=== PATIENT | female | born 1945 | race Caucasian/White ===

== ENCOUNTER 2017-02-04 14:35 | Observation (INO) ==
[2017-02-04] MEDS ORDERED: Aspirin 81 MG TAB.CHEW PO STA (14:56)
[2017-02-04] MEDS ORDERED: Gabapentin 300 MG CAPSULE PO SCH ×2 (15:00→21:00)
--- NOTE | 2017-02-04 15:04 | Emergency Department Note ---
Disposition Clinical Impression: HTN (hypertension) Qualifiers: Hypertension type: essential hypertension Qualified Code(s): I10 - Essential ( primary) hypertension Chest pain Qualifiers: Chest pain type: unspecified Qualified Code(s): R07.9 - Chest pain, unspecified Disposition: Admitted As Inpatient Condition: Fair Time of Disposition: 16:44 Chest Pain HPI - General Chief Complaint: ED General Medical Stated Complaint: "sent from PCP for high BP" Time Seen by Provider: 02/04/17 14:49 Source: EMS Limitations: no limitations Vital Signs Reviewed: Yes Nursing Notes Reviewed: Yes - History of Present Illness HPI Narrative: 71-year-old who went into her doctor's office for her routine follow-up was found to have elevated blood pressure. The office note list visual changes. Patient states that she is legally blind and that is not new. Notes state that she has a headache, however the patient denies a headache at this time. She does however complain of some chest pressure. Pt complaint: chest pain Onset (ago): Just TUR[place]ON[place] Duration: intermittent Onset: during rest Pain Location: substernal, left chest Severity: now resolved Severity scale (1-10): 0 Quality: tightness, aching Pain Radiation: none Improves with: nothing Worsens with: nothing Context: other (Is found to have elevated blood pressure at the office visit) Associated symptoms: Denies: nausea, vomiting Treatments prior to arrival chest pain: none - Related Data Home Medications Medication Instructions Recorded Confirmed Adalimumab [Humira Crohn's] 40 mg SQ Q2W 04/20/15 02/04/17 Albuterol Sulfate [Ventolin Hfa] 2 puff IH Q4H PRN 04/20/15 02/04/17 Atorvastatin Calcium [Lipitor] 20 mg PO HS 04/20/15 02/04/17 Budesonide/Formoterol 160/4.5 2 puff IH BIDR 04/20/15 02/04/17 [Symbicort] Ergocalciferol (VITAMIN D2) 50,000 unit PO SA 04/20/15 02/04/17 [Vitamin D2 (50,000 UNIT)] Gabapentin [Neurontin] 600 mg PO HS 04/20/15 02/04/17 Ibuprofen [Motrin] 800 mg PO TID PRN 04/20/15 02/04/17 LevETIRAcetam [Keppra] 500 mg PO Q12H 04/20/15 02/04/17 Metoprolol [Lopressor] 50 mg PO BID 04/20/15 02/04/17 Multivitamin/Iron/Folic Acid 1 each PO DAILY 04/20/15 02/04/17 [Centrum Complete Multivit Tab] Pantoprazole Sodium [Protonix] 40 mg PO DAILY 04/20/15 02/04/17 Sertraline [Zoloft] 100 mg PO DAILY 04/20/15 02/04/17 Ammonium Lactate 1 appl TP BID PRN 02/04/17 02/04/17 Betamethasone Dipropionate 1 appl TP BID 02/04/17 02/04/17 Bupropion HCl [Wellbutrin Xl] 300 mg PO QAM 02/04/17 02/04/17 Ciclopirox [Ciclopirox] 1 appl TP BID 02/04/17 02/04/17 Gabapentin [Neurontin] 300 mg PO BID 02/04/17 02/04/17 Lisinopril [Zestril] 20 mg PO DAILY 02/04/17 02/04/17 Magnesium 250 mg PO DAILY 02/04/17 02/04/17 Polyethylene Glycol 3350 [MiraLAX] 17 gm PO DAILY 02/04/17 02/04/17 Suvorexant [Belsomra] 20 mg PO HS PRN 02/04/17 02/04/17 Previous Rx's Medication Instructions Recorded Aspirin Enteric Coated [Aspirin EC] 81 mg PO DAILY #14 tablet. 04/21/15 Clopidogrel [Plavix] 75 mg PO DAILY #14 tablet 04/21/15 Allergies Allergy/AdvReac Type Severity Reaction Status Date / Time hydrocodone [From [place]] Allergy Rash Verified 04/20/15 16:45 Influenza Virus Vaccines Allergy See Verified 04/20/15 16:45 Comments Iodinated Contrast- Oral and Allergy Anaphylaxis Verified 04/20/15 12:48 IV Dye [Iodinated Contrast Media - IV Dye] All systems ED: reviewed and negative except as stated. Constitutional: Denies: fever, chills, weakness, weight change Eyes: Denies: eye pain, eye discharge, vision change ENT ED: Denies: ear pain, throat pain, dental pain, hearing loss, epistaxis, congestion, dysphagia Cardiovascular: Reports: chest pain. Denies: palpitations, dyspnea on exertion , edema, syncope Respiratory: Denies: cough, dyspnea, wheezes, hemoptysis, stridor Gastrointestinal: Denies: abdominal pain, nausea, vomiting, diarrhea, constipation, hematemesis, melena, hematochezia Genitourinary: Denies: dysuria, frequency, hematuria, discharge Musculoskeletal: Denies: back pain, neck pain, arthralgia, myalgia Integumentary: Denies: rash, abrasion, lesions Neurological: Denies: headache, weakness, numbness, paresthesias, confusion, abnormal gait, vertigo Psychiatric: Denies: anxiety, depression, suicidal thoughts, homicidal thoughts , auditory hallucinations, visual hallucinations Endocrine: Denies: fatigue Hematological/Lymphatic: Denies: easy bleeding, easy bruising Allergic/Immunologic: Denies: facial swelling, urticaria Chest Pain PMH - Past Medical History Medical history: Reports: CHF, coronary artery disease, CVA, GERD, hyperlipidemia, hypertension, myocardial infarction, pulmonary embolus, seizures , other Surgical history: Reports: appendectomy, cholecystectomy, hysterectomy, other ( had PEG and trach in 2008 with the Guillian [place], both have since been removed) Psychiatric history: Reports: depression - Social History Smoking Status: Current every day smoker Alcohol use: Reports: none Drug use: Reports: none Physical Exam - General Limitations: no limitations General appearance: alert - Head Head exam: atraumatic, normocephalic, normal inspection - Eye Eye exam: Present: normal appearance, PERRL, EOMI - ENT ENT exam: normal exam, normal oropharynx, mucous membranes moist - Neck Neck exam: Present: normal inspection, full ROM, trachea midline - Chest Chest inspection: Present: normal inspection, symmetric chest wall rise - Respiratory Respiratory exam: Present: normal lung sounds bilaterally - Cardiovascular Cardiovascular exam: Present: regular rate, normal rhythm, normal heart sounds - Abdominal Exam Abdominal exam: Present: soft, Non-Tender. Absent: tenderness, distention, guarding, rebound, rigidity - Extremities Exam Extremities exam: Present: normal inspection, full ROM. Absent: tenderness, pedal edema - Expanded Lower Extremity Exam Hip/Pelvis exam: Present: normal inspection, full ROM Neurovascular/Tendon exam: Absent: motor deficit, sensory deficit, tendon deficit - Back Exam Back exam: Present: normal inspection, full ROM. Absent: tenderness - Neurological Exam Neurological exam: Present: alert, oriented X3 - Psychiatric Psychiatric exam: Present: normal affect, normal mood - Skin Skin exam: Present: warm, dry, intact, normal color Course - Reevaluation(s) Reevaluation #1: 71-year-old female who comes in with chest pressure elevated blood pressure. EKG does show new changes in V4 through V6. She has T-wave inversion in those leads that is new. She will be admitted for evaluation and treatment. Time: 16:43 - Consultations Consultation #1: Discussed with , admit the patient, she would like the patient to have 10 mg of hydralazine IV for her blood pressure. Time: 16:43 Vital Signs Temperature 96.2 F L 02/04/17 14:38 Pulse Rate 48 02/04/17 14:38 Respiratory Rate 16 02/04/17 14:38 Blood Pressure 186/94 02/04/17 14:38 O2 Sat by Pulse Oximetry 93 02/04/17 14:38 Temperature 97.3 F L 02/04/17 21:26 Pulse Rate 47 02/04/17 21:26 Respiratory Rate 16 02/04/17 21:26 Blood Pressure 193/78 02/04/17 21:26 O2 Sat by Pulse Oximetry 95 02/04/17 21:26 Oxygen Delivery Oxygen Delivery Room Air Chest Pain - Lab Data Result diagrams: 02/04/17 15:20 02/04/17 15:20 Lab Results 02/04/17 02/04/17 02/04/17 Range/Units 15:20 15:20 15:20 WBC 13.1 H (4.3-11.1) K/mcL RBC 5.01 H (3.82-4.97) M/mcL Hgb 15.2 (11.5-15.4) g/dL Hct 45.0 H (35.3-44.9) % MCV 89.8 (83.0-100.0) fL MCH 30.3 (28.0-33.3) pg MCHC 33.8 (31.6-35.5) g/dL RDW 11.4 L (11.5-14.5) % Plt Count 203 (140-400) K/mcL MPV 10.8 (9.4-12.4) fL Immature Gran % 0.2 (0-4) % Seg Neutrophils % 50.9 % Lymphocytes % 38.6 % Monocytes % 7.0 % Eosinophils % 2.8 % Basophils % 0.5 % Neutrophils # 6.7 (1.6-8.9) K/mcL Lymphocytes # 5.1 H (0.6-4.6) K/mcL Monocytes # 0.9 (0.0-1.3) K/mcL Eosinophils # 0.4 (0.0-0.6) K/mcL Basophils # 0.1 (0.0-0.2) K/mcL PT 11.1 (9.4-12.1) Seconds INR 1.0 APTT 30.2 (26.0-36.0) Seconds Sodium (136-145) mEq/L Potassium (3.5-4.5) mEq/L Chloride (98-109) mEq/L Carbon Dioxide (19-29) mEq/L BUN (7-20) mg/dL Creatinine (0.57-1.11) mg/dL Est GFR ( Amer) (> 60) Est GFR (Non-Af Amer) (> 60) BUN/Creatinine Ratio (6-26) Glucose (70-99) mg/dL Calculated Osmolality (280-300) Calcium (8.6-10.8) mg/dL Troponin I (0-0.03) ng/mL B-Natriuretic Peptide 195 H (0-100) pg/mL 02/04/17 02/04/17 Range/Units 15:20 15:20 WBC (4.3-11.1) K/mcL RBC (3.82-4.97) M/mcL Hgb (11.5-15.4) g/dL Hct (35.3-44.9) % MCV (83.0-100.0) fL MCH (28.0-33.3) pg MCHC (31.6-35.5) g/dL RDW (11.5-14.5) % Plt Count (140-400) K/mcL MPV (9.4-12.4) fL Immature Gran % (0-4) % Seg Neutrophils % % Lymphocytes % % Monocytes % % Eosinophils % % Basophils % % Neutrophils # (1.6-8.9) K/mcL Lymphocytes # (0.6-4.6) K/mcL Monocytes # (0.0-1.3) K/mcL Eosinophils # (0.0-0.6) K/mcL Basophils # (0.0-0.2) K/mcL PT (9.4-12.1) Seconds INR APTT (26.0-36.0) Seconds Sodium 138 (136-145) mEq/L Potassium 3.9 (3.5-4.5) mEq/L Chloride 103 (98-109) mEq/L Carbon Dioxide 25 (19-29) mEq/L BUN 13 (7-20) mg/dL Creatinine 0.86 (0.57-1.11) mg/dL Est GFR ( Amer) > 60 (> 60) Est GFR (Non-Af Amer) > 60 (> 60) BUN/Creatinine Ratio 15 (6-26) Glucose 93 (70-99) mg/dL Calculated Osmolality 286 (280-300) Calcium 10.6 (8.6-10.8) mg/dL Troponin I 0.01 (0-0.03) ng/mL B-Natriuretic Peptide (0-100) pg/mL Heart Score - Score History: Moderately Suspicious EKG: Non Specific repolarisation Disturbance Age: Greater than 65 Risk Factors: Equal/Greater than 3 risk factor or history of atherosclerotic disease Troponin: Less than normal limit HEART Score Total: 6
[2017-02-04 15:35] LABS: Prothrombin Time 11.1 Seconds (9.4-12.1)
[2017-02-04 15:38] LABS: Activated Partial Thrombo Time 30.2 Seconds (26.0-36.0); Basophils # 0.1 K/mcL (0.0-0.2); Basophils % 0.5 %; Eosinophils # 0.4 K/mcL (0.0-0.6); Eosinophils % 2.8 %; Hemoglobin 15.2 g/dL (11.5-15.4); Immature Granulocytes % 0.2 % (0-4); Lymphocytes # 5.1 K/mcL (0.6-4.6); Lymphocytes % 38.6 %; Mean Corpuscular HGB Conc 33.8 g/dL (31.6-35.5); Mean Corpuscular Hemoglobin 30.3 pg (28.0-33.3); Mean Corpuscular Volume 89.8 fL (83.0-100.0); Mean Platelet Volume 10.8 fL (9.4-12.4); Monocytes # 0.9 K/mcL (0.0-1.3); Neutrophils # 6.7 K/mcL (1.6-8.9); Platelet Count 203 K/mcL (140-400); Red Blood Count 5.01 M/mcL (3.82-4.97); Red Cell Distribution Width 11.4 % (11.5-14.5); Segmented Neutrophils % 50.9 %
[2017-02-04 15:41] LABS: BUN/Creatinine Ratio 15 (6-26); Blood Urea Nitrogen 13 mg/dL (7-20); Calcium 10.6 mg/dL (8.6-10.8); Carbon Dioxide 25 mEq/L (19-29); Chloride 103 mEq/L (98-109); Glucose 93 mg/dL (70-99); Osmolality,Calculated 286 (280-300); Potassium 3.9 mEq/L (3.5-4.5); Sodium 138 mEq/L (136-145); eGFR For African Americans > 60 (> 60); eGFR For Non-African Americans > 60 (> 60)
[2017-02-04] MEDS ORDERED: Naloxone 0.4 MG/ML INJ IVP PRN (19:28)
[2017-02-04] MEDS ORDERED: Acetaminophen 325 MG TABLET PO PRN (19:28)
[2017-02-04] MEDS ORDERED: Ibuprofen 800 MG TABLET PO PRN (19:30)
[2017-02-04] MEDS ORDERED: Ammonium Lactate 30 APPL/225 GM BOTTLE TP PRN (19:30)
[2017-02-04] MEDS ORDERED: Lisinopril 20 MG TABLET PO ONE (22:15)
[2017-02-04] MEDS: levETIRAcetam 250 MG TABLET PO SCH (22:25)
--- NOTE | 2017-02-04 23:00 | Internal Med History&Physical ---
<SaenzKayla M - Last Filed: 02/04/17 22:57> Date of Encounter: 02/04/17 Time of Encounter: 22:57 Assessment and Plan (1) Hypertensive urgency Current visit: Yes Status: Acute Patient sent over from PCP's office with elevated blood pressure. She is also reporting some chest pressure and headache, now resolved. Blood pressures were running 160s-190s/70s-100s. One dose of hydralazine given in ER. Will give extra dose of lisinopril tonight and increase dose to 40mg daily. Continue home doses of medications and give hydralazine 10mg IVP Q6hr PRN for SBP > 160 or DBP > 100. 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 Echocardiogram. (2) Chest pain Current visit: Yes Status: Acute Patient reporting left sided chest ache that comes and goes. EKG showed t-wave inversions in v4-v6. First 2 troponins negative. 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 Qualifiers: Chest pain type: precordial pain Qualified Code(s): R07.2 - Precordial pain (3) History of CVA (cerebrovascular accident) Current visit: Yes Status: Acute Patient has history of CVA with residual left sided weakness. She denies any new focal weakness. She is neurologically intact. Continue home doses of aspirin, statin and plavix. (4) COPD (chronic obstructive pulmonary disease) Current visit: Yes Status: Acute Patient with wheezing bilaterally. She reports increased shortness of breath at night and when laying down. Will order duoneb treatments QID. Continue albuterol inhaler PRN. Qualifiers: COPD type: unspecified COPD Qualified Code(s): J44.9 - Chronic obstructive pulmonary disease, unspecified (5) DVT prophylaxis Current visit: Yes Status: Acute anti-embolic stockings heparin TID Internal Medicine - H&P: HPI Chief complaint: hypertension Admitted From: Emergency Dept Plans for Post Hospital Care: Home History of present illness: Ms. Farris is a 71 year old female with hypertension, hyperlipidemia, CHF, coronary artery disease, history of pulmonary embolism, seizure disorder, COPD, history of guillan-barre, history of CVA with residual left sided weakness, presented to the emergency department today with with complaints of increased blood pressure. Patient was sent from her PCPs office for elevated blood pressure. She does report headache, chest pressure, palpitations, nausea, lightheadedness, dizziness, increased falls, shortness of breath at night, but all of these seem to be more chronic in nature. Patient reports her chest pressure is on the left side of her chest, comes and goes, is nonradiating. Evaluation emergency department included an EKG which showed T-wave inversions in V4 to V6. Troponin was negative at 0.01. BNP was elevated at 195. White blood cell count was mildly elevated at 13.1. Chest x-ray showed small left pleural effusion and no acute cardiopulmonary disease. Blood pressure was running high at 160-190s/90s-100s. Patient was given 1 dose of hydralazine. She has bradycardia with heart rate running in the 40s to 50s, this also appears to be chronic looking at previous admissions. On exam, patient alert and oriented, in no acute distress. Heart has regular rhythm with tachycardic rate. Lungs have scattered wheezes bilaterally. Abdomen is soft, nontender with positive bowel sounds. No peripheral edema. Past Med Surg Social Fam HX - Past Medical History Medical history: CHF, coronary artery disease, CVA, GERD, hyperlipidemia, hypertension, myocardial infarction, pulmonary embolus, seizures, other Psychiatric history: depression - Past Surgical History Surgical History: appendectomy, cholecystectomy, hysterectomy, other (had PEG and trach in 2008 with the Guillian [place], both have since been removed) - Social History Smoking Status: Current every day smoker Smokeless Tobacco Status: No Alcohol use: none Drug use: none - Family History Father Living Status: Age at : 71 Cause of : [place]/heart attack Hx Family Cardiac Disorders: Yes Mother Living Status: Age at : 60 Cause of : [place]/heart attack Hx Family Cardiac Disorders: Yes Internal Medicine - H&P: Meds Adalimumab [Humira Crohn's] 40 mg SQ Q2W 04/20/15 [History] Albuterol Sulfate [Ventolin Hfa] 2 puff IH Q4H PRN 04/20/15 [History] Atorvastatin Calcium [Lipitor] 20 mg PO HS 04/20/15 [History] Budesonide/Formoterol 160/4.5 [Symbicort] 2 puff IH BIDR 04/20/15 [History] Ergocalciferol (VITAMIN D2) [Vitamin D2 (50,000 UNIT)] 50,000 unit PO SA [History] Gabapentin [Neurontin] 600 mg PO HS 04/20/15 [History] Ibuprofen [Motrin] 800 mg PO TID PRN 04/20/15 [History] LevETIRAcetam [Keppra] 500 mg PO Q12H 04/20/15 [History] Metoprolol [Lopressor] 50 mg PO BID 04/20/15 [History] Multivitamin/Iron/Folic Acid [Centrum Complete Multivit Tab] 1 each PO DAILY [History] Pantoprazole Sodium [Protonix] 40 mg PO DAILY 04/20/15 [History] Sertraline [Zoloft] 100 mg PO DAILY 04/20/15 [History] Aspirin Enteric Coated [Aspirin EC] 81 mg PO DAILY #14 tablet. 04/21/15 [Rx] Clopidogrel [Plavix] 75 mg PO DAILY #14 tablet 04/21/15 [Rx] Ammonium Lactate 1 appl TP BID PRN 02/04/17 [History] Betamethasone Dipropionate 1 appl TP BID 02/04/17 [History] Bupropion HCl [Wellbutrin Xl] 300 mg PO QAM 02/04/17 [History] Ciclopirox [Ciclopirox] 1 appl TP BID 02/04/17 [History] Gabapentin [Neurontin] 300 mg PO BID 02/04/17 [History] Lisinopril [Zestril] 20 mg PO DAILY 02/04/17 [History] Magnesium 250 mg PO DAILY 02/04/17 [History] Polyethylene Glycol 3350 [MiraLAX] 17 gm PO DAILY 02/04/17 [History] Suvorexant [Belsomra] 20 mg PO HS PRN 02/04/17 [History] 3 Allergy/AdvReac Type Severity Reaction Status Date / Time hydrocodone [From [place]] Allergy Rash Verified 04/20/15 16:45 Influenza Virus Vaccines Allergy See Verified 04/20/15 16:45 Comments Iodinated Contrast- Oral and Allergy Anaphylaxis Verified 04/20/15 12:48 IV Dye [Iodinated Contrast Media - IV Dye] All Systems PM: A 10-system review of systems was performed and is negative for pertinent findings except as documented above in the HPI. - Constitutional Constitutional: no chills, no fever(s), no night sweats - EENT Eyes: no change in vision, no discharge, no pain, no photophobia Ears: no ear discharge, no ear pain, no tinnitus Nose, mouth and throat: no dysphagia, no nasal discharge, no neck pain, no sore throat - Cardiovascular Cardiovascular ROS IM: chest pain, dyspnea, lightheadedness, palpitations, paroxysmal nocturnal dyspnea, no diaphoresis, no syncope - Respiratory Respiratory: cough, dyspnea, no wheezing, no excessive phlegm production - Gastrointestinal Gastrointestinal: nausea, no abdominal pain, no diarrhea, no hematemesis, no hematochezia, no melena, no vomiting - Genitourinary Genitourinary: no change in urinary stream, no dysuria, no flank pain, no hematuria - Musculoskeletal Musculoskeletal ROS IM: no numbness, no tingling - Integumentary Integumentary IM: no rash, no unusual bruising - Neurological Neurological ROS: no confusion, no convulsions, no focal weakness, no numbness, no tingling, no tremor(s) - Hematologic/Lymphatic Hematologic/Lymphatic: no easy bruising - Constitutional Vitals: Temp Pulse Resp BP Pulse Ox 97.3 F L 47 16 193/78 95 02/04/17 21:26 02/04/17 21:26 02/04/17 21:26 02/04/17 21:26 02/04/17 21:26 General appearance: Present: A&O X 3, pleasant, no acute distress - Head Head exam: Present: atraumatic, normocephalic - Eye Eye exam: Present: PERRL, conjuntiva pink, sclera anicteric Pupils: Present: PERRL - Neck Neck exam general surgery: Present: supple, trachea midline. Absent: lymphadenopathy - Respiratory Respiratory exam: Present: wheezes. Absent: accessory muscle use, rales, rhonchi - Cardiovascular Cardiovascular exam: Present: bradycardia, RRR, +S1, +S2. Absent: diastolic murmur, gallop, rubs, systolic murmur - GI/Abdominal GI/Abdominal exam: Present: normal bowel sounds, soft, no peritoneal signs. Absent: distended, tenderness - Extremities Exam Extremities exam: Present: warm, radial pulses palpable and symmetrical. Absent : calf tenderness, cyanotic, pedal edema - Neurological Exam Neurological exam: Present: CN II-XII intact, oriented X3, no focal deficits. Absent: pronater drift, facial droop, speech deficit - Skin Skin exam: Present: dry, intact Internal Med - H&P Results - Labs CBC & Chem 7: 02/04/17 15:20 02/04/17 15:20 Labs: All Lab Results (24 Hours) 02/04/17 02/04/17 02/04/17 Range/Units 15:20 15:20 15:20 WBC 13.1 H (4.3-11.1) K/mcL RBC 5.01 H (3.82-4.97) M/mcL Hgb 15.2 (11.5-15.4) g/dL Hct 45.0 H (35.3-44.9) % MCV 89.8 (83.0-100.0) fL MCH 30.3 (28.0-33.3) pg MCHC 33.8 (31.6-35.5) g/dL RDW 11.4 L (11.5-14.5) % Plt Count 203 (140-400) K/mcL MPV 10.8 (9.4-12.4) fL Immature Gran % 0.2 (0-4) % Seg Neutrophils % 50.9 % Lymphocytes % 38.6 % Monocytes % 7.0 % Eosinophils % 2.8 % Basophils % 0.5 % Neutrophils # 6.7 (1.6-8.9) K/mcL Lymphocytes # 5.1 H (0.6-4.6) K/mcL Monocytes # 0.9 (0.0-1.3) K/mcL Eosinophils # 0.4 (0.0-0.6) K/mcL Basophils # 0.1 (0.0-0.2) K/mcL PT 11.1 (9.4-12.1) Seconds INR 1.0 APTT 30.2 (26.0-36.0) Seconds Sodium (136-145) mEq/L Potassium (3.5-4.5) mEq/L Chloride (98-109) mEq/L Carbon Dioxide (19-29) mEq/L BUN (7-20) mg/dL Creatinine (0.57-1.11) mg/dL Est GFR ( Amer) (> 60) Est GFR (Non-Af Amer) (> 60) BUN/Creatinine Ratio (6-26) Glucose (70-99) mg/dL Calculated Osmolality (280-300) Calcium (8.6-10.8) mg/dL Troponin I (0-0.03) ng/mL B-Natriuretic Peptide 195 H (0-100) pg/mL 02/04/17 02/04/17 02/04/17 Range/Units 15:20 15:20 21:10 WBC (4.3-11.1) K/mcL RBC (3.82-4.97) M/mcL Hgb (11.5-15.4) g/dL Hct (35.3-44.9) % MCV (83.0-100.0) fL MCH (28.0-33.3) pg MCHC (31.6-35.5) g/dL RDW (11.5-14.5) % Plt Count (140-400) K/mcL MPV (9.4-12.4) fL Immature Gran % (0-4) % Seg Neutrophils % % Lymphocytes % % Monocytes % % Eosinophils % % Basophils % % Neutrophils # (1.6-8.9) K/mcL Lymphocytes # (0.6-4.6) K/mcL Monocytes # (0.0-1.3) K/mcL Eosinophils # (0.0-0.6) K/mcL Basophils # (0.0-0.2) K/mcL PT (9.4-12.1) Seconds INR APTT (26.0-36.0) Seconds Sodium 138 (136-145) mEq/L Potassium 3.9 (3.5-4.5) mEq/L Chloride 103 (98-109) mEq/L Carbon Dioxide 25 (19-29) mEq/L BUN 13 (7-20) mg/dL Creatinine 0.86 (0.57-1.11) mg/dL Est GFR ( Amer) > 60 (> 60) Est GFR (Non-Af Amer) > 60 (> 60) BUN/Creatinine Ratio 15 (6-26) Glucose 93 (70-99) mg/dL Calculated Osmolality 286 (280-300) Calcium 10.6 (8.6-10.8) mg/dL Troponin I 0.01 0.01 (0-0.03) ng/mL B-Natriuretic Peptide (0-100) pg/mL - Diagnostic Studies Chest x-ray Additional comments: Chest X-Ray 02/04/17 14:55 IMPRESSION: Small left pleural effusion. Otherwise, no acute cardiopulmonary disease. D/ / Jeferson Burton MD / Jeferson Burton MD Interpreting Provider: Jeferson Burton MD <Omkar Parkinson - Last Filed: 02/05/17 03:14> Date of Encounter: 02/05/17 Internal Medicine - H&P: HPI History of present illness: Ms. Farris is a 71 year old female All Systems PM: A 10-system review of systems was performed and is negative for pertinent findings except as documented above in the HPI. - Constitutional Vitals: Temp Pulse Resp BP Pulse Ox 97.5 F L 46 16 177/96 97 02/04/17 23:13 02/04/17 23:13 02/04/17 23:15 02/04/17 23:13 02/04/17 23:15 Internal Med - H&P Results - Labs CBC & Chem 7: 02/04/17 15:20 02/04/17 15:20 Labs: Cardiac Enzymes 02/04/17 Range/Units 21:10 Troponin I 0.01 (0-0.03) ng/mL - Attending Attestation For this encounter, I have reviewed the STATE'S ATTORNEY or PA documentation, treatment plan, and medical decision making; and I have had face to face time with this patient. I have seen and examined the patient. I have reviewed the orders and the note. Patient presents with chest pain and hypertensive urgency. Troponin is negative. EKG does not show any acute ST-T changes. Patient has been started on metoprolol, lisinopril and is on hydralazine IV when necessary. No other complaints. Heart rate 46, blood pressure 177/96, O2 sat 97% on room air. Heart S1-S2 positive. Lungs bilateral good air entry, clear. Abdomen soft nontender. Neurological awake and alert, no focal deficits.
[2017-02-04] MEDS: Budesonide/Formoterol 160/4.5 MDI IH SCH (23:15)
[2017-02-05] MEDS: Ipratropium/Albuterol Neb 3 ML IH SCH ×3 (03:30→10:18)
[2017-02-05 04:45] LABS: Basophils % 0.4 %; Eosinophils # 0.3 K/mcL (0.0-0.6); Eosinophils % 3.8 %; Hematocrit 41.6 % (35.3-44.9); Hemoglobin 14.2 g/dL (11.5-15.4); Immature Granulocytes % 0.2 % (0-4); Lymphocytes # 3.5 K/mcL (0.6-4.6); Lymphocytes % 39.3 %; Mean Corpuscular HGB Conc 34.1 g/dL (31.6-35.5); Mean Corpuscular Hemoglobin 30.1 pg (28.0-33.3); Mean Corpuscular Volume 88.1 fL (83.0-100.0); Mean Platelet Volume 11.1 fL (9.4-12.4); Monocytes # 0.8 K/mcL (0.0-1.3); Monocytes % 8.5 %; Neutrophils # 4.3 K/mcL (1.6-8.9); Platelet Count 196 K/mcL (140-400); Red Blood Count 4.72 M/mcL (3.82-4.97); Red Cell Distribution Width 11.5 % (11.5-14.5); Segmented Neutrophils % 47.8 %
[2017-02-05 05:00] LABS: BUN/Creatinine Ratio 14 (6-26); Blood Urea Nitrogen 11 mg/dL (7-20); Carbon Dioxide 26 mEq/L (19-29); Chloride 104 mEq/L (98-109); Glucose 115 mg/dL (70-99); Osmolality,Calculated 288 (280-300); Potassium 3.6 mEq/L (3.5-4.5); Sodium 139 mEq/L (136-145); eGFR For African Americans > 60 (> 60); eGFR For Non-African Americans > 60 (> 60)
[2017-02-05] MEDS: *HR* Heparin 5,000 UNIT/ML VIAL SQ SCH ×2 (05:30→14:37)
[2017-02-05] MEDS ORDERED: Gabapentin 300 MG CAPSULE PO SCH (08:00)
[2017-02-05] MEDS ORDERED: BuPROPion XL (24 HR) 150 MG TABLET PO SCH (09:00)
[2017-02-05] MEDS ORDERED: Aspirin Enteric Coated 81 MG Tablet PO SCH (09:00)
[2017-02-05] MEDS ORDERED: Multivit/Ca/Min/Fe/FA 1 TAB TABLET PO SCH (09:00)
[2017-02-05] MEDS ORDERED: Lisinopril 20 MG TABLET PO SCH ×2 (09:00)
[2017-02-05] MEDS ORDERED: Nicotine 21 MG PATCH.TD24 TD SCH (09:00)
[2017-02-05] MEDS ORDERED: Magnesium Oxide 400 MG TABLET PO SCH ×2 (09:00)
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
[2017-02-05] MEDS: levETIRAcetam 250 MG TABLET PO SCH (10:09)
[2017-02-05] MEDS: Budesonide/Formoterol 160/4.5 MDI IH SCH (10:18)
[2017-02-05 12:43] VITALS: BP 170/100
--- NOTE | 2017-02-05 14:59 | Electrocardiograph Report ---
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
[2017-02-05] MEDS ORDERED: amLODIPine 5 MG TABLET PO SCH (15:00)
--- NOTE | 2017-02-05 15:50 | Physician Discharge Referral ---
Home Health/Hosp Referral Info Transfer to: Home Health Provider in Charge Post Discharge: PCP - Diagnosis (1) Hypertensive urgency Priority: Primary Status: Acute (2) History of CVA (cerebrovascular accident) Priority: Secondary Status: Acute (3) COPD (chronic obstructive pulmonary disease) Priority: Secondary Status: Acute (4) Chest pain Priority: Secondary Status: Acute - Respiratory Orders Smoking Cessation: Smoking cessation has been advised. For more information, call the [place] Tobacco Quit Line at 8-371-FSER-NOW. - Diet/Nutrition Diet/Nutrition Orders: Cardiac - Services Needed Following services are medically necessary services: Nursing, Home Health Aide - Transfer Medications Prescriptions: amLODIPine [Norvasc] 5 mg PO DAILY #30 tab Lisinopril [Zestril] 40 mg PO DAILY #60 tab Home Medications: Adalimumab [Humira Pen Crohn-Uc-Hs Starter] 40 mg SQ Q2W 04/20/15 [History] Albuterol Sulfate [Ventolin Hfa] 2 puff IH Q4H PRN 04/20/15 [History] Atorvastatin Calcium [Lipitor] 20 mg PO HS 04/20/15 [History] Budesonide/Formoterol 160/4.5 [Symbicort] 2 puff IH BIDR 04/20/15 [History] Ergocalciferol (VITAMIN D2) [Vitamin D2 (50,000 UNIT)] 50,000 unit PO SA [History] Gabapentin [Neurontin] 600 mg PO HS 04/20/15 [History] LevETIRAcetam [Keppra] 500 mg PO Q12H 04/20/15 [History] Metoprolol [Lopressor] 50 mg PO BID 04/20/15 [History] Multivitamin/Iron/Folic Acid [Centrum Complete Multivit Tab] 1 each PO DAILY [History] Pantoprazole Sodium [Protonix] 40 mg PO DAILY 04/20/15 [History] Sertraline [Zoloft] 100 mg PO DAILY 04/20/15 [History] Aspirin Enteric Coated [Aspirin EC] 81 mg PO DAILY #14 tablet. 04/21/15 [Rx] Clopidogrel [Plavix] 75 mg PO DAILY #14 tablet 04/21/15 [Rx] Ammonium Lactate 1 appl TP BID PRN 02/04/17 [History] Betamethasone Dipropionate 1 appl TP BID 02/04/17 [History] Bupropion HCl [Wellbutrin Xl] 300 mg PO QAM 02/04/17 [History] Ciclopirox 1 appl TP BID 02/04/17 [History] Gabapentin [Neurontin] 300 mg PO BID 02/04/17 [History] Magnesium 250 mg PO DAILY 02/04/17 [History] Polyethylene Glycol 3350 [MiraLAX] 17 gm PO DAILY 02/04/17 [History] Suvorexant [Belsomra] 20 mg PO HS PRN 02/04/17 [History] Lisinopril [Zestril] 40 mg PO DAILY #60 tab 02/05/17 [Rx] amLODIPine [Norvasc] 5 mg PO DAILY #30 tab 02/05/17 [Rx] Allergies/Adverse Reactions: 3 Allergy/AdvReac Type Severity Reaction Status Date / Time hydrocodone [From [place]] Allergy Rash Verified 04/20/15 16:45 Influenza Virus Vaccines Allergy See Verified 04/20/15 16:45 Comments Iodinated Contrast- Oral and Allergy Anaphylaxis Verified 04/20/15 12:48 IV Dye [Iodinated Contrast Media - IV Dye] Certification: Further, I certify that my clinical findings support that this patient is homebound (i.e. absences from home require considerable and taxing effort and are for medical reasons or buddhist services or infrequently or short duration when for other reasons) because: Homebound Reason: Patient requires assistance of a person or device to safely leave home, Leaving home requires considerable and taxing effort due to condition Attestation: My signature below is to certify that this patient is under my care and that I, or nurse practitioner, or a physician's construction management assistant working with me, has a face-to -face encounter with this patient.
== END 2017-02-05 16:45 | disposition home health service (06) ==
LOC: EMEROO 14:35 → 2ANU 14:35 → SUATTDRO 17:21 → 2ANU 18:39
PROVIDERS: ADMIT Internal Medicine; ATTEND Internal Medicine

== ENCOUNTER 2017-05-08 15:56 | Inpatient (IN) ==
--- NOTE | 2017-05-08 16:14 | Emergency Department Note ---
Disposition Clinical Impression: Compression fracture Fall Qualifiers: Encounter type: initial encounter Qualified Code(s): W19.XXXA - Unspecified fall, initial encounter Disposition: Admitted As Inpatient Condition: Fair Time of Disposition: 19:33 Fall HPI - General Chief Complaint: ED Fall Stated Complaint: fall Time Seen by Provider: 05/08/17 16:00 Source: patient, EMS Mode of arrival: EMS Limitations: no limitations Nursing Notes Reviewed: Yes Vital Signs Reviewed: Yes - History of Present Illness HPI Narrative: 72-year-old female history of CVA presents with fall and back pain. Patient was at home working was physical therapy when she fell on her butt and fell back , striking her back on the ground. She denies any head injury, loss of consciousness or neck pain. Initially her pain was a 10 out of 10 during the EMS transit, it has come down to a 6. She denies any radiation to her legs. Denies any urinary incontinence, fecal incontinence or new leg weakness. Denies any other symptoms. Denies any anticoagulants use. She states this was purely a mechanical fall denies any prodromal symptoms such as headache, nausea , vomiting, chest pain or shortness of breath. - Related Data Home Medications Medication Instructions Recorded Confirmed Adalimumab [Humira Pen Crohn-Uc-Hs 40 mg SQ Q2W 04/20/15 05/08/17 Starter] Albuterol Sulfate [Ventolin Hfa] 2 puff IH Q4H PRN 04/20/15 05/08/17 Atorvastatin Calcium [Lipitor] 20 mg PO HS 04/20/15 05/08/17 Budesonide/Formoterol 160/4.5 2 puff IH BIDR 04/20/15 05/08/17 [Symbicort] Ergocalciferol (VITAMIN D2) 50,000 unit PO SA 04/20/15 05/08/17 [Vitamin D2 (50,000 UNIT)] Gabapentin [Neurontin] 600 mg PO HS 04/20/15 05/08/17 LevETIRAcetam [Keppra] 500 mg PO Q12H 04/20/15 05/08/17 Multivitamin/Iron/Folic Acid 1 each PO DAILY 04/20/15 05/08/17 [Centrum Complete Multivit Tab] Pantoprazole Sodium [Protonix] 40 mg PO DAILY 04/20/15 05/08/17 Sertraline [Zoloft] 100 mg PO DAILY 04/20/15 05/08/17 Ammonium Lactate 1 appl TP BID PRN 02/04/17 05/08/17 Betamethasone Dipropionate 1 appl TP BID 02/04/17 05/08/17 Bupropion HCl [Wellbutrin Xl] 300 mg PO QAM 02/04/17 05/08/17 Ciclopirox 1 appl TP BID 02/04/17 05/08/17 Gabapentin [Neurontin] 300 mg PO BID 02/04/17 05/08/17 Magnesium 250 mg PO DAILY 02/04/17 05/08/17 Polyethylene Glycol 3350 [MiraLAX] 17 gm PO DAILY 02/04/17 05/08/17 Suvorexant [Belsomra] 20 mg PO HS PRN 02/04/17 05/08/17 Ibuprofen [Motrin] 800 mg PO TID PRN 05/08/17 05/08/17 Metoprolol [Lopressor] 25 mg PO BID 05/08/17 05/08/17 Previous Rx's Medication Instructions Recorded Aspirin Enteric Coated [Aspirin EC] 81 mg PO DAILY #14 tablet. 04/21/15 Clopidogrel [Plavix] 75 mg PO DAILY #14 tablet 04/21/15 Lisinopril [Zestril] 40 mg PO DAILY #60 tab 02/05/17 amLODIPine [Norvasc] 5 mg PO DAILY #30 tab 02/05/17 OxyCODONE/APAP 5/325 [Percocet 1 each PO Q4HR PRN #10 tablet 05/12/17 5/325 MG] Allergies Allergy/AdvReac Type Severity Reaction Status Date / Time hydrocodone [From [place]] Allergy Rash Verified 04/20/15 16:45 Influenza Virus Vaccines Allergy See Verified 04/20/15 16:45 Comments Iodinated Contrast- Oral and Allergy Anaphylaxis Verified 04/20/15 12:48 IV Dye [Iodinated Contrast Media - IV Dye] All systems ED: reviewed and negative except as stated. Review of Systems: As Per HPI Constitutional: Denies: fever, chills Eyes: Denies: vision change ENT ED: Denies: congestion Cardiovascular: Denies: chest pain Respiratory: Denies: cough, dyspnea Gastrointestinal: Denies: abdominal pain, nausea, vomiting Genitourinary: Denies: urgency, dysuria Musculoskeletal: Reports: back pain. Denies: neck pain Integumentary: Denies: rash, abrasion Neurological: Reports: weakness. Denies: headache, abnormal gait Psychiatric: Denies: anxiety, depression Fall PMH - Past Medical History Medical history: Reports: CHF, coronary artery disease, CVA, GERD, hyperlipidemia, hypertension, myocardial infarction, pulmonary embolus, seizures , other Surgical history: Reports: appendectomy, cholecystectomy, hysterectomy, other ( had PEG and trach in 2009 with the Guillian Nadeau, both have since been removed) Psychiatric history: Reports: ADHD, depression - Social History Smoking Status: Current every day smoker Alcohol use: Reports: none Drug use: Reports: none Physical Exam - General Limitations: no limitations General appearance: alert, in distress (appears uncomfortable) - Head Head exam: atraumatic, normocephalic, normal inspection - Eye Eye exam: Present: normal appearance, PERRL, EOMI - ENT ENT exam: normal exam, normal oropharynx, mucous membranes moist - Neck Neck exam: Present: normal inspection, full ROM, trachea midline. Absent: tenderness - Expanded Neck Exam Neck exam focused ED: Absent: midline tenderness, paraspinal tenderness - Chest Chest inspection: Present: normal inspection, symmetric chest wall rise. Absent : tenderness - Respiratory Respiratory exam: Present: normal lung sounds bilaterally. Absent: respiratory distress, wheezes - Cardiovascular Cardiovascular exam: Present: regular rate, normal rhythm, normal heart sounds - Abdominal Exam Abdominal exam: Present: soft, Non-Tender, normal bowel sounds. Absent: tenderness, distention, guarding, rebound, rigidity - Expanded Lower Extremity Exam Hip/Pelvis exam: Present: normal inspection, full ROM, pelvis stable. Absent: deformity, external rotation, internal rotation Upper leg exam: Present: normal inspection, full ROM Knee exam: Present: normal inspection, full ROM Lower leg exam: Present: normal inspection, full ROM Ankle exam: Present: normal inspection, full ROM Foot/toe exam: Present: normal inspection, full ROM Neurovascular/Tendon exam: Present: normal capillary refill. Absent: motor deficit, sensory deficit - Back Exam Back exam: Present: vertebral tenderness (lower lumbar tenderness with some crepitus near L2-L4) - Neurological Exam Neurological exam: Present: alert, oriented X3. Absent: motor sensory deficit - Expanded Neurological Exam Motor strength - LUE: 5/5 Motor strength - RUE: 5/5 Motor strength - LLE: 5/5 Motor strength - RLE: 5/5 Upper motor neuron exam: collin neglect: Absent bilaterally Sensory exam upper extremity: light touch: Normal Sensory exam lower extremity: light touch: Normal - Psychiatric Psychiatric exam: Present: normal affect, normal mood - Skin Skin exam: Present: warm, dry, intact, normal color Course - Reevaluation(s) Reevaluation #1: X-ray of her thoracic and lumbar spine show age indeterminate compression fracture. Reevaluation patient has point tenderness to T4 as well as L3. She does not have any focal neurologic deficits. Lower extremities are equal strength bilaterally. Sensation is intact. Patient was able to urinate without difficulty at the bedside commode. Pain controlled with morphine. Radiologist recommend MRI for bone edema, will obtain a CT of the spine to evaluate any retropulsion of fracture. Patient is neurologically intact and is not suspect. This will also provide more information on the acuity of the fracture. Patients in agreement with this plan. Reevaluation #2: CT of the thoracic lumbar spine show acute compression fracture of L3. There multiple other incidental findings. Findings were discussed with the patient. Spoke to the category specialist Dr. Barros regarding discharge home versus admission. 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 She arrived here by EMS. She is unsure if she will be able to have transportation back to [place] for outpatient follow-up. Her pain is moderately controlled after morphine and after discussing these options with the patient she would prefer admission for pain control as well as appropriate follow-up. Dr. Barros is in agreement with this plan for admission possible kyphoplasty in the morning versus 9a follow tomorrow morning. Impression is fall, back pain , compression fracture. Patient remains neurologically intact. No signs for cauda equina. She stable for transfer to the floor and admission. - Consultations Consultation #1: Spoke to the spinal surgeon Dr. Barros, recommend kyphoplasty sometime tomorrow. Patient reports a history of GBS and CVA unable to drive herself, concern she would not be able to come back for her appointment tomorrow morning. Patient was also transported here by EMS. Will get hurt here for pain control and consultation tomorrow for possible surgery. Patient is in agreement with this plan. Will admit to the hospitalist. Time: 19:31 Vital Signs Temperature 97.9 F 05/08/17 15:58 Pulse Rate 58 05/08/17 15:58 Respiratory Rate 20 05/08/17 15:58 Blood Pressure 199/113 05/08/17 15:58 O2 Sat by Pulse Oximetry 100 05/08/17 15:58 Temperature 97.9 F 05/12/17 06:49 Pulse Rate 60 05/12/17 06:49 Respiratory Rate 16 05/12/17 09:54 Blood Pressure 159/93 05/12/17 06:49 O2 Sat by Pulse Oximetry 99 05/12/17 09:54 Oxygen Delivery Oxygen Delivery Room Air Fall - MDM Narrative Medical decision making narrative: Patient was discussed with my attending physician who agrees with ED management and final disposition. They independently evaluated the patient. Please refer to their attestation to this encounter for additional information. This note was generated by [employer] voice recognition software and as a result grammatical or spelling errors may occur using this program. - Medical Records Medical records reviewed: Yes I reviewed the patient's medical records. - Lab Data Result diagrams: 05/10/17 04:46 05/10/17 04:46 - Radiology Data Radiology results reviewed: Yes I reviewed the patient's radiology results. Lumbar Spine X-Ray 05/08/17 16:02 IMPRESSION: 1. Mild wedge compression fracture of L3, new since July 2016, and likely acute given the history. 2. Osteopenia. D/ / Hebert Clifton MD / Hebert Clifton MD Interpreting Provider: Hebert Clifton MD Thoracic Spine X-Ray 05/08/17 16:02 IMPRESSION: There is a mild compression fracture of the superior endplate of T4 of indeterminate age. Thoracic MRI would be helpful in assessing for bone edema. D/ / Conor Fam MD / Conor Fam MD Interpreting Provider: Conor Fam MD Lumbar Spine CT 05/08/17 17:15 IMPRESSION: 1. Acute compression fracture involving the L3 superior endplate with approximately 25% loss of anterior height. 2. Bony demineralization consistent with osteoporosis given the above finding. 3. Acute minimally displaced fracture of the right L3 transverse process. 4. No acute findings in the thoracic spine. 5. Minimal thoracic spine and minimal to mild lumbar spine degenerative changes. 6. A few incidental findings as above for which no follow-up is recommended. RECOMMENDATIONS: Managing Incidental Thyroid Nodule Detected at CT or MRI or US 1. Further evaluation by thyroid Ultrasound recommended for these incidental nodules: Patient Age 35 years or more - Nodule 1.5 cm in size or greater 3. NO further imaging is recommended in the following scenarios -No f/u imaging is recommended for ITNs not meeting the above criteria. -No US or f/u recommended for ITNs without high risk features in pts. with limited life expectancy or significant co-morbidities, unless clinically warranted. Note: These recommendations do not apply to pts. w/ increased risk for thyroid cancer or pts. with symptomatic thyroid disease. Recommendations for f/u of Incidental Thyroid Nodules (ITN) found on CT, MR, NM and Extrathyroidal US are based upon the ACR white paper and Elliott 3-tiered system for managing ITNs: J Am Angelina Radiol. 2014;12(2): 143-50 D/ / Taye Carlos MD / Taye Carlos MD Interpreting Provider: Taye Carlos MD Thoracic Spine CT 05/08/17 17:15 IMPRESSION: 1. Acute compression fracture involving the L3 superior endplate with approximately 25% loss of anterior height. 2. Bony demineralization consistent with osteoporosis given the above finding. 3. Acute minimally displaced fracture of the right L3 transverse process. 4. No acute findings in the thoracic spine. 5. Minimal thoracic spine and minimal to mild lumbar spine degenerative changes. 6. A few incidental findings as above for which no follow-up is recommended. RECOMMENDATIONS: Managing Incidental Thyroid Nodule Detected at CT or MRI or US 1. Further evaluation by thyroid Ultrasound recommended for these incidental nodules: Patient Age 35 years or more - Nodule 1.5 cm in size or greater 3. NO further imaging is recommended in the following scenarios -No f/u imaging is recommended for ITNs not meeting the above criteria. -No US or f/u recommended for ITNs without high risk features in pts. with limited life expectancy or significant co-morbidities, unless clinically warranted. Note: These recommendations do not apply to pts. w/ increased risk for thyroid cancer or pts. with symptomatic thyroid disease. Recommendations for f/u of Incidental Thyroid Nodules (ITN) found on CT, MR, NM and Extrathyroidal US are based upon the ACR white paper and Elliott 3-tiered system for managing ITNs: J Am Angelina Radiol. 2015 Jul;12(2): 143-50 D/ / Taye Carlos MD / Taye Carlos MD Interpreting Provider: Taye Carlos MD Attestation Statement - Attestation Attestation: I examined this patient and my medical decision-making was reviewed with the Resident Physician. I agree with the documented findings, disposition and treatment plan as described except to the extent set forth below. Frail elderly female with spinal compression fx S/P fall, admitted for pain control and probably kyphoplasty. Neurologically intact.
[2017-05-08] MEDS ORDERED: *HR* Morphine 2 MG/ML SYRINGE IVP ONE ×2 (16:15→19:30)
[2017-05-08] MEDS ORDERED: Ondansetron 4 MG/2 ML VIAL IVP ONE (16:16)
--- NOTE | 2017-05-08 20:33 | Internal Med History&Physical ---
<Pasha Farris - Last Filed: 05/08/17 22:44> Date of Encounter: 05/08/17 Time of Encounter: 20:31 Assessment and Plan (1) Lumbar compression fracture Current visit: No Status: Acute Lumbar and thoracic XR with CT: - Demonstrated L3 compression fracture with associated non-displaced right transverse process fracture Orthopedic spine surgery was consulted and recommended kyphoplasty tomorrow Bed rest Pain control NPO after midnight Holding ASA and Plavix RCRI risk assessment shows moderate to high risk category DVT prop - Heparin 5000 units BID, giving first dose tonight and holding subsequent for surgery CBC, BMP, Coags ordered Qualifiers: Encounter type: initial encounter Lumbar vertebra fracture level: L3 Fracture type: closed Qualified Code(s): S32.030A - Wedge compression fracture of third lumbar vertebra, initial encounter for closed fracture (2) Diastolic congestive heart failure Current visit: No Status: Chronic ECHO 02/05/2017 - EF 55% - Mild LV diastolic dysfunction - No valvular or wall motion abnormalities Preserved ejection fraction Denies any PND but reports orthopnea No LE edema or rales on exam Taking ASA, statin, ACEi and BB No optimization at this time Qualifiers: Congestive heart failure chronicity: chronic Qualified Code(s): I50.32 - Chronic diastolic (congestive) heart failure (3) CAD (coronary artery disease) Current visit: No Status: Chronic History of prior PA with [facility] Currently on ASA, Statin, ACEi, BB Asymptomatic No optimization at this time Qualifiers: Coronary Disease-Associated Artery/Lesion type: [place] artery [place] vs. transplanted heart: [place] heart Associated angina: without angina Qualified Code(s): I25.10 - Atherosclerotic heart disease of [place] coronary artery without angina pectoris (4) HTN (hypertension) Current visit: No Status: Chronic BP 199/113 and now down to 136/74 Patient has a history of hypertensive urgency Restarting home meds - Lisinopril, Norvasc and Lopressor Titrate accordingly Qualifiers: Hypertension type: essential hypertension Qualified Code(s): I10 - Essential (primary) hypertension (5) COPD (chronic obstructive pulmonary disease) Current visit: No Status: Chronic On symbicort and ventolin. Smokes 0.5 PPD for 50 years. Continue home meds unchanged. Qualifiers: COPD type: emphysema Emphysema type: panlobular Qualified Code(s): J43.1 - Panlobular emphysema (6) HLD (hyperlipidemia) Current visit: No Status: Acute Continue home Statin therapy Qualifiers: Hyperlipidemia type: unspecified Qualified Code(s): E78.5 - Hyperlipidemia , unspecified (7) Depression Current visit: No Status: Acute Appears to be stable at this time. Will continue home dose of Zoloft and buproprion Qualifiers: Depression Type: unspecified Qualified Code(s): F32.9 - Major depressive disorder, single episode, unspecified (8) History of CVA (cerebrovascular accident) Current visit: No Status: Acute Reported CVA x5 in the past Residual deficits in LUE and LLE with muscle weakness only Recurrent falls Taking ASA, statin, plavix Uses walker for ambulation Had repeat scans showing stable infarcts (9) Insomnia Current visit: No Status: Acute Switched from Ambien to Belsomra. Will continue during inpatient stay. Qualifiers: Insomnia type: unspecified Qualified Code(s): G47.00 - Insomnia, unspecified (10) Psoriasis Current visit: No Status: Chronic Takes home injections of humira. Well controlled at this time. (11) Tobacco abuse Current visit: No Status: Chronic Smokes 0.5 PPD for 50 years. (12) Tobacco abuse counseling Current visit: No Status: Acute History of multiple attempts of cessation. Discussed different options and patient is reluctant to begin cessation process at this time. Internal Medicine - H&P: HPI Chief complaint: low back pain Admitted From: Home Plans for Post Hospital Care: Home History of present illness: Ms. Farris is a very pleasant 72 year old female with a past medical history of CHF, CAD, CVA x5, GERD, HLD, HTN, GBS (2008), Depression, Psoriasis and Insomnia who presents to the [facility] with a chief complaint of low back pain. She reports that around 1400 this afternoon, along with her home stereo equipment installer, they were doing their usual physical therapy with standing knee and ankle touches. Her home stereo equipment installer was in front of the patient without direct supervision, she fell backwards onto her buttocks and immediately felt 10 /10 low back pain that radiated bilateral to her legs. The pain was stabbing and constant in nature. She goes on to state that she has a history of recurrent falls but never experienced this type of pain. Her home stereo equipment installer helped her to the chair and she was brought via EMS to the ED. On arrival to the hospital, her vitals signs showed elevated BP but quickly dropped after morphine was administered. EKG unremarkable. Lumbar and thoracic XR as well as lumbar and thoracic CT were performed and demonstrated L3 compression fracture with associated non-displaced right transverse process fracture. Orthopedic spine surgery was consulted and recommended kyphoplasty tomorrow with the hospitalist service admitting. On evaluation, she explains that she has residual deficits of her LUE and LLE involving only muscle weakness that requires a walker for ambulation. 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 Pertinent family history involves all her five brothers passing away from PA and all her five sisters alive with CAD. Patient smokes 0.5 PPD for 50 years and denies any EtOH abuse. No illicit drugs. SHe lives alone and has home stereo equipment installer there five days per week. On EMR review, her last DEXA was 08/15/16 consistent with osteoporosis and last ECHO was 02/05/2017 showing EF 55% with mild LV diastolic dysfunction. No valvular or wall motion abnormalities. We will admit patient to [facility] for further workup and management. Past Med Surg Social Fam HX - Past Medical History Medical history: CHF, coronary artery disease, CVA, GERD, hyperlipidemia, hypertension, myocardial infarction, pulmonary embolus, seizures, other Psychiatric history: ADHD, depression - Past Surgical History Surgical History: appendectomy, cholecystectomy, hysterectomy, other (had PEG and trach in 2008 with the [facility], both have since been removed) - Social History Smoking Status: Current every day smoker Smokeless Tobacco Status: No Alcohol use: none Drug use: none - Family History Father Living Status: Hx Family Cardiac Disorders: Yes Mother Living Status: Hx Family Cardiac Disorders: Yes Internal Medicine - H&P: Meds Adalimumab [Humira Pen Crohn-Uc-Hs Starter] 40 mg SQ Q2W 04/20/15 [History] Albuterol Sulfate [Ventolin Hfa] 2 puff IH Q4H PRN 04/20/15 [History] Atorvastatin Calcium [Lipitor] 20 mg PO HS 04/20/15 [History] Budesonide/Formoterol 160/4.5 [Symbicort] 2 puff IH BIDR 04/20/15 [History] Ergocalciferol (VITAMIN D2) [Vitamin D2 (50,000 UNIT)] 50,000 unit PO SA [History] Gabapentin [Neurontin] 600 mg PO HS 04/20/15 [History] LevETIRAcetam [Keppra] 500 mg PO Q12H 04/20/15 [History] Multivitamin/Iron/Folic Acid [Centrum Complete Multivit Tab] 1 each PO DAILY [History] Pantoprazole Sodium [Protonix] 40 mg PO DAILY 04/20/15 [History] Sertraline [Zoloft] 100 mg PO DAILY 04/20/15 [History] Aspirin Enteric Coated [Aspirin EC] 81 mg PO DAILY #14 tablet. 04/21/15 [Rx] Clopidogrel [Plavix] 75 mg PO DAILY #14 tablet 04/21/15 [Rx] Ammonium Lactate 1 appl TP BID PRN 02/04/17 [History] Betamethasone Dipropionate 1 appl TP BID 02/04/17 [History] Bupropion HCl [Wellbutrin Xl] 300 mg PO QAM 02/04/17 [History] Ciclopirox 1 appl TP BID 02/04/17 [History] Gabapentin [Neurontin] 300 mg PO BID 02/04/17 [History] Magnesium 250 mg PO DAILY 02/04/17 [History] Polyethylene Glycol 3350 [MiraLAX] 17 gm PO DAILY 02/04/17 [History] Suvorexant [Belsomra] 20 mg PO HS PRN 02/04/17 [History] Lisinopril [Zestril] 40 mg PO DAILY #60 tab 02/05/17 [Rx] amLODIPine [Norvasc] 5 mg PO DAILY #30 tab 02/05/17 [Rx] Ibuprofen [Motrin] 800 mg PO TID PRN 05/08/17 [History] Metoprolol [Lopressor] 25 mg PO BID 05/08/17 [History] 3 Allergy/AdvReac Type Severity Reaction Status Date / Time hydrocodone [From [place]] Allergy Rash Verified 04/20/15 16:45 Influenza Virus Vaccines Allergy See Verified 04/20/15 16:45 Comments Iodinated Contrast- Oral and Allergy Anaphylaxis Verified 04/20/15 12:48 IV Dye [Iodinated Contrast Media - IV Dye] All Systems PM: A 10-system review of systems was performed and is negative for pertinent findings except as documented above in the HPI. - Constitutional Constitutional: no fever(s) - EENT Eyes: no change in vision - Cardiovascular Cardiovascular ROS IM: orthopnea, no chest pain, no dyspnea, no paroxysmal nocturnal dyspnea - Respiratory Respiratory: no cough - Gastrointestinal Gastrointestinal: no abdominal pain, no constipation, no diarrhea - Genitourinary Genitourinary: no dysuria - Musculoskeletal Musculoskeletal ROS IM: as per HPI - Integumentary Integumentary IM: no rash - Neurological Neurological ROS: as per HPI, frequent falls - Psychiatric Psychiatric: depression - Constitutional Vitals: Temp Pulse Resp BP Pulse Ox 97.9 F 93 20 178/88 94 05/08/17 15:58 05/08/17 19:57 05/08/17 20:18 05/08/17 20:18 05/08/17 19:57 General appearance: Present: cooperative, A&O X 3, answers questions appropriately - Head Head exam: Present: atraumatic, normocephalic - Eye Eye exam: Present: EOMI, conjuntiva pink, sclera anicteric - ENT ENT exam: Present: mucous membranes moist, normal exam - Neck Neck exam general surgery: Present: supple, trachea midline - Respiratory Respiratory exam: Present: CTAB. Absent: rales, rhonchi, wheezes - Cardiovascular Cardiovascular exam: Present: RRR, +S1, +S2 - GI/Abdominal GI/Abdominal exam: Present: normal bowel sounds, soft. Absent: tenderness - Rectal Rectal exam: Present: deferred - Extremities Exam Additional comments: LUE and LLE weakness with full motor function - residual from CVA - Back Exam Back exam: Present: muscle spasm (lumbar L>R), paraspinal tenderness, tenderness , vertebral tenderness (lumbar) - Neurological Exam Neurological exam: Present: alert, oriented X3. Absent: strengths equal and symetr throughout (decreased muscle strength in LLE and LUE), speech deficit - Psychiatric Psychiatric exam: Present: normal affect, normal mood - Skin Skin exam: Present: dry, warm Internal Med - H&P Results - Labs CBC & Chem 7: 05/08/17 21:55 05/08/17 21:55 <Misael-Omkar Luu - Last Filed: 05/08/17 23:33> Date of Encounter: 05/08/17 Internal Medicine - H&P: HPI History of present illness: Ms. Farris is a 72 year old female All Systems PM: A 10-system review of systems was performed and is negative for pertinent findings except as documented above in the HPI. - Constitutional Vitals: Temp Pulse Resp BP Pulse Ox 97.7 F 57 18 136/74 91 05/08/17 21:21 05/08/17 21:21 05/08/17 23:03 05/08/17 21:21 05/08/17 23:03 Internal Med - H&P Results - Labs CBC & Chem 7: 05/08/17 21:55 05/08/17 21:55 Labs: Short CBC 05/08/17 Range/Units 21:55 WBC 12.3 H (4.3-11.1) K/mcL Hgb 13.3 (11.5-15.4) g/dL Hct 39.2 (35.3-44.9) % Plt Count 197 (140-400) K/mcL Neutrophils # 6.5 (1.6-8.9) K/mcL BMP 05/08/17 21:55 Sodium 136 Potassium 4.1 Chloride 104 Carbon Dioxide 24 BUN 8 Creatinine 0.84 Glucose 100 H Calcium 9.4 - Attending Attestation I examined this patient and my medical decision-making was reviewed with the Resident Physician. I agree with the documented findings, disposition and treatment plan as described except to the extent set forth below. I have seen and examined the patient. Patient is a 72-year-old female with past medical history of diastolic CHF, coronary artery disease, hypertension, COPD, hyperlipidemia, history of CVA and depression. The patient presents to the ED with complaint of low back pain. Patient states that at around 2 PM this afternoon she was undergoing physical therapy, and she fell backwards onto her buttocks while she was doing knee and ankle touches. Immediately complained of severe low back pain. Lumbar CT shows acute L3 compression fracture. Orthopedics has been consulted from the ED. Patient will probably undergo kyphoplasty tomorrow. Patient has been explained about her condition and plan of care in detail. She understood and agreed. No unanswered questions. CODE STATUS full code.
[2017-05-08] MEDS ORDERED: Ondansetron 4 MG/2 ML VIAL IVP PRN (21:20)
[2017-05-08] MEDS ORDERED: Naloxone 0.4 MG/ML INJ IVP PRN (21:20)
[2017-05-08 22:03] LABS: Basophils % 0.3 %; Eosinophils # 0.3 K/mcL (0.0-0.6); Eosinophils % 2.1 %; Hematocrit 39.2 % (35.3-44.9); Hemoglobin 13.3 g/dL (11.5-15.4); Immature Granulocytes % 0.3 % (0-4); Lymphocytes # 4.3 K/mcL (0.6-4.6); Lymphocytes % 34.7 %; Mean Corpuscular HGB Conc 33.9 g/dL (31.6-35.5); Mean Corpuscular Hemoglobin 30.5 pg (28.0-33.3); Mean Corpuscular Volume 89.9 fL (83.0-100.0); Monocytes # 1.2 K/mcL (0.0-1.3); Neutrophils # 6.5 K/mcL (1.6-8.9); Platelet Count 197 K/mcL (140-400); Red Blood Count 4.36 M/mcL (3.82-4.97); Red Cell Distribution Width 11.6 % (11.5-14.5); Segmented Neutrophils % 52.6 %
[2017-05-08 22:14] LABS: BUN/Creatinine Ratio 10 (6-26); Blood Urea Nitrogen 8 mg/dL (7-20); Calcium 9.4 mg/dL (8.6-10.8); Carbon Dioxide 24 mEq/L (19-29); Chloride 104 mEq/L (98-109); Glucose 100 mg/dL (70-99); Osmolality,Calculated 280 (280-300); Potassium 4.1 mEq/L (3.5-4.5); Sodium 136 mEq/L (136-145); eGFR For African Americans > 60 (> 60); eGFR For Non-African Americans > 60 (> 60)
[2017-05-08 22:20] LABS: INR 1.1; Prothrombin Time 11.3 Seconds (9.4-12.1)
[2017-05-08 22:22] LABS: Activated Partial Thrombo Time 28.9 Seconds (26.0-36.0)
[2017-05-08] MEDS: amLODIPine 5 MG TABLET PO SCH (22:36)
[2017-05-08] MEDS: *HR* Heparin 5,000 UNIT/ML VIAL SQ SCH (22:36)
[2017-05-08] MEDS: Lisinopril 20 MG TABLET PO SCH (22:36)
[2017-05-08] MEDS: *HR* Morphine 2 MG/ML SYRINGE IVP PRN (22:40)
[2017-05-08] MEDS: Budesonide/Formoterol 160/4.5 MDI IH SCH (23:03)
[2017-05-08] MEDS ORDERED: *HR* LORazepam 0.5 MG TABLET PO ONE (23:22)
[2017-05-08] MEDS: Ipratropium/Albuterol Neb 3 ML IH SCH (23:26)
[2017-05-08] MEDS: Nicotine 21 MG PATCH.TD24 TD SCH (23:49)
[2017-05-09] MEDS: SUVOREXANT 20 MG PO PRN ×2 (00:43→21:18)
[2017-05-09] MEDS: Acetaminophen 325 MG TABLET PO PRN ×3 (02:42→16:18)
[2017-05-09] MEDS: Ipratropium/Albuterol Neb 3 ML IH SCH ×5 (03:45→22:37)
[2017-05-09] MEDS: *HR* Morphine 2 MG/ML SYRINGE IVP PRN ×4 (06:10→22:49)
[2017-05-09] MEDS: *HR* Heparin 5,000 UNIT/ML VIAL SQ SCH ×2 (08:26→16:18)
[2017-05-09] MEDS: BuPROPion XL (24 HR) 150 MG TABLET PO SCH (08:34)
[2017-05-09] MEDS: Gabapentin 300 MG CAPSULE PO SCH ×2 (08:35→20:33)
[2017-05-09] MEDS: Lisinopril 20 MG TABLET PO SCH (08:35)
[2017-05-09] MEDS: amLODIPine 5 MG TABLET PO SCH (08:35)
[2017-05-09] MEDS: Nicotine 21 MG PATCH.TD24 TD SCH (08:35)
[2017-05-09] MEDS: Budesonide/Formoterol 160/4.5 MDI IH SCH ×2 (10:31→22:37)
--- NOTE | 2017-05-09 11:50 | Internal Med Progress Note ---
Date of Encounter: 05/09/17 Time of Encounter: 11:45 - Assessment and plan (1) Lumbar compression fracture Current Visit: No Status: Acute Assessment and plan: Keep NPO. pain control. plans for ortho OR today. Will monitor. She is hemodynamcially stable with no signs of exacerbation of her comorbidities. She may proceed with no further work up. ASA/plavix on hold and there is a risk of bleeding Qualifiers: Encounter type: initial encounter Lumbar vertebra fracture level: L3 Fracture type: closed Qualified Code(s): S32.030A - Wedge compression fracture of third lumbar vertebra, initial encounter for closed fracture (2) Hypertensive urgency Current Visit: No Status: Acute Assessment and plan: resolved. may have been due to pain. Pain is better controlled. c/w janna BP meds (3) HTN (hypertension) Current Visit: No Status: Chronic Assessment and plan: stable on norvasc/lisinopril/metoprolole Qualifiers: Hypertension type: essential hypertension Qualified Code(s): I10 - Essential (primary) hypertension (4) History of CVA (cerebrovascular accident) Current Visit: No Status: Acute Assessment and plan: On ASA/plavix/statin. Antiplatelets on hold in anticipation of OR (5) GERD (gastroesophageal reflux disease) Current Visit: No Status: Acute Assessment and plan: c/w PPI Qualifiers: Esophagitis presence: without esophagitis Qualified Code(s): K21.9 - Gastro -esophageal reflux disease without esophagitis (6) HLD (hyperlipidemia) Current Visit: No Status: Acute Assessment and plan: c/w statin Qualifiers: Hyperlipidemia type: unspecified Qualified Code(s): E78.5 - Hyperlipidemia , unspecified (7) Vitamin D deficiency Current Visit: Yes Status: Acute Assessment and plan: c/w Vit D supplements. check levels tomorrow morning with labs (8) CAD (coronary artery disease) Current Visit: No Status: Chronic Assessment and plan: c/w cardiac meds. She is on proper meds with ASA/plavix/statin/BB Qualifiers: Coronary Disease-Associated Artery/Lesion type: [place] artery [place] vs. transplanted heart: [place] heart Associated angina: without angina Qualified Code(s): I25.10 - Atherosclerotic heart disease of [place] coronary artery without angina pectoris (9) DVT prophylaxis Current Visit: No Status: Acute Assessment and plan: heparin SQ - Subjective Interval history: Patient seen and examined. Admitted with back pain after a mechanical fall and found to have L3 fracture with plans for OR today. - Constitutional Vitals: Temp Pulse Resp BP Pulse Ox 98.1 F 66 16 130/61 93 05/09/17 07:14 05/09/17 07:14 05/09/17 10:33 05/09/17 07:14 05/09/17 10:33 General appearance: Present: cooperative, A&O X 3, answers questions appropriately Exam: GEN: NAD CVS: RRR. S1, S2, No m/r/g RESP: CTAB ABD: Soft, NT, ND, +BS EXT: No edema. 2+ DP, No rashes NEURO: 3/5 strength in LUE and LLE which is chronic. otherwise nonfocal Internal Medicine: Result - Labs CBC & Chem 7: 05/08/17 21:55 05/08/17 21:55 Labs: Short CBC 05/08/17 Range/Units 21:55 WBC 12.3 H (4.3-11.1) K/mcL Hgb 13.3 (11.5-15.4) g/dL Hct 39.2 (35.3-44.9) % Plt Count 197 (140-400) K/mcL Neutrophils # 6.5 (1.6-8.9) K/mcL BMP 05/08/17 21:55 Sodium 136 Potassium 4.1 Chloride 104 Carbon Dioxide 24 BUN 8 Creatinine 0.84 Glucose 100 H Calcium 9.4 - ABG Interpretation ABG results: PT/INR, D-dimer PT 11.3 Seconds (9.4-12.1) 05/08/17 21:55 Consult Discharge Plan - Plan Referrals: Katelin Luther MD [Primary Care Provider] -
--- NOTE | 2017-05-09 13:39 | Pain Management Consultation ---
Date of Encounter: 05/09/17 Time of Encounter: 16:42 Assessment and Plan (1) Compression fracture Current Visit: Yes Status: Acute The fracture is a/w with a right transverse process fracture at L3. The compression is about 25% at the superior endplate of L3. 1. the patient should have a functional evaluation from PT to determine if she has new pain in her back that prevents her from normal function. As of now, this question is unanswered because the patient has been sedentary in bed since admission via the emergency department. 2. I ordered a back brace to be placed on the patient to facilitate her activity out of bed. 3. Advise that IV when necessary pain medication be discontinued and the patient should be treated with oral when necessary pain medication. Recommend oxycodone 5 mg by mouth when necessary every 4-6 hours. 4. The patient should follow up with me as an outpatient on Friday, an appointment has been made for that. 5. She will either need kyphoplasty repair or not. The deciding factor will ultimately be her function over the next 1-3 days. The assessment and plan as outlined above was discussed with the patient and/or family members who expressed understanding and agreement. All questions were answered. History of Present Illness Chief complaint: back pain HPI: Ms. Farris is a 72 year old female suffering with a 1-2 day history of acute on chronic low back pain after a fall at home. The patient was trying to exercise when she fell backward and landed on a piece of furniture which causes her to have worsening pain in her back for the past day. She was seen in the emergency department and then admitted to the hospital. The patient denies pain radiating into her upper back or the front of her legs. She does describe some pain in the back of her thighs that is aching in nature. She does have the pain in her back is a sharp stabbing sensation that is located directly in the middle for back. Pain score now is 10/10. Past Med Surg Social Fam HX - Past Medical History Medical history: CHF, coronary artery disease, CVA, GERD, hyperlipidemia, hypertension, myocardial infarction, pulmonary embolus, seizures, other Psychiatric history: ADHD, depression - Past Surgical History Surgical History: appendectomy, cholecystectomy, hysterectomy, other (had PEG and trach in 2008 with the [place], both have since been removed) - Social History Smoking Status: Current every day smoker Packs per day: 1/2 Smokeless Tobacco Status: No Alcohol use: none Drug use: none - Family History Father History Unknown: Yes Living Status: Hx Family Cardiac Disorders: Yes Mother History Unknown: Yes Living Status: Hx Family Cardiac Disorders: Yes Medications and Allergies Adalimumab [Humira Pen Crohn-Uc-Hs Starter] 40 mg SQ Q2W 04/20/15 [History] Albuterol Sulfate [Ventolin Hfa] 2 puff IH Q4H PRN 04/20/15 [History] Atorvastatin Calcium [Lipitor] 20 mg PO HS 04/20/15 [History] Budesonide/Formoterol 160/4.5 [Symbicort] 2 puff IH BIDR 04/20/15 [History] Ergocalciferol (VITAMIN D2) [Vitamin D2 (50,000 UNIT)] 50,000 unit PO SA [History] Gabapentin [Neurontin] 600 mg PO HS 04/20/15 [History] LevETIRAcetam [Keppra] 500 mg PO Q12H 04/20/15 [History] Multivitamin/Iron/Folic Acid [Centrum Complete Multivit Tab] 1 each PO DAILY [History] Pantoprazole Sodium [Protonix] 40 mg PO DAILY 04/20/15 [History] Sertraline [Zoloft] 100 mg PO DAILY 04/20/15 [History] Aspirin Enteric Coated [Aspirin EC] 81 mg PO DAILY #14 tablet. 04/21/15 [Rx] Clopidogrel [Plavix] 75 mg PO DAILY #14 tablet 04/21/15 [Rx] Ammonium Lactate 1 appl TP BID PRN 02/04/17 [History] Betamethasone Dipropionate 1 appl TP BID 02/04/17 [History] Bupropion HCl [Wellbutrin Xl] 300 mg PO QAM 02/04/17 [History] Ciclopirox 1 appl TP BID 02/04/17 [History] Gabapentin [Neurontin] 300 mg PO BID 02/04/17 [History] Magnesium 250 mg PO DAILY 02/04/17 [History] Polyethylene Glycol 3350 [MiraLAX] 17 gm PO DAILY 02/04/17 [History] Suvorexant [Belsomra] 20 mg PO HS PRN 02/04/17 [History] Lisinopril [Zestril] 40 mg PO DAILY #60 tab 02/05/17 [Rx] amLODIPine [Norvasc] 5 mg PO DAILY #30 tab 02/05/17 [Rx] Ibuprofen [Motrin] 800 mg PO TID PRN 05/08/17 [History] Metoprolol [Lopressor] 25 mg PO BID 05/08/17 [History] 3 Allergy/AdvReac Type Severity Reaction Status Date / Time hydrocodone [From [place]] Allergy Rash Verified 04/20/15 16:45 Influenza Virus Vaccines Allergy See Verified 04/20/15 16:45 Comments Iodinated Contrast- Oral and Allergy Anaphylaxis Verified 04/20/15 12:48 IV Dye [Iodinated Contrast Media - IV Dye] Review of Systems - Constitutional Constitutional ROS IM: no photophobia, no phonophobia, no daytime sleepiness, no fever(s), no stops breathing during sleep - EENT Nose, mouth and throat: no headache(s), no neck pain, no neck trauma - Cardiovascular Cardiovascular ROS: no chest pain, no leg edema, no lightheadedness - Respiratory Respiratory: no pain on inspiration, no pain with cough - Gastrointestinal Gastrointestinal: no abdominal pain, no constipation, no diarrhea, no heartburn - Genitourinary Genitourinary ROS: no difficulty urinating, no flank pain, no urinary hesitancy - Musculoskeletal Musculoskeletal ROS: no muscle weakness, no numbness, no radiating pain into limb, no tingling - Integumentary Integumentary: no erythema, no lesions, no swelling - Neurological Neurological ROS: no abnormal gait, no behavioral changes, no focal weakness, no radicular pain - Psychiatric Psychiatric general: no anxiety, no confusion, no depression - Hematologic/Lymphatic Hematologic/Lymphatic pediatric: no easy bleeding, no easy bruising Physical Exam Initial Vital Signs Temp Pulse Resp BP Pulse Ox 97.9 F 58 20 199/113 100 05/08/17 15:58 05/08/17 15:58 05/08/17 15:58 05/08/17 15:58 05/08/17 15:58 - Additional Findings EYES:: pupils equal and round, no myosis. SKIN:: no areas of echymoses or petechiae CARDIOVASCULAR:: regular rate and rhythm, no murmurs PULMONARY:: lung briones clear to auscultation bilaterally. Quiet, normal respiratory pattern. GASTROINTESTINAL:: active bowel sounds. MUSCULOSKELETAL GAIT:: antalgic. INSPECTION:: no surgical scarring in lumbar spine PALPATION:: spinous process tenderness at mid lumbar neuraxis ROM:: Active flexion and extension are reduced in the lumbar area. Active Rotation is reduced in the lumbar area. STRENGTH:: RIGHT hip flexors: 5/5 :: LEFT hip flexors: 5/5 RIGHT hip adduction 5/5 :: LEFT hip adduction 5/5 RIGHT hip abduction 5/5 :: LEFT hip abduction 5/5 RIGHT knee extension 5/5 :: LEFT knee extension 5/5 RIGHT knee flexion 5/5 :: LEFT knee flexion 5/5 RIGHT ankle dorsiflexion 5/5 :: LEFT ankle dorsiflexion 5/5 RIGHT ankle plantarflexion 5/5 :: LEFT ankle plantarflexion 5/5 STRAIGHT LEG RAISE:: LLE is negative at 100 degrees. RLE is negative at 100 degrees. NEUROLOGIC SENSATION:: hypesthesia is not noted in lower extremity dermatomes. SIGNS OF NEUROVASCULAR COMPRESSION Clonus: none found bilateral with passive ROM at ankle joint Spasticity:: none Atrophy:: not present in UE or LE musculature Fasciculation:: not present in UE or LE musculature PSYCHIATRIC:: ORIENTATION:: awake and alert. INSIGHT:: good awareness of illness. AFFECT:: pleasant. Radiology Images Viewed By Me:: 05/08/[address] scan shows an acute L3 compression fracture with a superior endplate compression deformity of about 25% I have reviewed and agree with information documented in the scribed documentation, ROS, patient medications, allergies, medical history, surgical history, social history, and family history. Results - Labs 05/08/17 21:55 05/08/17 21:55 Abnormal lab results WBC 12.3 K/mcL (4.3-11.1) H 05/08/17 21:55 Glucose 100 mg/dL (70-99) H 05/08/17 21:55 B-Natriuretic Peptide 261 pg/mL (0-100) H 05/08/17 21:55 Diabetes panel 05/08/17 Range/Units 21:55 Sodium 136 (136-145) mEq/L Potassium 4.1 (3.5-4.5) mEq/L Chloride 104 (98-109) mEq/L Carbon Dioxide 24 (19-29) mEq/L BUN 8 (7-20) mg/dL Creatinine 0.84 (0.57-1.11) mg/dL Glucose 100 H (70-99) mg/dL Calcium 9.4 (8.6-10.8) mg/dL Calcium panel 05/08/17 Range/Units 21:55 Calcium 9.4 (8.6-10.8) mg/dL Pituitary panel 05/08/17 Range/Units 21:55 Sodium 136 (136-145) mEq/L Potassium 4.1 (3.5-4.5) mEq/L Chloride 104 (98-109) mEq/L Carbon Dioxide 24 (19-29) mEq/L BUN 8 (7-20) mg/dL Creatinine 0.84 (0.57-1.11) mg/dL Glucose 100 H (70-99) mg/dL Calcium 9.4 (8.6-10.8) mg/dL Adrenal panel 05/08/17 Range/Units 21:55 Sodium 136 (136-145) mEq/L Potassium 4.1 (3.5-4.5) mEq/L Chloride 104 (98-109) mEq/L Carbon Dioxide 24 (19-29) mEq/L BUN 8 (7-20) mg/dL Creatinine 0.84 (0.57-1.11) mg/dL Glucose 100 H (70-99) mg/dL Calcium 9.4 (8.6-10.8) mg/dL All other labs normal. Consult Discharge Plan - Plan Referrals: Katelin Luther MD [Primary Care Provider] -
[2017-05-09] MEDS ORDERED: ALPRAZolam 0.5 MG TABLET PO ONE (15:50)
[2017-05-10] MEDS: Ipratropium/Albuterol Neb 3 ML IH SCH ×4 (04:11→22:47)
[2017-05-10] MEDS: *HR* Heparin 5,000 UNIT/ML VIAL SQ SCH ×2 (04:38→16:49)
[2017-05-10] MEDS: *HR* Morphine 2 MG/ML SYRINGE IVP PRN (04:38)
[2017-05-10 05:14] LABS: Basophils % 0.3 %; Eosinophils # 0.2 K/mcL (0.0-0.6); Eosinophils % 2.3 %; Hematocrit 39.2 % (35.3-44.9); Hemoglobin 13.2 g/dL (11.5-15.4); Immature Granulocytes % 0.2 % (0-4); Lymphocytes # 3.5 K/mcL (0.6-4.6); Lymphocytes % 38.2 %; Mean Corpuscular HGB Conc 33.7 g/dL (31.6-35.5); Mean Corpuscular Hemoglobin 30.5 pg (28.0-33.3); Mean Corpuscular Volume 90.5 fL (83.0-100.0); Mean Platelet Volume 11.2 fL (9.4-12.4); Monocytes # 0.7 K/mcL (0.0-1.3); Monocytes % 7.1 %; Neutrophils # 4.8 K/mcL (1.6-8.9); Platelet Count 190 K/mcL (140-400); Red Blood Count 4.33 M/mcL (3.82-4.97); Red Cell Distribution Width 11.7 % (11.5-14.5); Segmented Neutrophils % 51.9 %
[2017-05-10 05:36] LABS: BUN/Creatinine Ratio 11 (6-26); Blood Urea Nitrogen 9 mg/dL (7-20); Calcium 9.4 mg/dL (8.6-10.8); Carbon Dioxide 26 mEq/L (19-29); Chloride 103 mEq/L (98-109); Glucose 141 mg/dL (70-99); Osmolality,Calculated 285 (280-300); Potassium 4.3 mEq/L (3.5-4.5); Sodium 137 mEq/L (136-145); eGFR For African Americans > 60 (> 60); eGFR For Non-African Americans > 60 (> 60)
[2017-05-10] MEDS: Nicotine 21 MG PATCH.TD24 TD SCH (10:05)
[2017-05-10] MEDS: Acetaminophen 325 MG TABLET PO PRN (10:06)
[2017-05-10] MEDS: Gabapentin 300 MG CAPSULE PO SCH ×2 (10:06→21:33)
[2017-05-10] MEDS: Lisinopril 20 MG TABLET PO SCH (10:06)
[2017-05-10] MEDS: BuPROPion XL (24 HR) 150 MG TABLET PO SCH (10:06)
[2017-05-10] MEDS: amLODIPine 5 MG TABLET PO SCH (10:07)
[2017-05-10] MEDS: *HR* OxyCODONE/APAP 5/325 TABLET PO PRN ×3 (10:40→21:33)
[2017-05-10] MEDS: Budesonide/Formoterol 160/4.5 MDI IH SCH ×2 (11:42→22:47)
--- NOTE | 2017-05-10 12:52 | Internal Med Progress Note ---
Date of Encounter: 05/10/17 Time of Encounter: 10:30 - Assessment and plan (1) Lumbar compression fracture Current Visit: No Status: Acute Assessment and plan: Seen by orthopedics. Appreciate their help. She is to be seen by PT and OT. Recommendations for surgery will be depending on pain control over the next couple days. I have switched her to oral pain meds. I have talked to her nurse and advised her to use the pain meds orally as much as possible and try to avoid IV medications. Qualifiers: Encounter type: initial encounter Lumbar vertebra fracture level: L3 Fracture type: closed Qualified Code(s): S32.030A - Wedge compression fracture of third lumbar vertebra, initial encounter for closed fracture (2) Hypertensive urgency Current Visit: No Status: Acute Assessment and plan: c/w janna BP meds. resolved (3) HTN (hypertension) Current Visit: No Status: Chronic Assessment and plan: stable on norvasc/lisinopril/metoprolol Qualifiers: Hypertension type: essential hypertension Qualified Code(s): I10 - Essential (primary) hypertension (4) History of CVA (cerebrovascular accident) Current Visit: No Status: Acute Assessment and plan: On ASA/plavix/statin. Antiplatelets on hold in case of any surgeries. (5) GERD (gastroesophageal reflux disease) Current Visit: No Status: Acute Assessment and plan: c/w PPI Qualifiers: Esophagitis presence: without esophagitis Qualified Code(s): K21.9 - Gastro -esophageal reflux disease without esophagitis (6) HLD (hyperlipidemia) Current Visit: No Status: Acute Assessment and plan: c/w statin Qualifiers: Hyperlipidemia type: unspecified Qualified Code(s): E78.5 - Hyperlipidemia , unspecified (7) Vitamin D deficiency Current Visit: Yes Status: Acute Assessment and plan: c/w Vit D supplements. (8) CAD (coronary artery disease) Current Visit: No Status: Chronic Assessment and plan: c/w cardiac meds. She is on proper meds with ASA/plavix/statin/BB Qualifiers: Coronary Disease-Associated Artery/Lesion type: [place] artery [place] vs. transplanted heart: [place] heart Associated angina: without angina Qualified Code(s): I25.10 - Atherosclerotic heart disease of [place] coronary artery without angina pectoris (9) DVT prophylaxis Current Visit: No Status: Acute Assessment and plan: heparin SQ - Subjective Interval history: Patient seen and examined. No acute events. Her pain is well-controlled. She has a brace on and she is able to ambulate with no issues this morning. She was seen by orthopedics and no plan for OR at the moment. - Constitutional Vitals: Temp Pulse Resp BP Pulse Ox 98.4 F 61 16 132/77 99 05/10/17 11:47 05/10/17 11:47 05/10/17 11:47 05/10/17 11:47 05/10/17 11:47 General appearance: Present: cooperative, A&O X 3, answers questions appropriately Exam: GEN: NAD CVS: RRR. S1, S2, No m/r/g RESP: CTAB ABD: Soft, NT, ND, +BS EXT: No edema. 2+ DP, No rashes NEURO: 3/5 strength in LUE and LLE which is chronic. otherwise nonfocal Internal Medicine: Result - Labs CBC & Chem 7: 05/10/17 04:46 05/10/17 04:46 Labs: Short CBC 05/10/17 Range/Units 04:46 WBC 9.3 (4.3-11.1) K/mcL Hgb 13.2 (11.5-15.4) g/dL Hct 39.2 (35.3-44.9) % Plt Count 190 (140-400) K/mcL Neutrophils # 4.8 (1.6-8.9) K/mcL BMP 05/10/17 04:46 Sodium 137 Potassium 4.3 Chloride 103 Carbon Dioxide 26 BUN 9 Creatinine 0.82 Glucose 141 H Calcium 9.4 - ABG Interpretation ABG results: PT/INR, D-dimer PT 11.3 Seconds (9.4-12.1) 05/08/17 21:55 Consult Discharge Plan - Plan Referrals: Katelin Luther MD [Primary Care Provider] -
--- NOTE | 2017-05-10 13:55 | Electrocardiograph Report ---
[place] [id number] Test Date: 2017-05-08 Pat Name: Flora Farris Department: 114 Room: [facility] Gender: F Helmet Hat Brim Cutter: [id number] : 1945 Requested By: Rosio Mckeon Order Number: [id number] Reading MD: Shaniqua Magana Measurements Intervals [place] Rate: 57 P: 39 SD: 132 QRS: -20 QRSD: 106 T: 131 QT: 400 QTc: 394 Interpretive Statements SINUS BRADYCARDIA LEFT VENTRICULAR HYPERTROPHY AND ST-T CHANGE Electronically Signed On 05-10-2017 13:53:37 EST by Shaniqua Magana
[2017-05-10] MEDS: SUVOREXANT 20 MG PO PRN (21:35)
[2017-05-11] MEDS: *HR* OxyCODONE/APAP 5/325 TABLET PO PRN ×4 (04:45→22:08)
[2017-05-11] MEDS: *HR* Heparin 5,000 UNIT/ML VIAL SQ SCH ×2 (04:47→17:13)
[2017-05-11] MEDS: Ipratropium/Albuterol Neb 3 ML IH SCH ×4 (05:03→22:49)
[2017-05-11] MEDS: Gabapentin 300 MG CAPSULE PO SCH ×2 (08:24→20:40)
[2017-05-11] MEDS: BuPROPion XL (24 HR) 150 MG TABLET PO SCH (08:24)
[2017-05-11] MEDS: amLODIPine 5 MG TABLET PO SCH (08:24)
[2017-05-11] MEDS: Nicotine 21 MG PATCH.TD24 TD SCH (08:25)
[2017-05-11] MEDS: Lisinopril 20 MG TABLET PO SCH (08:25)
[2017-05-11] MEDS: Budesonide/Formoterol 160/4.5 MDI IH SCH ×2 (11:03→22:49)
--- NOTE | 2017-05-11 11:21 | Internal Med Progress Note ---
Date of Encounter: 05/11/17 Time of Encounter: 09:00 - Assessment and plan (1) Lumbar compression fracture Current Visit: No Status: Acute Assessment and plan: Seen by orthopedics. Appreciate their help. She is to be seen by PT and OT. She is recommended inpatient rehabilitation. I will contact orthopedics tomorrow as we work on placement to see if he wanted me to keep in case any surgical plans. We will continue with pain control with oral narcotics for now. We will avoid IV pain meds. Qualifiers: Encounter type: initial encounter Lumbar vertebra fracture level: L3 Fracture type: closed Qualified Code(s): S32.030A - Wedge compression fracture of third lumbar vertebra, initial encounter for closed fracture (2) Hypertensive urgency Current Visit: No Status: Acute Assessment and plan: c/w home BP meds. resolved (3) HTN (hypertension) Current Visit: No Status: Chronic Assessment and plan: stable on norvasc/lisinopril/metoprolol Qualifiers: Hypertension type: essential hypertension Qualified Code(s): I10 - Essential (primary) hypertension (4) History of CVA (cerebrovascular accident) Current Visit: No Status: Acute Assessment and plan: On ASA/plavix/statin. Antiplatelets on hold in case of any surgeries. (5) GERD (gastroesophageal reflux disease) Current Visit: No Status: Acute Assessment and plan: c/w PPI Qualifiers: Esophagitis presence: without esophagitis Qualified Code(s): K21.9 - Gastro -esophageal reflux disease without esophagitis (6) HLD (hyperlipidemia) Current Visit: No Status: Acute Assessment and plan: c/w statin Qualifiers: Hyperlipidemia type: unspecified Qualified Code(s): E78.5 - Hyperlipidemia , unspecified (7) Vitamin D deficiency Current Visit: Yes Status: Acute Assessment and plan: c/w Vit D supplements. (8) CAD (coronary artery disease) Current Visit: No Status: Chronic Assessment and plan: c/w cardiac meds. She is on proper meds with ASA/plavix/statin/BB Qualifiers: Coronary Disease-Associated Artery/Lesion type: [place] artery [place] vs. transplanted heart: [place] heart Associated angina: without angina Qualified Code(s): I25.10 - Atherosclerotic heart disease of [place] coronary artery without angina pectoris (9) DVT prophylaxis Current Visit: No Status: Acute Assessment and plan: heparin SQ - Subjective Interval history: Patient seen and examined. No acute events. She has used 4 pills of [place] since the last 24 hours. Her pain seems to be well-controlled. Physical therapy has recommended rehabilitation on her. She has a brace on and she is able to ambulate with no issues this morning. - Constitutional Vitals: Temp Pulse Resp BP Pulse Ox 98.2 F 69 17 144/81 95 05/11/17 06:54 05/11/17 06:54 05/11/17 11:03 05/11/17 06:54 05/11/17 11:03 General appearance: Present: cooperative, A&O X 3, answers questions appropriately Exam: GEN: NAD CVS: RRR. S1, S2, No m/r/g RESP: CTAB ABD: Soft, NT, ND, +BS EXT: No edema. 2+ DP, No rashes. Brace noted around midabdomen and back NEURO: 3/5 strength in LUE and LLE which is chronic. otherwise nonfocal Internal Medicine: Result - Labs CBC & Chem 7: 05/10/17 04:46 05/10/17 04:46 - ABG Interpretation ABG results: PT/INR, D-dimer PT 11.3 Seconds (9.4-12.1) 05/08/17 21:55 - VTE Documentation of Mechanical Device: Venous foot pump, device Consult Discharge Plan - Plan Referrals: Katelin Luther MD [Primary Care Provider] -
[2017-05-11] MEDS ORDERED: MOM Conc 10 ML UD.LIQ PO ONE (12:47)
[2017-05-11] MEDS: SUVOREXANT 20 MG PO PRN (22:13)
[2017-05-12] MEDS: Ipratropium/Albuterol Neb 3 ML IH SCH ×2 (03:43→09:53)
[2017-05-12] MEDS: *HR* OxyCODONE/APAP 5/325 TABLET PO PRN ×2 (04:50→10:07)
[2017-05-12] MEDS: *HR* Heparin 5,000 UNIT/ML VIAL SQ SCH (05:05)
[2017-05-12 06:50] VITALS: BP 159/93
[2017-05-12] MEDS: Lisinopril 20 MG TABLET PO SCH (07:33)
[2017-05-12] MEDS: Gabapentin 300 MG CAPSULE PO SCH (07:33)
[2017-05-12] MEDS: Nicotine 21 MG PATCH.TD24 TD SCH (07:33)
[2017-05-12] MEDS: BuPROPion XL (24 HR) 150 MG TABLET PO SCH (07:33)
[2017-05-12] MEDS: amLODIPine 5 MG TABLET PO SCH (07:33)
--- NOTE | 2017-05-12 08:55 | Pain Management Consultation ---
Date of Encounter: 05/12/17 Time of Encounter: 08:50 Assessment and Plan (1) Compression fracture Current Visit: Yes Status: Acute The patient is doing very well with conservative care thus far. 1. She is safe to be released to inpatient rehabilitation for physical therapy and rehabilitation. 2. Continue oral opioids and back bracing. 3. She has been scheduled with me as an outpatient in our clinic so that her progress can be monitored. Appointment has been made for next Friday. we will monitor her progress. If she clinically takes a step backward, we can schedule kyphoplasty repair of the L3 compression fracture, but her function is well enough now that this option is not necessary. The assessment and plan as outlined above was discussed with the patient and/or family members who expressed understanding and agreement. All questions were answered. History of Present Illness Chief complaint: back pain HPI: Ms. Farris is a 72 year old female who is recovering from transverse process fracture and compression fracture at L3. Over the weekend, the patient did very well. She was able to get up and out of bed with little support. She was able to walk to and from the bathroom under her own power sometimes using a walker. She rates the pain in her back as still severe, 9/10. Oral pain medication adequately controls the pain so that her function is as above. She denies pain traveling into her legs. She denies pain in the front of both thighs. Pain in the back is a severe ache and stab sensation that has been present since a fall last evening. Nurses state that the patient is doing well. She had no problems with adequate pain control over the weekend and she has been up and out of bed. the patient is wearing her back brace when out of bed. She finds it helpful to lessen pain. Past Med Surg Social Fam HX - Past Medical History Medical history: CHF, coronary artery disease, CVA, GERD, hyperlipidemia, hypertension, myocardial infarction, pulmonary embolus, seizures, other Psychiatric history: ADHD, depression - Past Surgical History Surgical History: appendectomy, cholecystectomy, hysterectomy, other (had PEG and trach in 2008 with the Guil[place], both have since been removed) - Social History Smoking Status: Current every day smoker Packs per day: 1/2 Smokeless Tobacco Status: No Alcohol use: none Drug use: none - Family History Father History Unknown: Yes Living Status: Hx Family Cardiac Disorders: Yes Mother History Unknown: Yes Living Status: Hx Family Cardiac Disorders: Yes Medications and Allergies Adalimumab [Humira Pen Crohn-Uc-Hs Starter] 40 mg SQ Q2W 04/20/15 [History] Albuterol Sulfate [Ventolin Hfa] 2 puff IH Q4H PRN 04/20/15 [History] Atorvastatin Calcium [Lipitor] 20 mg PO HS 04/20/15 [History] Budesonide/Formoterol 160/4.5 [Symbicort] 2 puff IH BIDR 04/20/15 [History] Ergocalciferol (VITAMIN D2) [Vitamin D2 (50,000 UNIT)] 50,000 unit PO SA [History] Gabapentin [Neurontin] 600 mg PO HS 04/20/15 [History] LevETIRAcetam [Keppra] 500 mg PO Q12H 04/20/15 [History] Multivitamin/Iron/Folic Acid [Centrum Complete Multivit Tab] 1 each PO DAILY [History] Pantoprazole Sodium [Protonix] 40 mg PO DAILY 04/20/15 [History] Sertraline [Zoloft] 100 mg PO DAILY 04/20/15 [History] Aspirin Enteric Coated [Aspirin EC] 81 mg PO DAILY #14 tablet. 04/21/15 [Rx] Clopidogrel [Plavix] 75 mg PO DAILY #14 tablet 04/21/15 [Rx] Ammonium Lactate 1 appl TP BID PRN 02/04/17 [History] Betamethasone Dipropionate 1 appl TP BID 02/04/17 [History] Bupropion HCl [Wellbutrin Xl] 300 mg PO QAM 02/04/17 [History] Ciclopirox 1 appl TP BID 02/04/17 [History] Gabapentin [Neurontin] 300 mg PO BID 02/04/17 [History] Magnesium 250 mg PO DAILY 02/04/17 [History] Polyethylene Glycol 3350 [MiraLAX] 17 gm PO DAILY 02/04/17 [History] Suvorexant [Belsomra] 20 mg PO HS PRN 02/04/17 [History] Lisinopril [Zestril] 40 mg PO DAILY #60 tab 02/05/17 [Rx] amLODIPine [Norvasc] 5 mg PO DAILY #30 tab 02/05/17 [Rx] Ibuprofen [Motrin] 800 mg PO TID PRN 05/08/17 [History] Metoprolol [Lopressor] 25 mg PO BID 05/08/17 [History] 3 Allergy/AdvReac Type Severity Reaction Status Date / Time hydrocodone [From [place]] Allergy Rash Verified 04/20/15 16:45 Influenza Virus Vaccines Allergy See Verified 04/20/15 16:45 Comments Iodinated Contrast- Oral and Allergy Anaphylaxis Verified 04/20/15 12:48 IV Dye [Iodinated Contrast Media - IV Dye] Review of Systems - Constitutional Constitutional ROS IM: no photophobia, no phonophobia, no daytime sleepiness, no fever(s), no stops breathing during sleep - EENT Nose, mouth and throat: no headache(s), no neck pain, no neck trauma - Cardiovascular Cardiovascular ROS: no chest pain, no leg edema, no lightheadedness - Respiratory Respiratory: no pain on inspiration, no pain with cough - Gastrointestinal Gastrointestinal: no abdominal pain, no constipation, no diarrhea, no heartburn - Genitourinary Genitourinary ROS: no difficulty urinating, no flank pain, no urinary hesitancy - Musculoskeletal Musculoskeletal ROS: no muscle weakness, no numbness, no radiating pain into limb, no tingling - Integumentary Integumentary: no erythema, no lesions, no swelling - Neurological Neurological ROS: no abnormal gait, no behavioral changes, no focal weakness, no radicular pain - Psychiatric Psychiatric general: no anxiety, no confusion, no depression - Hematologic/Lymphatic Hematologic/Lymphatic pediatric: no easy bleeding, no easy bruising Physical Exam Initial Vital Signs Temp Pulse Resp BP Pulse Ox 97.9 F 58 20 199/113 100 05/08/17 15:58 05/08/17 15:58 05/08/17 15:58 05/08/17 15:58 05/08/17 15:58 - Additional Findings EYES:: pupils equal and round, no myosis. SKIN:: no areas of echymoses or petechiae CARDIOVASCULAR:: regular rate and rhythm PULMONARY:: Quiet, normal respiratory pattern. GASTROINTESTINAL:: nontender. MUSCULOSKELETAL INSPECTION:: no echymosis in lumbar area. PALPATION:: tender over L3 and L4 spinous process, tender in left lumbar paraspinal area, not right ROM:: Active flexion and extension are reduced in the lumbar area. Active Rotation is reduced in the lumbar area. STRENGTH:: RIGHT hip flexors: 5/5 :: LEFT hip flexors: 5/5 RIGHT hip adduction 5/5 :: LEFT hip adduction 5/5 RIGHT hip abduction 5/5 :: LEFT hip abduction 5/5 RIGHT knee extension 5/5 :: LEFT knee extension 5/5 RIGHT knee flexion 5/5 :: LEFT knee flexion 5/5 RIGHT ankle dorsiflexion 5/5 :: LEFT ankle dorsiflexion 5/5 RIGHT ankle plantarflexion 5/5 :: LEFT ankle plantarflexion 5/5 STRAIGHT LEG RAISE:: LLE is negative at 90 degrees. RLE is negative at 90 degrees. NEUROLOGIC SENSATION:: hypesthesia is not noted in lower extremity dermatomes. SIGNS OF NEUROVASCULAR COMPRESSION Spasticity:: none Atrophy:: not present in UE or LE musculature Fasciculation:: not present in UE or LE musculature PSYCHIATRIC:: ORIENTATION:: awake and alert. INSIGHT:: good awareness of illness. AFFECT:: pleasant, calm Radiology Images Viewed By Me:: [default value] I have reviewed and agree with information documented in the scribed documentation, ROS, patient medications, allergies, medical history, surgical history, social history, and family history. Results - Labs 05/10/17 04:46 05/10/17 04:46 Abnormal lab results Glucose 141 mg/dL (70-99) H 05/10/17 04:46 B-Natriuretic Peptide 261 pg/mL (0-100) H 05/08/17 21:55 All other labs normal. - VTE Documentation of Mechanical Device: Venous foot pump, device Consult Discharge Plan - Plan Referrals: Katelin Lutehr MD [Primary Care Provider] -
--- NOTE | 2017-05-12 09:07 | Discharge Summary ---
Date of Encounter: 05/12/17 Time of Encounter: 09:00 - Discharge Diagnosis (1) Lumbar compression fracture Priority: Primary Status: Acute Qualifiers: Encounter type: initial encounter Lumbar vertebra fracture level: L3 Fracture type: closed Qualified Code(s): S32.030A - Wedge compression fracture of third lumbar vertebra, initial encounter for closed fracture (2) Hypertensive urgency Priority: Primary Status: Acute (3) HTN (hypertension) Priority: Secondary Status: Chronic Qualifiers: Hypertension type: essential hypertension Qualified Code(s): I10 - Essential (primary) hypertension (4) History of CVA (cerebrovascular accident) Priority: Secondary Status: Chronic (5) GERD (gastroesophageal reflux disease) Priority: Secondary Status: Acute Qualifiers: Esophagitis presence: without esophagitis Qualified Code(s): K21.9 - Gastro -esophageal reflux disease without esophagitis (6) HLD (hyperlipidemia) Priority: Secondary Status: Acute Qualifiers: Hyperlipidemia type: unspecified Qualified Code(s): E78.5 - Hyperlipidemia , unspecified (7) Vitamin D deficiency Priority: Secondary Status: Acute (8) CAD (coronary artery disease) Priority: Secondary Status: Chronic Qualifiers: Coronary Disease-Associated Artery/Lesion type: [place] artery [place] vs. transplanted heart: [place] heart Associated angina: without angina Qualified Code(s): I25.10 - Atherosclerotic heart disease of [place] coronary artery without angina pectoris - Discharge Medications Prescriptions: OxyCODONE/APAP 5/325 [Percocet 5/325 MG] 1 each PO Q4HR PRN #10 tablet PRN Reason: Pain Home Medications: Adalimumab [Humira Pen Crohn-Uc-Hs Starter] 40 mg SQ Q2W 04/20/15 [History] Albuterol Sulfate [Ventolin Hfa] 2 puff IH Q4H PRN 04/20/15 [History] Atorvastatin Calcium [Lipitor] 20 mg PO HS 04/20/15 [History] Budesonide/Formoterol 160/4.5 [Symbicort] 2 puff IH BIDR 04/20/15 [History] Ergocalciferol (VITAMIN D2) [Vitamin D2 (50,000 UNIT)] 50,000 unit PO SA [History] Gabapentin [Neurontin] 600 mg PO HS 04/20/15 [History] LevETIRAcetam [Keppra] 500 mg PO Q12H 04/20/15 [History] Multivitamin/Iron/Folic Acid [Centrum Complete Multivit Tab] 1 each PO DAILY [History] Pantoprazole Sodium [Protonix] 40 mg PO DAILY 04/20/15 [History] Sertraline [Zoloft] 100 mg PO DAILY 04/20/15 [History] Aspirin Enteric Coated [Aspirin EC] 81 mg PO DAILY #14 tablet. 04/21/15 [Rx] Clopidogrel [Plavix] 75 mg PO DAILY #14 tablet 04/21/15 [Rx] Ammonium Lactate 1 appl TP BID PRN 02/04/17 [History] Betamethasone Dipropionate 1 appl TP BID 02/04/17 [History] Bupropion HCl [Wellbutrin Xl] 300 mg PO QAM 02/04/17 [History] Ciclopirox 1 appl TP BID 02/04/17 [History] Gabapentin [Neurontin] 300 mg PO BID 02/04/17 [History] Magnesium 250 mg PO DAILY 02/04/17 [History] Polyethylene Glycol 3350 [MiraLAX] 17 gm PO DAILY 02/04/17 [History] Suvorexant [Belsomra] 20 mg PO HS PRN 02/04/17 [History] Lisinopril [Zestril] 40 mg PO DAILY #60 tab 02/05/17 [Rx] amLODIPine [Norvasc] 5 mg PO DAILY #30 tab 02/05/17 [Rx] Ibuprofen [Motrin] 800 mg PO TID PRN 05/08/17 [History] Metoprolol [Lopressor] 25 mg PO BID 05/08/17 [History] OxyCODONE/APAP 5/325 [Percocet 5/325 MG] 1 each PO Q4HR PRN #10 tablet 05/12/17 [Rx] Allergies/Adverse Reactions: 3 Allergy/AdvReac Type Severity Reaction Status Date / Time hydrocodone [From [place]] Allergy Rash Verified 04/20/15 16:45 Influenza Virus Vaccines Allergy See Verified 04/20/15 16:45 Comments Iodinated Contrast- Oral and Allergy Anaphylaxis Verified 04/20/15 12:48 IV Dye [Iodinated Contrast Media - IV Dye] Date of admission: 05/08/17 20:06 Primary care physician: Katelin Luther MD Consults: 05/08/17 20:37 Consult to Orthopedic Surgery [CONS] Stat Consulting Provider: Conor Barros Jr Reason for Consult: acute compression fracture Time Notified: 19:00 Call Completed: Yes 05/09/17 16:02 Consult to [facility]ner [CONS] Routine Reason for SW Consult: discharge planning 05/09/17 16:32 PT [Consult to Physical Therapy] [CONS] Routine Comment: Evaluate, develop and implement POC Reason for Consult: functional evaluation for acute L3 compression fracture - Patient Status Disposition: Transfer Inpatient Rehab Fac Condition: Fair Overall status at discharge: patient is progressing back to baseline - Discharge Instructions Follow Up With: Michele Whiting DO [Partnered Physician] - 05/23/17 8:10 am (Appt. on 05/13/[address] Whiting is cancelled.) Katelin Luther MD [Primary Care Provider] - Additional Instructions: WAER BACK BRACE WITH AMBULATION, PRN COMFORT. - Diet and Activity Activity: as per physical therapy Diet: low salt diet Hospital course: Ms. Farris is a 72 year old female with a past medical history of CHF, CAD, CVA x5, GERD, HLD, HTN, GBS (2008), Depression, Psoriasis and Insomnia who presents to the [facility] with a chief complaint of low back pain. 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 She was brought via EMS to the ED. On arrival to the hospital, her vitals signs showed elevated BP but quickly dropped after morphine was administered. EKG unremarkable. Lumbar and thoracic XR as well as lumbar and thoracic CT were performed and demonstrated L3 compression fracture with associated non-displaced right transverse process fracture. Orthopedic spine surgery was consulted and she was admitted to the hospitalist service. There was a discussion with the patient regarding possible surgery. At the end was decided that the patient be put in a back brace. Orthopedics wanted to see how the patient does over the weekend on pain medication and if she is able to tolerate some activity while in the brace in order to avoid surgery. Her pain was very well controlled on [place]. She worked with therapy. Orthopedics came and saw her on day of discharge and recommended she be discharged to rehabilitation and I will see her in office in about 2 weeks in order to decide if the patient would need any surgical intervention. She is being discharged on 05/12/2017.t. - Time Spent with Patient Total time spent providing and/or coordinating discharge services: - Constitutional Vitals: Temp Pulse Resp BP Pulse Ox 97.9 F 60 15 159/93 93 05/12/17 06:49 05/12/17 06:49 05/12/17 06:49 05/12/17 06:49 05/12/17 06:49 General appearance: Present: cooperative, A&O X 3, answers questions appropriately Exam: GEN: NAD CVS: RRR. S1, S2, No m/r/g RESP: CTAB ABD: Soft, NT, ND, +BS EXT: No edema. 2+ DP, No rashes. Brace noted around midabdomen and back NEURO: 3/5 strength in LUE and LLE which is chronic. otherwise nonfocal - VTE Documentation of Mechanical Device: Venous foot pump, device
--- NOTE | 2017-05-12 09:09 | Physician Discharge Referral ---
- Diagnosis (1) Lumbar compression fracture Status: Acute (2) Hypertensive urgency Priority: Primary Status: Acute (3) HTN (hypertension) Priority: Secondary Status: Chronic (4) History of CVA (cerebrovascular accident) Priority: Secondary Status: Chronic (5) GERD (gastroesophageal reflux disease) Priority: Secondary Status: Acute (6) HLD (hyperlipidemia) Priority: Secondary Status: Acute (7) Vitamin D deficiency Priority: Secondary Status: Acute (8) CAD (coronary artery disease) Priority: Secondary Status: Chronic - Transfer Medications Prescriptions: OxyCODONE/APAP 5/325 [Percocet 5/325 MG] 1 each PO Q4HR PRN #10 tablet PRN Reason: Pain Home Medications: Adalimumab [Humira Pen Crohn-Uc-Hs Starter] 40 mg SQ Q2W 04/20/15 [History] Albuterol Sulfate [Ventolin Hfa] 2 puff IH Q4H PRN 04/20/15 [History] Atorvastatin Calcium [Lipitor] 20 mg PO HS 04/20/15 [History] Budesonide/Formoterol 160/4.5 [Symbicort] 2 puff IH BIDR 04/20/15 [History] Ergocalciferol (VITAMIN D2) [Vitamin D2 (50,000 UNIT)] 50,000 unit PO SA [History] Gabapentin [Neurontin] 600 mg PO HS 04/20/15 [History] LevETIRAcetam [Keppra] 500 mg PO Q12H 04/20/15 [History] Multivitamin/Iron/Folic Acid [Centrum Complete Multivit Tab] 1 each PO DAILY [History] Pantoprazole Sodium [Protonix] 40 mg PO DAILY 04/20/15 [History] Sertraline [Zoloft] 100 mg PO DAILY 04/20/15 [History] Aspirin Enteric Coated [Aspirin EC] 81 mg PO DAILY #14 tablet. 04/21/15 [Rx] Clopidogrel [Plavix] 75 mg PO DAILY #14 tablet 04/21/15 [Rx] Ammonium Lactate 1 appl TP BID PRN 02/04/17 [History] Betamethasone Dipropionate 1 appl TP BID 02/04/17 [History] Bupropion HCl [Wellbutrin Xl] 300 mg PO QAM 02/04/17 [History] Ciclopirox 1 appl TP BID 02/04/17 [History] Gabapentin [Neurontin] 300 mg PO BID 02/04/17 [History] Magnesium 250 mg PO DAILY 02/04/17 [History] Polyethylene Glycol 3350 [MiraLAX] 17 gm PO DAILY 02/04/17 [History] Suvorexant [Belsomra] 20 mg PO HS PRN 02/04/17 [History] Lisinopril [Zestril] 40 mg PO DAILY #60 tab 02/05/17 [Rx] amLODIPine [Norvasc] 5 mg PO DAILY #30 tab 02/05/17 [Rx] Ibuprofen [Motrin] 800 mg PO TID PRN 05/08/17 [History] Metoprolol [Lopressor] 25 mg PO BID 05/08/17 [History] OxyCODONE/APAP 5/325 [Percocet 5/325 MG] 1 each PO Q4HR PRN #10 tablet 05/12/17 [Rx] Allergies/Adverse Reactions: 3 Allergy/AdvReac Type Severity Reaction Status Date / Time hydrocodone [From [place]] Allergy Rash Verified 04/20/15 16:45 Influenza Virus Vaccines Allergy See Verified 04/20/15 16:45 Comments Iodinated Contrast- Oral and Allergy Anaphylaxis Verified 04/20/15 12:48 IV Dye [Iodinated Contrast Media - IV Dye] - Respiratory Orders Smoking Cessation: Smoking cessation has been advised. For more information, call the [place] Tobacco Quit Line at 1-683-XUHG-NOW. - Rehabiliation Orders Rehab Potential: Good Rehab Orders: Evaluation for Physical Therapy (diabetic diet) - Diet Orders Regular CERTIFICATION: I certify that the transfer of the above named patient to an Extended Care Facility is necessary for the continuing treatment of the diagnosis listed. The above information is true and accurate reflection of patient's current condition. Confidential - Redisclosure prohibited without a patient's written consent.
[2017-05-12] MEDS: Budesonide/Formoterol 160/4.5 MDI IH SCH (09:54)
== END 2017-05-12 11:05 | DRG 552 ==
LOC: EMEROO 15:56 → 3NENU 15:56 → SUATTDRO 20:06 → 3NENU 20:48
PROVIDERS: ADMIT Family Medicine; ATTEND Internal Medicine

== ENCOUNTER 2017-12-07 12:01 | Observation (INO) ==
[2017-12-07] MEDS ORDERED: 0.9 % Sodium Chloride 1,000 ML IVC ONE (12:18)
--- NOTE | 2017-12-07 12:22 | Emergency Department Note ---
Disposition Clinical Impression: Altered mental status Qualifiers: Altered mental status type: unspecified Qualified Code(s): R41.82 - Altered mental status, unspecified Disposition: Admitted As Inpatient Condition: Good Forms: ED Satisfaction Letter Altered Mental Status HPI - General Chief Complaint: ED Altered Mental Status Stated Complaint: agitation Time Seen by Provider: 12/07/17 12:18 Source: patient Limitations: altered mental status Nursing Notes Reviewed: Yes Vital Signs Reviewed: Yes - History of Present Illness HPI Narrative: Patient presents to the emergency department for evaluation of altered mental status and abnormal behavior. Patient slurring words and not acting like herself. Patient lives in assisted living facility is normally able to take care of ADLs. Sits outside a significant portion of the time throughout the day. The patient was reportedly hallucinating talking and seeing things that were not there. Patient was acting very aggressive which is also not like her typical behavior. Upon arrival in the emergency department she significantly slurring her words and speech. There is no family at bedside to compare baseline behavior. At one point she asked who is in the corner of the room when no one was there. Patient will undergo further evaluation for altered mental status concerning for hallucinations. - Related Data Home Medications Medication Instructions Recorded Confirmed Adalimumab [Humira Pen Crohn-Uc-Hs 40 mg SQ Q2W 04/20/15 05/08/17 Starter] Albuterol Sulfate [Ventolin Hfa] 2 puff IH Q4H PRN 04/20/15 05/08/17 Atorvastatin Calcium [Lipitor] 20 mg PO HS 04/20/15 05/08/17 Budesonide/Formoterol 160/4.5 2 puff IH BIDR 04/20/15 05/08/17 [Symbicort] Ergocalciferol (VITAMIN D2) 50,000 unit PO SA 04/20/15 05/08/17 [Vitamin D2 (50,000 UNIT)] Gabapentin [Neurontin] 600 mg PO HS 04/20/15 05/08/17 LevETIRAcetam [Keppra] 500 mg PO Q12H 04/20/15 05/08/17 Multivitamin/Iron/Folic Acid 1 each PO DAILY 04/20/15 05/08/17 [Centrum Complete Multivit Tab] Pantoprazole Sodium [Protonix] 40 mg PO DAILY 04/20/15 05/08/17 Sertraline [Zoloft] 100 mg PO DAILY 04/20/15 05/08/17 Ammonium Lactate 1 appl TP BID PRN 02/04/17 05/08/17 Betamethasone Dipropionate 1 appl TP BID 02/04/17 05/08/17 Bupropion HCl [Wellbutrin Xl] 300 mg PO QAM 02/04/17 05/08/17 Ciclopirox 1 appl TP BID 02/04/17 05/08/17 Gabapentin [Neurontin] 300 mg PO BID 02/04/17 05/08/17 Magnesium 250 mg PO DAILY 02/04/17 05/08/17 Polyethylene Glycol 3350 [MiraLAX] 17 gm PO DAILY 02/04/17 05/08/17 Suvorexant [Belsomra] 20 mg PO HS PRN 02/04/17 05/08/17 Ibuprofen [Motrin] 800 mg PO TID PRN 05/08/17 05/08/17 Metoprolol [Lopressor] 25 mg PO BID 05/08/17 05/08/17 Previous Rx's Medication Instructions Recorded Aspirin Enteric Coated [Aspirin EC] 81 mg PO DAILY #14 tablet. 04/21/15 Clopidogrel [Plavix] 75 mg PO DAILY #14 tablet 04/21/15 Lisinopril [Zestril] 40 mg PO DAILY #60 tab 02/05/17 amLODIPine [Norvasc] 5 mg PO DAILY #30 tab 02/05/17 OxyCODONE/APAP 5/325 [Percocet 1 each PO Q4HR PRN #10 tablet 05/12/17 5/325 MG] Allergies Allergy/AdvReac Type Severity Reaction Status Date / Time hydrocodone [From [place]] Allergy Rash Verified 04/20/15 16:45 Influenza Virus Vaccines Allergy See Verified 04/20/15 16:45 Comments Iodinated Contrast- Oral and Allergy Anaphylaxis Verified 04/20/15 12:48 IV Dye [Iodinated Contrast Media - IV Dye] Review of Systems: Patient denies medical problems. Reported altered mental status as well as visual hallucinations. Limitations: ROS unobtainable due to patients medical condition Past Medical History - Past Medical History Medical history: Reports: CHF, coronary artery disease, CVA, GERD, hyperlipidemia, hypertension, myocardial infarction, pulmonary embolus, seizures , other Surgical history: Reports: appendectomy, cholecystectomy, hysterectomy, other ( had PEG and trach in 2009 with the [place], both have since been removed) Psychiatric history: Reports: ADHD, depression - Social History Smoking Status: Current every day smoker Smokeless Tobacco Status: No Alcohol use: Reports: none Drug use: Reports: none Physical Exam General: Well appearing, nontoxic, no acute distress Head: Normocephalic Atraumatic Eyes: PERRL, EOMI ENT: Airway patent, no stridor Neck: supple, no meningismus Chest: Lungs clear to auscultation bilateral Cardiac: Regular rate and rhythm, no murmurs, rubs or gallops Abdomen: soft, nontender, nondistended; no guarding, rebound, or tenderness to percussion Musculoskeletal: Calves symmetric, nontender, no palpable cord Skin: Dark and bruce without rash Neuro: Alert and Oriented to person, place but not time. Patient's eyes drooping but no deficits or cranial nerves II through XII. 5 out of 5 muscle strength throughout the upper lower extremities. Psych: Hallucinations on exam, seeing someone that was not there. - General Limitations: altered mental status General appearance: appears intoxicated Course Course Narrative: Patient complaining of left lower quadrant abdominal pain during evaluation. Patient was examined and has a soft and nontender abdomen. Pain did not start after palpation. Describes pain that lasted for approximately 1 minute and sharp in nature. This pain resolved for some time but then had 2 episodes where she was crying in pain secondary to the left lower quadrant. Will obtain CT scan for further investigation. On reevaluation the patient's symptoms have significantly improved. I have no explanation for why she was acting as she was. Possible dementia versus polypharmacy versus seizure versus other potential diagnoses were discussed. Patient has not been febrile. Patient does not have an elevated white count. Family is at bedside and states she is not quite back to baseline but does seem much better. Admission versus discharge was discussed the patient. Family feels more comfortable keeping her in the hospital. Vital Signs Temperature 97.9 F 12/07/17 12:10 Pulse Rate 76 12/07/17 12:10 Respiratory Rate 15 12/07/17 12:10 Blood Pressure 135/82 12/07/17 12:10 O2 Sat by Pulse Oximetry 94 12/07/17 12:10 Temperature 97.9 F 12/07/17 12:10 Pulse Rate 58 12/07/17 15:35 Respiratory Rate 15 12/07/17 15:35 Blood Pressure 133/78 12/07/17 15:35 O2 Sat by Pulse Oximetry 94 12/07/17 15:35 Oxygen Delivery Oxygen Delivery Room Air Altered Mental Status - Lab Data Result diagrams: 12/07/17 13:10 12/07/17 13:10 Lab Results 12/07/17 12/07/17 12/07/17 Range/Units 13:10 13:10 13:10 WBC 10.2 (4.3-11.1) K/mcL RBC 4.30 (3.82-4.97) M/mcL Hgb 13.0 (11.5-15.4) g/dL Hct 38.0 (35.3-44.9) % MCV 88.4 (83.0-100.0) fL MCH 30.2 (28.0-33.3) pg MCHC 34.2 (31.6-35.5) g/dL RDW 11.9 (11.5-14.5) % Plt Count 184 (140-400) K/mcL MPV 11.0 (9.4-12.4) fL Immature Gran % 0.2 (0-4) % Seg Neutrophils % 52.9 % Lymphocytes % 33.4 % Monocytes % 11.2 % Eosinophils % 1.9 % Basophils % 0.4 % Neutrophils # 5.4 (1.6-8.9) K/mcL Lymphocytes # 3.4 (0.6-4.6) K/mcL Monocytes # 1.1 (0.0-1.3) K/mcL Eosinophils # 0.2 (0.0-0.6) K/mcL Basophils # 0.0 (0.0-0.2) K/mcL PT 12.4 H (9.4-12.1) Seconds INR 1.1 Sodium 134 L (136-145) mEq/L Potassium 3.8 (3.5-5.1) mEq/L Chloride 107 (98-107) mEq/L Carbon Dioxide 20 L (23-29) mEq/L BUN 13 (8-23) mg/dL Creatinine 0.84 (0.60-1.20) mg/dL Est GFR ( Amer) > 60 (> 60) Est GFR (Non-Af Amer) > 60 (> 60) BUN/Creatinine Ratio 15 (6-26) Glucose 108 H (70-105) mg/dL Calculated Osmolality 279 L (280-300) Calcium 9.4 (8.6-10.3) mg/dL Total Bilirubin 0.5 (0.3-1.0) mg/dL Direct Bilirubin 0.1 (0.0-0.2) mg/dL Indirect Bilirubin 0.4 (0.0-1.2) mg/dL AST 21 (13-39) Units/L ALT 11 (7-52) Units/L Alkaline Phosphatase 49 (34-104) Units/L Creatine Kinase (30-223) Units/L Troponin I < 0.03 (< 0.04) ng/mL Serum Total Protein 6.3 L (6.4-8.9) g/dL Albumin 4.1 (3.5-5.7) g/dL Globulin 2.2 L (2.4-3.5) g/dL Albumin/Globulin Ratio 1.9 (1.1-2.2) TSH (0.340-5.600) mcIU/mL Urine Color (Yellow) Urine Clarity (Clear) Urine pH (5.0-8.0) pH Units Ur Specific [place] (1.010-1.025) Urine Protein (Neg-Trace) mg/dL Urine Glucose (UA) (Normal) mg/dL Urine Ketones (Negative) mg/dL Urine Blood (Negative) Urine Nitrite (Negative) Urine Bilirubin (Negative) Urine Urobilinogen (Normal) mg/dL Ur Leukocyte Esterase (Negative) Ur Culture Indicated? (NO) Urine Opiates Screen (Vlqnls=691) ng/mL Ur Barbiturates Screen (Nczzlz=548) ng/mL Ur Phencyclidine Scrn (Cutoff=25) ng/mL Ur Amphetamines Screen (Cykgyv=9373) ng/mL U Benzodiazepines Scrn (Wmusdy=693) ng/mL Urine Cocaine Screen (Cutoff= 300) ng/mL U Marijuana (THC) Screen (Cutoff = 50) ng/mL Ur Drug Screen Interp Ethyl Alcohol < 10 (Less than 10) mg/dL 12/07/17 12/07/17 12/07/17 Range/Units 13:10 13:59 13:59 WBC (4.3-11.1) K/mcL RBC (3.82-4.97) M/mcL Hgb (11.5-15.4) g/dL Hct (35.3-44.9) % MCV (83.0-100.0) fL MCH (28.0-33.3) pg MCHC (31.6-35.5) g/dL RDW (11.5-14.5) % Plt Count (140-400) K/mcL MPV (9.4-12.4) fL Immature Gran % (0-4) % Seg Neutrophils % % Lymphocytes % % Monocytes % % Eosinophils % % Basophils % % Neutrophils # (1.6-8.9) K/mcL Lymphocytes # (0.6-4.6) K/mcL Monocytes # (0.0-1.3) K/mcL Eosinophils # (0.0-0.6) K/mcL Basophils # (0.0-0.2) K/mcL PT (9.4-12.1) Seconds INR Sodium (136-145) mEq/L Potassium (3.5-5.1) mEq/L Chloride (98-107) mEq/L Carbon Dioxide (23-29) mEq/L BUN (8-23) mg/dL Creatinine (0.60-1.20) mg/dL Est GFR ( Amer) (> 60) Est GFR (Non-Af Amer) (> 60) BUN/Creatinine Ratio (6-26) Glucose (70-105) mg/dL Calculated Osmolality (280-300) Calcium (8.6-10.3) mg/dL Total Bilirubin (0.3-1.0) mg/dL Direct Bilirubin (0.0-0.2) mg/dL Indirect Bilirubin (0.0-1.2) mg/dL AST (13-39) Units/L ALT (7-52) Units/L Alkaline Phosphatase (34-104) Units/L Creatine Kinase 289 H (30-223) Units/L Troponin I (< 0.04) ng/mL Serum Total Protein (6.4-8.9) g/dL Albumin (3.5-5.7) g/dL Globulin (2.4-3.5) g/dL Albumin/Globulin Ratio (1.1-2.2) TSH 1.299 (0.340-5.600) mcIU/mL Urine Color Yellow (Yellow) Urine Clarity Clear (Clear) Urine pH 6.5 (5.0-8.0) pH Units Ur Specific [place] 1.013 (1.010-1.025) Urine Protein Negative (Neg-Trace) mg/dL Urine Glucose (UA) Normal (Normal) mg/dL Urine Ketones Negative (Negative) mg/dL Urine Blood Negative (Negative) Urine Nitrite Negative (Negative) Urine Bilirubin Negative (Negative) Urine Urobilinogen Normal (Normal) mg/dL Ur Leukocyte Esterase Negative (Negative) Ur Culture Indicated? NO (NO) Urine Opiates Screen Negative (Vfpcnb=095) ng/mL Ur Barbiturates Screen Negative (Zobjwk=613) ng/mL Ur Phencyclidine Scrn Negative (Cutoff=25) ng/mL Ur Amphetamines Screen Negative (Xtjvht=9847) ng/mL U Benzodiazepines Scrn Negative (Cfhuyv=470) ng/mL Urine Cocaine Screen Negative (Cutoff= 300) ng/mL U Marijuana (THC) Screen Negative (Cutoff = 50) ng/mL Ur Drug Screen Interp See Below Ethyl Alcohol (Less than 10) mg/dL TPA Checklist - LKW: 3-4.5 hrs Add. Warnings/Precautions Patient/family understanding: The patient/family members have been counseled and understood the risk, benefit , and alternatives of treatment.
[2017-12-07] MEDS ORDERED: Acetaminophen 325 MG TABLET PO ONE (13:18)
[2017-12-07 13:28] LABS: Basophils % 0.4 %; Eosinophils # 0.2 K/mcL (0.0-0.6); Eosinophils % 1.9 %; Immature Granulocytes % 0.2 % (0-4); Lymphocytes # 3.4 K/mcL (0.6-4.6); Lymphocytes % 33.4 %; Mean Corpuscular HGB Conc 34.2 g/dL (31.6-35.5); Mean Corpuscular Hemoglobin 30.2 pg (28.0-33.3); Mean Corpuscular Volume 88.4 fL (83.0-100.0); Monocytes # 1.1 K/mcL (0.0-1.3); Monocytes % 11.2 %; Neutrophils # 5.4 K/mcL (1.6-8.9); Platelet Count 184 K/mcL (140-400); Red Cell Distribution Width 11.9 % (11.5-14.5); Segmented Neutrophils % 52.9 %
[2017-12-07 13:45] LABS: INR 1.1; Prothrombin Time 12.4 Seconds (9.4-12.1)
[2017-12-07 13:48] LABS: Alanine Aminotransferase 11 Units/L (7-52); Albumin 4.1 g/dL (3.5-5.7); Albumin/Globulin Ratio 1.9 (1.1-2.2); Alkaline Phosphatase 49 Units/L (34-104); Aspartate Amino Transferase 21 Units/L (13-39); BUN/Creatinine Ratio 15 (6-26); Bilirubin,Direct 0.1 mg/dL (0.0-0.2); Bilirubin,Indirect 0.4 mg/dL (0.0-1.2); Bilirubin,Total 0.5 mg/dL (0.3-1.0); Blood Urea Nitrogen 13 mg/dL (8-23); Calcium 9.4 mg/dL (8.6-10.3); Carbon Dioxide 20 mEq/L (23-29); Chloride 107 mEq/L (98-107); Ethanol < 10 mg/dL (Less than 10); Globulin 2.2 g/dL (2.4-3.5); Glucose 108 mg/dL (70-105); Osmolality,Calculated 279 (280-300); Potassium 3.8 mEq/L (3.5-5.1); Sodium 134 mEq/L (136-145); Total Protein 6.3 g/dL (6.4-8.9); Troponin I < 0.03 ng/mL (< 0.04); eGFR For African Americans > 60 (> 60); eGFR For Non-African Americans > 60 (> 60)
[2017-12-07 14:00] LABS: Thyroid Stimulating Hormone 1.299 mcIU/mL (0.340-5.600)
[2017-12-07 14:09] LABS: Bilirubin,Urine Negative (Negative); Blood,Urine Negative (Negative); Clarity,Urine Clear (Clear); Color,Urine Yellow (Yellow); Glucose,Urine (UA) Normal (Normal); Ketones,Urine Negative (Negative); Leukocyte Esterase,Urine Negative (Negative); Nitrite,Urine Negative (Negative); PH,Urine 6.5 pH Units (5.0-8.0); Protein,Urine Negative (Neg-Trace); Specific Gravity,Urine 1.013 (1.010-1.025); Urobilinogen,Urine Normal (Normal)
[2017-12-07 14:21] LABS: Amphetamine Screen,Urine Negative ng/mL (Cutoff=1000); Barbiturate Screen,Urine Negative ng/mL (Cutoff=200); Benzodiazepines Screen,Urine Negative ng/mL (Cutoff=200); Cannabinoid Screen,Urine Negative ng/mL (Cutoff = 50); Cocaine Screen,Urine Negative ng/mL (Cutoff= 300); Opiate Screen,Urine Negative ng/mL (Cutoff=300); Phencyclidine Screen,Urine Negative ng/mL (Cutoff=25)
[2017-12-07] MEDS ORDERED: Ibuprofen 800 MG TABLET PO PRN (20:13)
[2017-12-07] MEDS ORDERED: Ammonium Lactate 30 APPL/225 GM BOTTLE TP PRN (20:13)
--- NOTE | 2017-12-07 20:13 | Internal Med History&Physical ---
Date of Encounter: 12/07/17 Time of Encounter: 20:13 Internal Medicine - H&P: HPI Chief complaint: change of MS History of present illness: Ms. Farris is a 72 year old female Patient presents to the emergency department for evaluation of altered mental status and abnormal behavior. Patient lives in assisted living facility is normally able to take care of ADLs. The patient was reportedly hallucinating talking and seeing things that were not there. Ct scan of the head is negative and she is neurologically intact. Past Med Surg Social Fam HX - Past Medical History Medical history: CHF, coronary artery disease, CVA, GERD, hyperlipidemia, hypertension, myocardial infarction, pulmonary embolus, seizures, other Additional medical history: guillian barre, legally blind Psychiatric history: ADHD, depression - Past Surgical History Surgical History: appendectomy, cholecystectomy, hysterectomy, other Additional surgical history: tumor removed from small intestine - Social History Smoking Status: Current every day smoker Smokeless Tobacco Status: No Alcohol use: none Drug use: none - Family History Father Living Status: Hx Family Cardiac Disorders: Yes Mother Living Status: Hx Family Cardiac Disorders: Yes Internal Medicine - H&P: Meds Adalimumab [Humira Pen Crohn-Uc-Hs Starter] 40 mg SQ Q2W 04/20/15 [History] Albuterol Sulfate [Ventolin Hfa] 2 puff IH Q4H PRN 04/20/15 [History] Atorvastatin Calcium [Lipitor] 20 mg PO HS 04/20/15 [History] Budesonide/Formoterol 160/4.5 [Symbicort] 2 puff IH BIDR 04/20/15 [History] Ergocalciferol (VITAMIN D2) [Vitamin D2 (50,000 UNIT)] 50,000 unit PO SA [History] Gabapentin [Neurontin] 600 mg PO HS 04/20/15 [History] LevETIRAcetam [Keppra] 500 mg PO Q12H 04/20/15 [History] Multivitamin/Iron/Folic Acid [Centrum Complete Multivit Tab] 1 each PO DAILY [History] Pantoprazole Sodium [Protonix] 40 mg PO DAILY 04/20/15 [History] Sertraline [Zoloft] 100 mg PO DAILY 04/20/15 [History] Aspirin Enteric Coated [Aspirin EC] 81 mg PO DAILY #14 tablet. 04/21/15 [Rx] Clopidogrel [Plavix] 75 mg PO DAILY #14 tablet 04/21/15 [Rx] Ammonium Lactate 1 appl TP BID PRN 02/04/17 [History] Betamethasone Dipropionate 1 appl TP BID 02/04/17 [History] Bupropion HCl [Wellbutrin Xl] 300 mg PO QAM 02/04/17 [History] Ciclopirox 1 appl TP BID 02/04/17 [History] Gabapentin [Neurontin] 300 mg PO BID 02/04/17 [History] Magnesium 250 mg PO DAILY 02/04/17 [History] Polyethylene Glycol 3350 [MiraLAX] 17 gm PO DAILY 02/04/17 [History] Suvorexant [Belsomra] 20 mg PO HS PRN 02/04/17 [History] Lisinopril [Zestril] 40 mg PO DAILY #60 tab 02/05/17 [Rx] amLODIPine [Norvasc] 5 mg PO DAILY #30 tab 02/05/17 [Rx] Ibuprofen [Motrin] 800 mg PO TID PRN 05/08/17 [History] Metoprolol [Lopressor] 25 mg PO BID 05/08/17 [History] Alendronate Sodium [Fosamax] 70 mg PO QWEEK 12/07/17 [History] 3 Allergy/AdvReac Type Severity Reaction Status Date / Time hydrocodone [From [place]] Allergy Rash Verified 04/20/15 16:45 Influenza Virus Vaccines Allergy See Verified 04/20/15 16:45 Comments Iodinated Contrast- Oral and Allergy Anaphylaxis Verified 04/20/15 12:48 IV Dye [Iodinated Contrast Media - IV Dye] ROS unobtainable: due to mental status All Systems PM: A 10-system review of systems was performed and is negative for pertinent findings except as documented above in the HPI. - Constitutional Vitals: Temp Pulse Resp BP Pulse Ox 97.4 F L 60 16 143/78 94 12/07/17 19:52 12/07/17 19:52 12/07/17 19:52 12/07/17 19:52 12/07/17 19:52 General appearance: Present: A&O X 3 - Head Head exam: Present: atraumatic, normocephalic - Neck Neck exam general surgery: Present: supple, trachea midline. Absent: lymphadenopathy - Respiratory Respiratory exam: Present: CTAB. Absent: accessory muscle use, rales, rhonchi, wheezes - Cardiovascular Cardiovascular exam: Present: RRR, +S1, +S2. Absent: diastolic murmur, gallop, rubs, systolic murmur - GI/Abdominal GI/Abdominal exam: Present: normal bowel sounds, soft, no peritoneal signs. Absent: distended, tenderness - Extremities Exam Extremities exam: Present: warm, radial pulses palpable and symmetrical. Absent : calf tenderness, cyanotic, pedal edema Internal Med - H&P Results - Labs CBC & Chem 7: 12/08/17 01:20 12/08/17 01:20 - Assessment and plan (1) Altered mental status Current Visit: Yes Status: Acute Assessment and plan: -Change in mental status due to * dementia versus polypharmacy versus seizure *Infection- *Volume depletion *Hypernatremia *TIA *CVA *Seizure *Subdural hemorrhage PLAN: - Neuro checks - Neuro consult Qualifiers: Altered mental status type: unspecified Qualified Code(s): R41.82 - Altered mental status, unspecified (2) HTN (hypertension) Current Visit: No Status: Chronic Qualifiers: Hypertension type: essential hypertension Qualified Code(s): I10 - Essential (primary) hypertension (3) History of CVA (cerebrovascular accident) Current Visit: No Status: Chronic (4) Seizure disorder Current Visit: No Status: Acute (5) COPD (chronic obstructive pulmonary disease) Current Visit: No Status: Chronic Qualifiers: COPD type: emphysema Emphysema type: panlobular Qualified Code(s): J43.1 - Panlobular emphysema (6) HLD (hyperlipidemia) Current Visit: No Status: Acute Qualifiers: Hyperlipidemia type: unspecified Qualified Code(s): E78.5 - Hyperlipidemia , unspecified (7) DVT prophylaxis Current Visit: No Status: Acute (8) CAD (coronary artery disease) Current Visit: No Status: Chronic Qualifiers: Coronary Disease-Associated Artery/Lesion type: [place] artery [place] vs. transplanted heart: [place] heart Associated angina: without angina Qualified Code(s): I25.10 - Atherosclerotic heart disease of [place] coronary artery without angina pectoris (9) GERD (gastroesophageal reflux disease) Current Visit: No Status: Acute Qualifiers: Esophagitis presence: without esophagitis Qualified Code(s): K21.9 - Gastro -esophageal reflux disease without esophagitis - Time Spent With Patient Total time spent is greater than 50% in coordination of care (as documented) at patient's floor/unit and/or counseling patient:
[2017-12-07] MEDS ORDERED: NON-FORMULARY MEDICATION 1 EACH EACH (Alendronate Sodium [Fosamax] 70 MG) PO SCH (20:15)
[2017-12-07] MEDS ORDERED: ADALIMUMAB 40 MG SQ SCH (20:15)
[2017-12-07] MEDS ORDERED: Naloxone 0.4 MG/ML INJ IVP PRN (20:18)
[2017-12-07] MEDS ORDERED: Gabapentin 300 MG CAPSULE PO SCH ×2 (21:00)
[2017-12-07] MEDS ORDERED: FluocinoNIDE 0.05% CRM 15 GM TUBE TP SCH (21:00)
[2017-12-07] MEDS: levETIRAcetam 250 MG TABLET PO SCH (21:08)
[2017-12-07] MEDS: Budesonide/Formoterol 160/4.5 MDI IH SCH (22:10)
[2017-12-07] MEDS: Clotrimazole 1% CRM 15 GM TUBE TP SCH (23:16)
[2017-12-08 01:36] LABS: Hematocrit 44.1 % (35.3-44.9); Mean Corpuscular HGB Conc 35.1 g/dL (31.6-35.5); Mean Corpuscular Hemoglobin 31.3 pg (28.0-33.3); Mean Corpuscular Volume 89.1 fL (83.0-100.0); Platelet Count 194 K/mcL (140-400); Red Blood Count 4.95 M/mcL (3.82-4.97)
[2017-12-08 01:45] LABS: Prothrombin Time 11.8 Seconds (9.4-12.1)
[2017-12-08 01:48] LABS: Activated Partial Thrombo Time 33.5 Seconds (26.0-36.0)
[2017-12-08 01:54] LABS: Alanine Aminotransferase 11 Units/L (7-52); Albumin 4.4 g/dL (3.5-5.7); Albumin/Globulin Ratio 1.5 (1.1-2.2); Alkaline Phosphatase 56 Units/L (34-104); Aspartate Amino Transferase 24 Units/L (13-39); BUN/Creatinine Ratio 14 (6-26); Bilirubin,Total 0.6 mg/dL (0.3-1.0); Blood Urea Nitrogen 9 mg/dL (8-23); Calcium 9.9 mg/dL (8.6-10.3); Carbon Dioxide 19 mEq/L (23-29); Chloride 111 mEq/L (98-107); Chol/HDL Ratio 2.5 (0-4.9); Cholesterol 158 mg/dL (< 200); Globulin 2.9 g/dL (2.4-3.5); Glucose 121 mg/dL (70-105); HDL Cholesterol 64 mg/dL (40-59); LDL Cholesterol,Calculated 78 mg/dL (0-99); Magnesium 1.6 mg/dL (1.6-2.6); Osmolality,Calculated 282 (280-300); Phosphorous 3.1 mg/dL (2.7-4.5); Potassium 3.8 mEq/L (3.5-5.1); Sodium 136 mEq/L (136-145); Total Protein 7.3 g/dL (6.4-8.9); Triglycerides 82 mg/dL (< 150); eGFR For African Americans > 60 (> 60); eGFR For Non-African Americans > 60 (> 60)
[2017-12-08] MEDS ORDERED: amLODIPine 5 MG TABLET PO ONE (01:57)
[2017-12-08 02:19] LABS: Hemoglobin 15.5 g/dL (11.5-15.4)
[2017-12-08] MEDS: Budesonide/Formoterol 160/4.5 MDI IH SCH (07:24)
[2017-12-08] MEDS ORDERED: Magnesium Oxide 400 MG TABLET PO SCH (09:00)
[2017-12-08] MEDS ORDERED: Multivit/Ca/Min/Fe/FA 1 TAB TABLET PO SCH (09:00)
[2017-12-08] MEDS ORDERED: BuPROPion XL (24 HR) 150 MG TABLET PO SCH (09:00)
[2017-12-08] MEDS ORDERED: Aspirin Enteric Coated 81 MG Tablet PO SCH (09:00)
[2017-12-08] MEDS ORDERED: Gabapentin 300 MG CAPSULE PO SCH (09:00)
[2017-12-08] MEDS ORDERED: Lisinopril 20 MG TABLET PO SCH (09:00)
[2017-12-08] MEDS ORDERED: amLODIPine 5 MG TABLET PO SCH (09:00)
[2017-12-08] MEDS: levETIRAcetam 250 MG TABLET PO SCH (09:13)
[2017-12-08] MEDS: Clotrimazole 1% CRM 15 GM TUBE TP SCH (09:21)
[2017-12-08 10:32] VITALS: BP 135/84
--- NOTE | 2017-12-08 16:28 | Discharge Summary ---
Orders not resulted at time of discharge: Pending orders 12/07/17 20:18 Urinalysis reflex Microscopic [URIN] Routine Date of Encounter: 12/08/17 Time of Encounter: 16:24 - Discharge Diagnosis (1) Altered mental status Priority: Primary Status: Acute Qualifiers: Altered mental status type: unspecified Qualified Code(s): R41.82 - Altered mental status, unspecified (2) Seizure disorder Priority: Secondary Status: Chronic (3) COPD (chronic obstructive pulmonary disease) Priority: Secondary Status: Chronic Qualifiers: COPD type: unspecified COPD Qualified Code(s): J44.9 - Chronic obstructive pulmonary disease, unspecified Hospital course: Ms. Farris is a 72 year old female This patient lives at an assisted living facility. She was brought to the emergency room for evaluation of altered mental status/abnormal behavior. She seemed to be agitated. She had involuntary movements in her upper and lower extremities. When I saw this patient for the very first time (on the day of discharge) she was very anxious. She was pushing for discharge home. She called her sister to come to the hospital. When her sister arrived, I learned from her, that the patient is "baseline". Involuntary movements of upper and lower extremities were not seen by me. This subsided after the admission. One can see that this patient takes multiple medications, including a few psychiatric medications. I decided to stop her bupropion (Wellbutrin XR). Her seizure disorder seems to be under control. Her COPD is stable. Her other problems mentioned in history and physical are controlled/stable. Discharged to her assisted living facility. She will go with her sister. Discharge discussed with: patient, family, nurse - Time Spent with Patient Total time spent providing and/or coordinating discharge services: Greater than 30 minutes - Discharge Medications Home Medications: Adalimumab [Humira Pen] 40 mg SQ Q2W 12/09/17 [History] Alendronate Sodium [Fosamax] 70 mg PO QWEEK 12/09/17 [History] Ammonium Lactate 1 appl TP BID PRN 12/09/17 [History] Aspirin [Lo-Dose Aspirin EC] 81 mg PO DAILY 12/09/17 [History] Atorvastatin Calcium [Lipitor] 20 mg PO HS 12/09/17 [History] Budesonide/Formoterol 160/4.5 [Symbicort 160/4.5] 2 puff IH BIDR 12/09/17 [ History] Bupropion HCl [Wellbutrin Xl] 300 mg PO DAILY 12/09/17 [History] Clopidogrel [Plavix] 75 mg PO DAILY 12/09/17 [History] Ergocalciferol (VITAMIN D2) [Vitamin D2] 50,000 units PO SA 12/09/17 [History] LevETIRAcetam [Keppra] 500 mg PO BID 12/09/17 [History] Lisinopril [Zestril] 40 mg PO DAILY 12/09/17 [History] Metoprolol [Lopressor] 25 mg PO BID 12/09/17 [History] Multivitamin [One Daily Essential] 1 tab PO DAILY 12/09/17 [History] Pantoprazole Sodium [Protonix] 40 mg PO DAILY 12/09/17 [History] Suvorexant [Belsomra] 20 mg PO HS 12/09/17 [History] amLODIPine [Norvasc] 5 mg PO DAILY 12/09/17 [History] Polyethylene Glycol 3350 [MiraLAX] 17 gm PO DAILY PRN #14 powd.pack 12/10/17 [Rx ] Allergies/Adverse Reactions: 3 Allergy/AdvReac Type Severity Reaction Status Date / Time hydrocodone [From [place]] Allergy Rash Verified 04/20/15 16:45 Influenza Virus Vaccines Allergy See Verified 04/20/15 16:45 Comments Iodinated Contrast- Oral and Allergy Anaphylaxis Verified 04/20/15 12:48 IV Dye [Iodinated Contrast Media - IV Dye] Date of admission: 12/07/17 16:54 Primary care physician: Katelin Luther MD Consults: 12/07/17 17:56 Consult to Nutrition [CONS] Routine Comment: Consulting Provider: NUTRITION Reason for Dietary Consult: MST Score 12/08/17 14:37 Consult to [place] [CONS] Routine Reason for SW Consult: discharge planning Discharging clinician: Miguel Bowie Anticipated date of discharge: 12/08/17 - Constitutional Vitals: Temp Pulse Resp BP Pulse Ox 98.1 F 69 16 135/84 96 12/08/17 10:31 12/08/17 10:31 12/08/17 10:31 12/08/17 10:31 12/08/17 10:31 General appearance: Present: A&O X 3, no acute distress - Respiratory Respiratory exam: Present: CTAB. Absent: accessory muscle use, rales, rhonchi, wheezes - Cardiovascular Cardiovascular exam: Present: RRR, +S1, +S2. Absent: diastolic murmur, gallop, rubs, systolic murmur - GI/Abdominal GI/Abdominal exam: Present: normal bowel sounds, soft, no peritoneal signs. Absent: distended, tenderness - Patient Status Disposition: Home, Self-Care Condition: Good - Discharge Instructions Follow Up With: Katelin Luther MD [Primary Care Provider] - - Diet and Activity Activity: ambulate only with your walker Diet: regular diet
--- NOTE | 2017-12-08 18:59 | Electrocardiograph Report ---
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
== END 2017-12-08 18:10 | disposition home or self-care (01) ==
LOC: 3NENU 12:01 → EMEROO 12:01 → SUATTDRO 16:54 → 3NENU 17:35
PROVIDERS: ADMIT Internal Medicine Nephrology; ATTEND Internal Medicine

== ENCOUNTER 2017-12-08 22:50 | Observation (INO) ==
[2017-12-08] MEDS ORDERED: Aspirin 81 MG TAB.CHEW PO ONE (23:36)
[2017-12-09 00:16] LABS: Bilirubin,Urine Moderate (Negative); Blood,Urine Negative (Negative); Clarity,Urine Clear (Clear); Color,Urine Dark Yellow (Yellow); Glucose,Urine (UA) Normal (Normal); Ketones,Urine 15 mg/dL (Negative); Leukocyte Esterase,Urine Small (Negative); Nitrite,Urine Negative (Negative); Protein,Urine Negative (Neg-Trace); Specific Gravity,Urine 1.026 (1.010-1.025); Urobilinogen,Urine Normal (Normal)
[2017-12-09 00:18] LABS: Squamous Epithelial Cell,Urine Moderate per lpf (None-Few)
[2017-12-09 00:19] LABS: Bacteria,Urine Few per hpf (None-Few)
[2017-12-09 00:29] LABS: Amphetamine Screen,Urine Positive ng/mL (Cutoff=1000); Barbiturate Screen,Urine Negative ng/mL (Cutoff=200); Benzodiazepines Screen,Urine Negative ng/mL (Cutoff=200); Cannabinoid Screen,Urine Negative ng/mL (Cutoff = 50); Cocaine Screen,Urine Negative ng/mL (Cutoff= 300); Opiate Screen,Urine Negative ng/mL (Cutoff=300); Phencyclidine Screen,Urine Negative ng/mL (Cutoff=25)
[2017-12-09 00:29] LABS: Basophils % 0.3 %; Eosinophils # 0.2 K/mcL (0.0-0.6); Eosinophils % 1.3 %; Hematocrit 44.6 % (35.3-44.9); Hemoglobin 15.5 g/dL (11.5-15.4); Immature Granulocytes % 0.4 % (0-4); Lymphocytes # 3.1 K/mcL (0.6-4.6); Lymphocytes % 22.2 %; Mean Corpuscular HGB Conc 34.8 g/dL (31.6-35.5); Mean Corpuscular Hemoglobin 30.9 pg (28.0-33.3); Mean Platelet Volume 11.3 fL (9.4-12.4); Monocytes # 1.4 K/mcL (0.0-1.3); Monocytes % 9.7 %; Neutrophils # 9.3 K/mcL (1.6-8.9); Platelet Count 221 K/mcL (140-400); Red Blood Count 5.01 M/mcL (3.82-4.97); Red Cell Distribution Width 12.1 % (11.5-14.5); Segmented Neutrophils % 66.1 %
[2017-12-09 00:44] LABS: Acetaminophen < 10 mcg/mL (10-20); BUN/Creatinine Ratio 16 (6-26); Blood Urea Nitrogen 13 mg/dL (8-23); Calcium 10.3 mg/dL (8.6-10.3); Carbon Dioxide 20 mEq/L (23-29); Chloride 108 mEq/L (98-107); Ethanol < 10 mg/dL (Less than 10); Glucose 108 mg/dL (70-105); Osmolality,Calculated 285 (280-300); Potassium 3.9 mEq/L (3.5-5.1); Salicylate < 2.5 mg/dL (15.0-30.0); Sodium 137 mEq/L (136-145); eGFR For African Americans > 60 (> 60); eGFR For Non-African Americans > 60 (> 60)
--- NOTE | 2017-12-09 01:28 | Emergency Department Note ---
Disposition Clinical Impression: Acute psychosis Disposition: Admitted As Inpatient Condition: Fair General Adult HPI - General Chief complaint: ED Psychiatric Symptoms Stated complaint: poss drug interaction Time Seen by Provider: 12/08/17 23:08 Source: family, EMS Limitations: altered mental status Nursing Notes Reviewed: Yes Vital Signs Reviewed: Yes - History of Present Illness HPI Narrative: 72-year-old female presents emergency Department with concerns of hallucinations. Patient was just evaluated for similar symptoms and discharged from the hospital about 5 hours prior to arrival to the emergency department. Patient states she felt well when she went home, she took her nighttime medications and she started to have hallucinations. Patient was seeing a large amount of blood in and around the house. She called her neighbors to did not see the bugs. She became agitated. Neighbors called EMS and sister encouraged her to be evaluated in the emergency department. In the emergency Department she is not seeing insects on the [place] however she is seeing people that are not present. She became agitated when she thought these hallucinations were laughing at her. Pain Scale: 0 - Related Data Home Medications Medication Instructions Recorded Confirmed Adalimumab [Humira Pen Crohn-Uc-Hs 40 mg SQ Q2W 04/20/15 12/07/17 Starter] Albuterol Sulfate [Ventolin Hfa] 2 puff IH Q4H PRN 04/20/15 12/07/17 Atorvastatin Calcium [Lipitor] 20 mg PO HS 04/20/15 12/07/17 Budesonide/Formoterol 160/4.5 2 puff IH BIDR 04/20/15 12/07/17 [Symbicort] Ergocalciferol (VITAMIN D2) 50,000 unit PO SA 04/20/15 12/07/17 [Vitamin D2 (50,000 UNIT)] Gabapentin [Neurontin] 600 mg PO HS 04/20/15 12/07/17 LevETIRAcetam [Keppra] 500 mg PO Q12H 04/20/15 12/07/17 Multivitamin/Iron/Folic Acid 1 each PO DAILY 04/20/15 12/07/17 [Centrum Complete Multivit Tab] Pantoprazole Sodium [Protonix] 40 mg PO DAILY 04/20/15 12/07/17 Sertraline [Zoloft] 100 mg PO DAILY 04/20/15 12/07/17 Ammonium Lactate 1 appl TP BID PRN 02/04/17 12/07/17 Betamethasone Dipropionate 1 appl TP BID 02/04/17 12/07/17 Ciclopirox 1 appl TP BID 02/04/17 12/07/17 Gabapentin [Neurontin] 300 mg PO BID 02/04/17 12/07/17 Magnesium 250 mg PO DAILY 02/04/17 12/07/17 Polyethylene Glycol 3350 [MiraLAX] 17 gm PO DAILY 02/04/17 12/07/17 Suvorexant [Belsomra] 20 mg PO HS PRN 02/04/17 12/07/17 Ibuprofen [Motrin] 800 mg PO TID PRN 05/08/17 12/07/17 Metoprolol [Lopressor] 25 mg PO BID 05/08/17 12/07/17 Alendronate Sodium [Fosamax] 70 mg PO QWEEK 12/07/17 12/07/17 Previous Rx's Medication Instructions Recorded Aspirin Enteric Coated [Aspirin EC] 81 mg PO DAILY #14 tablet. 04/21/15 Clopidogrel [Plavix] 75 mg PO DAILY #14 tablet 04/21/15 Lisinopril [Zestril] 40 mg PO DAILY #60 tab 02/05/17 amLODIPine [Norvasc] 5 mg PO DAILY #30 tab 02/05/17 Allergies Allergy/AdvReac Type Severity Reaction Status Date / Time hydrocodone [From [place]] Allergy Rash Verified 04/20/15 16:45 Influenza Virus Vaccines Allergy See Verified 04/20/15 16:45 Comments Iodinated Contrast- Oral and Allergy Anaphylaxis Verified 04/20/15 12:48 IV Dye [Iodinated Contrast Media - IV Dye] All systems ED: reviewed and negative except as stated. Review of Systems: As Per HPI Past Medical History - Past Medical History Attestation: Yes The following information was validated with the patient. Source: patient Medical history: Reports: CHF, coronary artery disease, CVA, GERD, hyperlipidemia, hypertension, myocardial infarction, pulmonary embolus, seizures , other Surgical history: Reports: appendectomy, cholecystectomy, hysterectomy, other Psychiatric history: Reports: ADHD, depression - Social History Smoking Status: Current every day smoker Smokeless Tobacco Status: No Alcohol use: Reports: none Drug use: Reports: none Physical Exam General: Alert and in no acute distress Skin: Warm, dry, intact Head: Normocephalic and atraumatic Neck: Supple, trachea midline and no tenderness Cardiovascular: RRR, no murmur, normal perfusion Respiratory: CTAB, no wheezing, cough, or respiratory distress Musculoskeletal: Normal strength, no tenderness, swelling or deformity GI: Soft, nontender, nondistended. Bowel sounds present Neuro: No focal deficits noted on exam. - General Limitations: altered mental status General appearance: alert Course Vital Signs Temperature 97.2 F L 12/08/17 22:52 Pulse Rate 64 12/08/17 22:52 Respiratory Rate 20 12/08/17 22:52 Blood Pressure 155/96 12/08/17 22:52 O2 Sat by Pulse Oximetry 96 12/08/17 22:52 Temperature 97.2 F L 12/08/17 22:52 Pulse Rate 64 12/08/17 22:52 Respiratory Rate 20 12/08/17 22:52 Blood Pressure 155/96 12/08/17 22:52 O2 Sat by Pulse Oximetry 96 12/08/17 22:52 Oxygen Delivery Oxygen Delivery Room Air Medical Decision Making - [facility] Narrative Medical decision making narrative: Likely patient is having an adverse drug effect as she was normal prior to going home and suddenly had to have repeat of her symptoms. Patient will be admitted to hospital for further care and evaluation. - Medical Records Medical records reviewed: Yes I reviewed the patient's medical records. - Lab Data Lab results reviewed: Yes I reviewed the patient's lab results. Result diagrams: 12/09/17 00:13 12/09/17 00:13 Lab Results 12/09/17 12/09/17 12/09/17 Range/Units 00:05 00:05 00:13 WBC 14.1 H (4.3-11.1) K/mcL RBC 5.01 H (3.82-4.97) M/mcL Hgb 15.5 H (11.5-15.4) g/dL Hct 44.6 (35.3-44.9) % MCV 89.0 (83.0-100.0) fL MCH 30.9 (28.0-33.3) pg MCHC 34.8 (31.6-35.5) g/dL RDW 12.1 (11.5-14.5) % Plt Count 221 (140-400) K/mcL MPV 11.3 (9.4-12.4) fL Immature Gran % 0.4 (0-4) % Seg Neutrophils % 66.1 % Lymphocytes % 22.2 % Monocytes % 9.7 % Eosinophils % 1.3 % Basophils % 0.3 % Neutrophils # 9.3 H (1.6-8.9) K/mcL Lymphocytes # 3.1 (0.6-4.6) K/mcL Monocytes # 1.4 H (0.0-1.3) K/mcL Eosinophils # 0.2 (0.0-0.6) K/mcL Basophils # 0.0 (0.0-0.2) K/mcL Sodium (136-145) mEq/L Potassium (3.5-5.1) mEq/L Chloride (98-107) mEq/L Carbon Dioxide (23-29) mEq/L BUN (8-23) mg/dL Creatinine (0.60-1.20) mg/dL Est GFR ( Amer) (> 60) Est GFR (Non-Af Amer) (> 60) BUN/Creatinine Ratio (6-26) Glucose (70-105) mg/dL Calculated Osmolality (280-300) Calcium (8.6-10.3) mg/dL Ur Specimen Adequacy See below A Urine Color Dark Yellow (Yellow) Urine Clarity Clear (Clear) Urine pH 6.0 (5.0-8.0) pH Units Ur Specific [place] 1.026 H (1.010-1.025) Urine Protein Negative (Neg-Trace) mg/dL Urine Glucose (UA) Normal (Normal) mg/dL Urine Ketones 15 H (Negative) mg/dL Urine Blood Negative (Negative) Urine Nitrite Negative (Negative) Urine Bilirubin Moderate H (Negative) Urine Urobilinogen Normal (Normal) mg/dL Ur Leukocyte Esterase Small H (Negative) Urine Microscopic WBC 3-5 H (0-3) per hpf Ur Squamous Epith Cells Moderate H (None-Few) per lpf Urine Bacteria Few (None-Few) per hpf Salicylates (15.0-30.0) mg/dL Urine Opiates Screen Negative (Ehbyyb=515) ng/mL Acetaminophen (10-20) mcg/mL Ur Barbiturates Screen Negative (Zhdubs=059) ng/mL Ur Phencyclidine Scrn Negative (Cutoff=25) ng/mL Ur Amphetamines Screen Positive H (Yltptn=2790) ng/mL U Benzodiazepines Scrn Negative (Vwbbaf=624) ng/mL Urine Cocaine Screen Negative (Cutoff= 300) ng/mL U Marijuana (THC) Screen Negative (Cutoff = 50) ng/mL Ur Drug Screen Interp See Below Ethyl Alcohol (Less than 10) mg/dL 12/09/17 Range/Units 00:13 WBC (4.3-11.1) K/mcL RBC (3.82-4.97) M/mcL Hgb (11.5-15.4) g/dL Hct (35.3-44.9) % MCV (83.0-100.0) fL MCH (28.0-33.3) pg MCHC (31.6-35.5) g/dL RDW (11.5-14.5) % Plt Count (140-400) K/mcL MPV (9.4-12.4) fL Immature Gran % (0-4) % Seg Neutrophils % % Lymphocytes % % Monocytes % % Eosinophils % % Basophils % % Neutrophils # (1.6-8.9) K/mcL Lymphocytes # (0.6-4.6) K/mcL Monocytes # (0.0-1.3) K/mcL Eosinophils # (0.0-0.6) K/mcL Basophils # (0.0-0.2) K/mcL Sodium 137 (136-145) mEq/L Potassium 3.9 (3.5-5.1) mEq/L Chloride 108 H (98-107) mEq/L Carbon Dioxide 20 L (23-29) mEq/L BUN 13 (8-23) mg/dL Creatinine 0.82 (0.60-1.20) mg/dL Est GFR ( Amer) > 60 (> 60) Est GFR (Non-Af Amer) > 60 (> 60) BUN/Creatinine Ratio 16 (6-26) Glucose 108 H (70-105) mg/dL Calculated Osmolality 285 (280-300) Calcium 10.3 (8.6-10.3) mg/dL Ur Specimen Adequacy Urine Color (Yellow) Urine Clarity (Clear) Urine pH (5.0-8.0) pH Units Ur Specific [place] (1.010-1.025) Urine Protein (Neg-Trace) mg/dL Urine Glucose (UA) (Normal) mg/dL Urine Ketones (Negative) mg/dL Urine Blood (Negative) Urine Nitrite (Negative) Urine Bilirubin (Negative) Urine Urobilinogen (Normal) mg/dL Ur Leukocyte Esterase (Negative) Urine Microscopic WBC (0-3) per hpf Ur Squamous Epith Cells (None-Few) per lpf Urine Bacteria (None-Few) per hpf Salicylates < 2.5 L (15.0-30.0) mg/dL Urine Opiates Screen (Ghrbfq=307) ng/mL Acetaminophen < 10 L (10-20) mcg/mL Ur Barbiturates Screen (Silmmh=906) ng/mL Ur Phencyclidine Scrn (Cutoff=25) ng/mL Ur Amphetamines Screen (Gzpger=6470) ng/mL U Benzodiazepines Scrn (Jzwvru=881) ng/mL Urine Cocaine Screen (Cutoff= 300) ng/mL U Marijuana (THC) Screen (Cutoff = 50) ng/mL Ur Drug Screen Interp Ethyl Alcohol < 10 (Less than 10) mg/dL
--- NOTE | 2017-12-09 06:38 | Internal Med History&Physical ---
Date of Encounter: 12/09/17 Time of Encounter: 04:00 Internal Medicine - H&P: HPI Chief complaint: Confusion Admitted From: Emergency Dept Plans for Post Hospital Care: Home History of present illness: Ms. Farris is a 72 year old female with past medical history of stroke, patient is legally blind. Patient was recently admitted to the hospital discharge. Yesterday after life and home patient has not had migraine headache she took her medication due to patient was so confused patient stated that she was seeing many ants, had some delusions about talking to her father's about this incident. Patient was talking to neighbor's about blood around the house. Patient brought by ambulance for further evaluation. Patient denies taking any new medication. Patient denies any fall. Patient denies any fever or chills. Patient complain of dry cough, patient stated she has occasional episodes of choking when she ate. Patient denies any loss of consciousness. Patient complaining of chronic constipation may be having bowel movement every 4 days. Markedly diminished oral intake of fluid. Patient stated sometimes she has shocking sensation when she ate Past Med Surg Social Fam HX - Past Medical History Medical history: CHF, coronary artery disease, CVA, GERD, hyperlipidemia, hypertension, myocardial infarction, pulmonary embolus, seizures, other Additional medical history: guillian barre, legally blind Psychiatric history: ADHD, depression - Past Surgical History Surgical History: appendectomy, cholecystectomy, hysterectomy, other Additional surgical history: tumor removed from small intestine - Social History Smoking Status: Current every day smoker Smokeless Tobacco Status: No Alcohol use: none Drug use: none - Family History Father Living Status: Hx Family Cardiac Disorders: Yes Mother Living Status: Hx Family Cardiac Disorders: Yes Internal Medicine - H&P: Meds Adalimumab [Humira Pen Crohn-Uc-Hs Starter] 40 mg SQ Q2W 04/20/15 [History] Albuterol Sulfate [Ventolin Hfa] 2 puff IH Q4H PRN 04/20/15 [History] Atorvastatin Calcium [Lipitor] 20 mg PO HS 04/20/15 [History] Budesonide/Formoterol 160/4.5 [Symbicort] 2 puff IH BIDR 04/20/15 [History] Ergocalciferol (VITAMIN D2) [Vitamin D2 (50,000 UNIT)] 50,000 unit PO SA [History] Gabapentin [Neurontin] 600 mg PO HS 04/20/15 [History] LevETIRAcetam [Keppra] 500 mg PO Q12H 04/20/15 [History] Multivitamin/Iron/Folic Acid [Centrum Complete Multivit Tab] 1 each PO DAILY [History] Pantoprazole Sodium [Protonix] 40 mg PO DAILY 04/20/15 [History] Sertraline [Zoloft] 100 mg PO DAILY 04/20/15 [History] Aspirin Enteric Coated [Aspirin EC] 81 mg PO DAILY #14 tablet. 04/21/15 [Rx] Clopidogrel [Plavix] 75 mg PO DAILY #14 tablet 04/21/15 [Rx] Ammonium Lactate 1 appl TP BID PRN 02/04/17 [History] Betamethasone Dipropionate 1 appl TP BID 02/04/17 [History] Ciclopirox 1 appl TP BID 02/04/17 [History] Gabapentin [Neurontin] 300 mg PO BID 02/04/17 [History] Magnesium 250 mg PO DAILY 02/04/17 [History] Polyethylene Glycol 3350 [MiraLAX] 17 gm PO DAILY 02/04/17 [History] Suvorexant [Belsomra] 20 mg PO HS PRN 02/04/17 [History] Lisinopril [Zestril] 40 mg PO DAILY #60 tab 02/05/17 [Rx] amLODIPine [Norvasc] 5 mg PO DAILY #30 tab 02/05/17 [Rx] Ibuprofen [Motrin] 800 mg PO TID PRN 05/08/17 [History] Metoprolol [Lopressor] 25 mg PO BID 05/08/17 [History] Alendronate Sodium [Fosamax] 70 mg PO QWEEK 12/07/17 [History] 3 Allergy/AdvReac Type Severity Reaction Status Date / Time hydrocodone [From [place]] Allergy Rash Verified 04/20/15 16:45 Influenza Virus Vaccines Allergy See Verified 04/20/15 16:45 Comments Iodinated Contrast- Oral and Allergy Anaphylaxis Verified 04/20/15 12:48 IV Dye [Iodinated Contrast Media - IV Dye] All Systems PM: A 10-system review of systems was performed and is negative for pertinent findings except as documented above in the HPI. - Constitutional Vitals: Temp Pulse Resp BP Pulse Ox 97.5 F L 71 15 181/88 97 12/09/17 03:55 12/09/17 03:55 12/09/17 03:55 12/09/17 03:55 12/09/17 03:55 - Head Head exam: Present: atraumatic, normocephalic - Neck Neck exam general surgery: Present: supple, trachea midline. Absent: lymphadenopathy - Respiratory Respiratory exam: Present: decreased breath sounds, rales (Bilateral basilar Rales). Absent: accessory muscle use, rhonchi, wheezes - Cardiovascular Cardiovascular exam: Present: RRR, +S1, +S2. Absent: diastolic murmur, gallop, rubs, systolic murmur - GI/Abdominal GI/Abdominal exam: Present: normal bowel sounds, soft, no peritoneal signs. Absent: distended, tenderness - Extremities Exam Extremities exam: Present: warm, radial pulses palpable and symmetrical. Absent : calf tenderness, cyanotic, pedal edema - Neurological Exam Neurological exam: Present: CN II-XII intact, oriented X3. Absent: pronater drift, facial droop, speech deficit - Skin Skin exam: Present: dry, intact Internal Med - H&P Results - Labs CBC & Chem 7: 12/09/17 00:13 12/09/17 00:13 - Assessment and plan (1) Delirium Current Visit: Yes Status: Acute (2) Constipation Current Visit: Yes Status: Acute Qualifiers: Constipation type: slow transit constipation Qualified Code(s): K59.01 - Slow transit constipation (3) Volume depletion Current Visit: Yes Status: Acute (4) UTI (urinary tract infection) Current Visit: Yes Status: Acute Qualifiers: Urinary tract infection type: site unspecified Hematuria presence: without hematuria Qualified Code(s): N39.0 - Urinary tract infection, site not specified (5) Dysphagia Current Visit: Yes Status: Acute Assessment and plan: Speech evaluation, check chest x-ray to rule out aspiration pneumonia Qualifiers: Dysphagia type: unspecified Qualified Code(s): R13.10 - Dysphagia, unspecified - Time Spent With Patient Plan Patient delirium most likely secondary to multifactorial 1 severe constipation no bowel movement for 4 days #2 is urinary tract infection in addition to volume depletion counseling patient about ordered fluid counseling patient about laxative close monitoring patient condition . Patient is legally blind visual hallucinations could be secondary to her visual problem with progressive macular degeneration patient could have visual hallucination is this is a case patient need to be admitted to ECF. Or could be an assisted-living, we will start empiric and pruritic coverage for possible UTI at add ciprofloxacin, gentle hydration, with add laxative. Counseling on oral fluid Total time spent is greater than 50% in coordination of care (as documented) at patient's floor/unit and/or counseling patient:
[2017-12-09] MEDS ORDERED: Naloxone 0.4 MG/ML INJ IVP PRN (06:48)
[2017-12-09] MEDS ORDERED: Thiamine (B-1) 100 MG in D5% in Water 50 ML IVPB ONE (06:50)
[2017-12-09] MEDS ORDERED: Levofloxacin 500 MG/100 ML 500 MG/100 ML BAG IVPB SCH (07:00)
[2017-12-09 07:52] LABS: Hematocrit 45.1 % (35.3-44.9); Hemoglobin 15.2 g/dL (11.5-15.4); Mean Corpuscular HGB Conc 33.7 g/dL (31.6-35.5); Mean Corpuscular Hemoglobin 30.2 pg (28.0-33.3); Mean Corpuscular Volume 89.5 fL (83.0-100.0); Platelet Count 152 K/mcL (140-400); Red Blood Count 5.04 M/mcL (3.82-4.97); Red Cell Distribution Width 12.2 % (11.5-14.5)
[2017-12-09 08:14] LABS: BUN/Creatinine Ratio 20 (6-26); Blood Urea Nitrogen 13 mg/dL (8-23); Calcium 10.2 mg/dL (8.6-10.3); Carbon Dioxide 19 mEq/L (23-29); Chol/HDL Ratio 2.6 (0-4.9); Cholesterol 172 mg/dL (< 200); Glucose 115 mg/dL (70-105); HDL Cholesterol 67 mg/dL (40-59); LDL Cholesterol,Calculated 88 mg/dL (0-99); Magnesium 1.7 mg/dL (1.6-2.6); Phosphorous 2.9 mg/dL (2.7-4.5); Triglycerides 87 mg/dL (< 150); eGFR For African Americans > 60 (> 60); eGFR For Non-African Americans > 60 (> 60)
[2017-12-09] MEDS: 0.9 % Sodium Chloride 1,000 ML IVC SCH ×2 (08:20→18:58)
[2017-12-09] MEDS: Thiamine (B-1) 100 MG TABLET PO SCH (08:21)
[2017-12-09 08:39] LABS: Chloride 107 mEq/L (98-107); Osmolality,Calculated 283 (280-300); Potassium 4.2 mEq/L (3.5-5.1); Sodium 136 mEq/L (136-145)
[2017-12-09] MEDS ORDERED: cefTRIAXone 1,000 MG in Water for inj. (sterile) 20 ML 10 ML IVP ONE (13:52)
[2017-12-09] MEDS ORDERED: Ammonium Lactate 30 APPL/225 GM BOTTLE TP PRN (14:46)
--- NOTE | 2017-12-09 14:46 | Internal Med Progress Note ---
Date of Encounter: 12/09/17 Time of Encounter: 09:30 - Assessment and plan (1) Delirium Current Visit: Yes Status: Acute Assessment and plan: Currently denies any of the hallucinations that she reported yesterday May have been attributed to mild dehydration, UTI. Received IVF and Rocephin overnight -> low suspicion for UTI, will d/c rocephin Constipation can also contribute to delirium, start daily miralax and ensure daily BM Appears paranoid, suspect underlying MCI/dementia lives alone, just readmitted 6 hours after the discharge social work consult for placement (2) Constipation Current Visit: Yes Status: Acute Assessment and plan: miralax daily ensure daily BM Qualifiers: Constipation type: slow transit constipation Qualified Code(s): K59.01 - Slow transit constipation (3) Volume depletion Current Visit: Yes Status: Acute Assessment and plan: IVF (4) UTI (urinary tract infection) Current Visit: Yes Status: Acute Assessment and plan: 1 dose of [place] monitor off abx Qualifiers: Urinary tract infection type: site unspecified Hematuria presence: without hematuria Qualified Code(s): N39.0 - Urinary tract infection, site not specified (5) Dysphagia Current Visit: Yes Status: Acute Assessment and plan: mechanically altered diet, expect to get better with resolution of #1 follow with speech therapy Qualifiers: Dysphagia type: unspecified Qualified Code(s): R13.10 - Dysphagia, unspecified - Time Spent With Patient Total time spent is greater than 50% in coordination of care (as documented) at patient's floor/unit and/or counseling patient: - Subjective Interval history: Aware of the fact that she is in the hospital, denies hallucinating yesterday. Appears paranoid with her neighbors and insist to go home [place]. No chest pain, SOB, dysuria, abdominal pain, diarrhea - Constitutional Vitals: Temp Pulse Resp BP Pulse Ox 98.2 F 69 16 164/84 96 12/09/17 10:56 12/09/17 10:56 12/09/17 10:56 12/09/17 10:56 12/09/17 10:56 Exam: General: Alert, oriented to time, place but not to person. HEENT:EOM, pupils equal, round, and reactive. Cardiovascular:Normal S1 & S2, no murmurs or gallops. No JVD. Pulse regular. Lungs:Normal breath sounds, no wheezes or crackles. Abdomen:Soft, non-tender, no rigidity. Neurological:Normal motor skills. Skin:Normal color, no rash, no lesions. Rest of the physical exam is non-contributory Internal Medicine: Result - Labs CBC & Chem 7: 12/09/17 07:24 12/09/17 07:24 Labs: Short CBC 12/09/17 Range/Units 07:24 WBC 10.4 (4.3-11.1) K/mcL Hgb 15.2 (11.5-15.4) g/dL Hct 45.1 H (35.3-44.9) % Plt Count 152 (140-400) K/mcL [facility] 12/09/17 07:24 Sodium 136 Potassium 4.2 Chloride 107 Carbon Dioxide 19 L BUN 13 Creatinine 0.66 Glucose 115 H Calcium 10.2 Consult Discharge Plan - Plan Referrals: NONE,PCP [Non-Partnered Physician] -
[2017-12-09] MEDS ORDERED: Ipratropium/Albuterol Neb 3 ML IH PRN (14:49)
[2017-12-09] MEDS: Budesonide/Formoterol 160/4.5 MDI IH SCH (19:42)
[2017-12-09] MEDS ORDERED: Acetaminophen 325 MG TABLET PO ONE (19:53)
[2017-12-09] MEDS: levETIRAcetam 250 MG TABLET PO SCH (20:44)
[2017-12-10] MEDS ORDERED: Furosemide 40 MG/4 ML VIAL IVP ONE (03:40)
[2017-12-10] MEDS ORDERED: Furosemide 40 MG/4 ML VIAL ONE (04:10)
[2017-12-10] MEDS: Budesonide/Formoterol 160/4.5 MDI IH SCH (07:37)
[2017-12-10] MEDS ORDERED: Lisinopril 20 MG TABLET PO SCH (09:00)
[2017-12-10] MEDS ORDERED: BuPROPion XL (24 HR) 150 MG TABLET PO SCH (09:00)
[2017-12-10] MEDS ORDERED: amLODIPine 5 MG TABLET PO SCH (09:00)
[2017-12-10] MEDS ORDERED: Aspirin Enteric Coated 81 MG Tablet PO SCH (09:00)
[2017-12-10] MEDS ORDERED: Multivit/Ca/Min/Fe/FA 1 TAB TABLET PO SCH (09:00)
--- NOTE | 2017-12-10 10:19 | Discharge Summary ---
Date of Encounter: 12/10/17 Time of Encounter: 09:00 - Discharge Diagnosis (1) Delirium Priority: Primary Status: Acute (2) Constipation Priority: Secondary Status: Acute Qualifiers: Constipation type: slow transit constipation Qualified Code(s): K59.01 - Slow transit constipation (3) Volume depletion Priority: Secondary Status: Acute (4) UTI (urinary tract infection) Priority: Secondary Status: Acute Qualifiers: Urinary tract infection type: site unspecified Hematuria presence: without hematuria Qualified Code(s): N39.0 - Urinary tract infection, site not specified (5) Dysphagia Priority: Secondary Status: Acute Qualifiers: Dysphagia type: unspecified Qualified Code(s): R13.10 - Dysphagia, unspecified Hospital course: Ms. Farris is a 72 year old female with PMHx of stroke, legally blind, was readmitted to the hospital for visual hallucination. Happened after she was discharged back home. It was attributed to mild volume depletion, constipation, and ?UTI. Treated with IVF, miralax, and rocephin with clinical improvement. We attempted to look for assisted living facility but she was alert and oriented and adamantly refused to be placed at [facility]. She has [facility] services in place which includes nursing 2 days a week through [facility] and aides 6 hours a day, M-F through [facility]. Discharge discussed with: patient, social work, case management - Time Spent with Patient Total time spent providing and/or coordinating discharge services: Greater than 30 minutes - Discharge Medications Prescriptions: Polyethylene Glycol 3350 [MiraLAX] 17 gm PO DAILY PRN #14 powd.pack PRN Reason: Constipation Home Medications: Adalimumab [Humira Pen] 40 mg SQ Q2W 12/09/17 [History] Alendronate Sodium [Fosamax] 70 mg PO QWEEK 12/09/17 [History] Ammonium Lactate 1 appl TP BID PRN 12/09/17 [History] Aspirin [Lo-Dose Aspirin EC] 81 mg PO DAILY 12/09/17 [History] Atorvastatin Calcium [Lipitor] 20 mg PO HS 12/09/17 [History] Budesonide/Formoterol 160/4.5 [Symbicort 160/4.5] 2 puff IH BIDR 12/09/17 [ History] Bupropion HCl [Wellbutrin Xl] 300 mg PO DAILY 12/09/17 [History] Clopidogrel [Plavix] 75 mg PO DAILY 12/09/17 [History] Ergocalciferol (VITAMIN D2) [Vitamin D2] 50,000 units PO SA 12/09/17 [History] LevETIRAcetam [Keppra] 500 mg PO BID 12/09/17 [History] Lisinopril [Zestril] 40 mg PO DAILY 12/09/17 [History] Metoprolol [Lopressor] 25 mg PO BID 12/09/17 [History] Multivitamin [One Daily Essential] 1 tab PO DAILY 12/09/17 [History] Pantoprazole Sodium [Protonix] 40 mg PO DAILY 12/09/17 [History] Suvorexant [Belsomra] 20 mg PO HS 12/09/17 [History] amLODIPine [Norvasc] 5 mg PO DAILY 12/09/17 [History] Polyethylene Glycol 3350 [MiraLAX] 17 gm PO DAILY PRN #14 powd.pack 12/10/17 [Rx ] Allergies/Adverse Reactions: 3 Allergy/AdvReac Type Severity Reaction Status Date / Time hydrocodone [From [place]] Allergy Rash Verified 04/20/15 16:45 Influenza Virus Vaccines Allergy See Verified 04/20/15 16:45 Comments Iodinated Contrast- Oral and Allergy Anaphylaxis Verified 04/20/15 12:48 IV Dye [Iodinated Contrast Media - IV Dye] Date of admission: 12/09/17 03:21 Primary care physician: Katelin Luther MD Consults: 12/09/17 05:19 Consult to Nutrition [CONS] Routine Comment: Consulting Provider: NUTRITION Reason for Dietary Consult: MST Score - Constitutional Vitals: Temp Pulse Resp BP Pulse Ox 98.0 F 74 14 148/86 97 12/10/17 08:00 12/10/17 08:00 12/10/17 08:00 12/10/17 08:00 12/10/17 08:00 Exam: General: Alert, oriented to time, place but not to person. HEENT:EOM, pupils equal, round, and reactive. Cardiovascular:Normal S1 & S2, no murmurs or gallops. No JVD. Pulse regular. Lungs:Normal breath sounds, no wheezes or crackles. Abdomen:Soft, non-tender, no rigidity. Neurological:Normal motor skills. Skin:Normal color, no rash, no lesions. Rest of the physical exam is non-contributory - Patient Status Disposition: Home Health Service Condition: Fair Overall status at discharge: patient is progressing back to baseline - Discharge Instructions Instructions: Urinary Tract Infection in Women (DC) Follow Up With: NONE,PCP [Non-Partnered Physician] - - Diet and Activity Activity: as per physical therapy Diet: advance to your usual diet
[2017-12-10] MEDS: levETIRAcetam 250 MG TABLET PO SCH (10:20)
[2017-12-10] MEDS: Thiamine (B-1) 100 MG TABLET PO SCH (10:20)
--- NOTE | 2017-12-10 12:14 | Physician Discharge Referral ---
Home Health/Hosp Referral Info Transfer to: Home Health - Diagnosis (1) Delirium Priority: Primary Status: Acute (2) Constipation Priority: Secondary Status: Acute (3) Volume depletion Priority: Secondary Status: Acute (4) UTI (urinary tract infection) Priority: Secondary Status: Acute (5) Dysphagia Priority: Secondary Status: Acute - Respiratory Orders Smoking Cessation: Smoking cessation has been advised. For more information, call the [place] Tobacco Quit Line at 4-019-YBVD-NOW. - Services Needed Following services are medically necessary services: Nursing, Home Health Aide - Transfer Medications Prescriptions: Polyethylene Glycol 3350 [MiraLAX] 17 gm PO DAILY PRN #14 powd.pack PRN Reason: Constipation Home Medications: Adalimumab [Humira Pen] 40 mg SQ Q2W 12/09/17 [History] Alendronate Sodium [Fosamax] 70 mg PO QWEEK 12/09/17 [History] Ammonium Lactate 1 appl TP BID PRN 12/09/17 [History] Aspirin [Lo-Dose Aspirin EC] 81 mg PO DAILY 12/09/17 [History] Atorvastatin Calcium [Lipitor] 20 mg PO HS 12/09/17 [History] Budesonide/Formoterol 160/4.5 [Symbicort 160/4.5] 2 puff IH BIDR 12/09/17 [ History] Bupropion HCl [Wellbutrin Xl] 300 mg PO DAILY 12/09/17 [History] Clopidogrel [Plavix] 75 mg PO DAILY 12/09/17 [History] Ergocalciferol (VITAMIN D2) [Vitamin D2] 50,000 units PO SA 12/09/17 [History] LevETIRAcetam [Keppra] 500 mg PO BID 12/09/17 [History] Lisinopril [Zestril] 40 mg PO DAILY 12/09/17 [History] Metoprolol [Lopressor] 25 mg PO BID 12/09/17 [History] Multivitamin [One Daily Essential] 1 tab PO DAILY 12/09/17 [History] Pantoprazole Sodium [Protonix] 40 mg PO DAILY 12/09/17 [History] Suvorexant [Belsomra] 20 mg PO HS 12/09/17 [History] amLODIPine [Norvasc] 5 mg PO DAILY 12/09/17 [History] Polyethylene Glycol 3350 [MiraLAX] 17 gm PO DAILY PRN #14 powd.pack 12/10/17 [Rx ] Allergies/Adverse Reactions: 3 Allergy/AdvReac Type Severity Reaction Status Date / Time hydrocodone [From [place]] Allergy Rash Verified 04/20/15 16:45 Influenza Virus Vaccines Allergy See Verified 04/20/15 16:45 Comments Iodinated Contrast- Oral and Allergy Anaphylaxis Verified 04/20/15 12:48 IV Dye [Iodinated Contrast Media - IV Dye] Certification: Further, I certify that my clinical findings support that this patient is homebound (i.e. absences from home require considerable and taxing effort and are for medical reasons or nondenominational services or infrequently or short duration when for other reasons) because: Homebound Reason: Altered mental status requiring supervision when leaving home Attestation: My signature below is to certify that this patient is under my care and that I, or nurse practitioner, or a physician's social science research assistant working with me, has a face-to -face encounter with this patient.
[2017-12-10 14:43] VITALS: BP 155/87
== END 2017-12-10 15:29 | disposition home health service (06) ==
LOC: EMEROO 22:50 → 3ANU 22:50 → SUATTDRO 12-09 03:21 → 3ANU 12-09 03:49
PROVIDERS: ADMIT Internal Medicine; ATTEND Internal Medicine

== ENCOUNTER 2017-12-27 16:09 | Inpatient (IN) ==
--- NOTE | 2017-12-27 16:33 | Emergency Department Note ---
Disposition Clinical Impression: Altered mental status Qualifiers: Altered mental status type: unspecified Qualified Code(s): R41.82 - Altered mental status, unspecified Disposition: Still a Patient Referrals: Katelin Luther MD [Primary Care Provider] - Forms: ED Satisfaction Letter Altered Mental Status HPI - General Chief Complaint: ED Altered Mental Status Stated Complaint: Confusion Time Seen by Provider: 12/27/17 16:23 Source: EMS Mode of arrival: EMS Limitations: altered mental status Nursing Notes Reviewed: Yes Vital Signs Reviewed: Yes - History of Present Illness HPI Narrative: Patient is a 72-year-old female with past medical history including hypertension , seizures presents with a chief complaint of altered mental status that started this morning. Unable to get a good history secondary to patient's confusion. History obtained from EMS and past medical records. The patient was admitted on December 16 with altered mental status and delusions. She was discharged on the . During that stay she was found to be positive with amphetamine but is not prescribed with amphetamine. EEG was normal. There is no electrolyte abnormalities. There is concern for possible urinary tract infection which she received Rocephin during her stay. At the time Wellbutrin was discontinued and no other changes to her medicine regimen. She also has a history of frequent falls and prior visits for altered mental status as well. Per EMS report, the patient's sister called EMS today for altered mental status and increased deep stiffness and weakness. The patient states she fell yesterday and is complaining of left hip and low back pain. She is still able to ambulate. She denies taking anything for pain. She denies headaches, chest pain, shortness of breath, abdominal pain, nausea, dysuria, diarrhea. - Related Data Home Medications Medication Instructions Recorded Confirmed Adalimumab [Humira Pen] 40 mg SQ Q2W 12/09/17 12/16/17 Alendronate Sodium [Fosamax] 70 mg PO QWEEK 12/09/17 12/16/17 Ammonium Lactate 1 appl TP BID PRN 12/09/17 12/16/17 Aspirin [Lo-Dose Aspirin EC] 81 mg PO DAILY 12/09/17 12/16/17 Atorvastatin Calcium [Lipitor] 20 mg PO HS 12/09/17 12/16/17 Budesonide/Formoterol 160/4.5 2 puff IH BIDR 12/09/17 12/16/17 [Symbicort 160/4.5] Bupropion HCl [Wellbutrin Xl] 300 mg PO DAILY 12/09/17 12/16/17 Clopidogrel [Plavix] 75 mg PO DAILY 12/09/17 12/16/17 Ergocalciferol (VITAMIN D2) 50,000 units PO SA 12/09/17 12/16/17 [Vitamin D2] LevETIRAcetam [Keppra] 500 mg PO BID 12/09/17 12/16/17 Lisinopril [Zestril] 40 mg PO DAILY 12/09/17 12/16/17 Metoprolol [Lopressor] 25 mg PO BID 12/09/17 12/16/17 Multivitamin [One Daily Essential] 1 tab PO DAILY 12/09/17 12/16/17 Pantoprazole Sodium [Protonix] 40 mg PO DAILY 12/09/17 12/16/17 Suvorexant [Belsomra] 20 mg PO HS 12/09/17 12/16/17 amLODIPine [Norvasc] 5 mg PO DAILY 12/09/17 12/16/17 Previous Rx's Medication Instructions Recorded Polyethylene Glycol 3350 [MiraLAX] 17 gm PO DAILY PRN #14 powd.pack 12/10/17 Allergies Allergy/AdvReac Type Severity Reaction Status Date / Time hydrocodone [From [place]] Allergy Rash Verified 12/27/17 16:21 Influenza Virus Vaccines Allergy See Verified 12/27/17 16:21 Comments Iodinated Contrast- Oral and Allergy Anaphylaxis Verified 12/27/17 16:21 IV Dye [Iodinated Contrast Media - IV Dye] All systems ED: reviewed and negative except as stated. Review of Systems: As Per HPI Constitutional: Denies: fever, chills Eyes: Denies: vision change ENT ED: Denies: throat pain Cardiovascular: Denies: chest pain, palpitations Respiratory: Denies: cough, dyspnea Gastrointestinal: Denies: abdominal pain, nausea, diarrhea Genitourinary: Denies: urgency, dysuria Musculoskeletal: Reports: back pain, other (Left hip pain) Integumentary: Reports: abrasion. Denies: rash Neurological: Reports: weakness, confusion. Denies: headache Hematological/Lymphatic: Reports: easy bruising Past Medical History - Past Medical History Attestation: Yes The following information was validated with the patient. Source: patient, old records reviewed, nursing notes reviewed Medical history: Reports: CHF, coronary artery disease, CVA, GERD, hyperlipidemia, hypertension, myocardial infarction, pulmonary embolus, seizures , other Surgical history: Reports: appendectomy, cholecystectomy, hysterectomy, other Psychiatric history: Reports: ADHD, depression - Social History Smoking Status: Current every day smoker Smokeless Tobacco Status: No Alcohol use: Reports: unknown Drug use: Reports: unknown Physical Exam - General General appearance: in no apparent distress, appears intoxicated, lethargic - Head Head exam: atraumatic, normocephalic - Eye Eye exam: Present: PERRL, EOMI - ENT ENT exam: mucous membranes moist - Respiratory Respiratory exam: Present: normal lung sounds bilaterally. Absent: respiratory distress, wheezes - Cardiovascular Cardiovascular exam: Present: regular rate, normal rhythm - Abdominal Exam Abdominal exam: Present: soft, Non-Tender, normal bowel sounds. Absent: distention, guarding - Extremities Exam Extremities exam: Present: full ROM - Neurological Exam Neurological exam: Present: alert, oriented X3, CN II-XII intact, other (No sensory deficits. Patient able to follow commands. Moves all 4 extremities) - Skin Skin exam: Present: other (Multiple healing lesions and bruising over her arms and lives) Course Course Narrative: Patient has had multiple presentations to the emergency department for falls and altered mental status. She has no gross neurologic deficits on exam. It does not appear that she is postictal. She has not had a seizure in the past couple of days. Will workup the patient's confusion. Check EKG, CBC, BMP, troponin, chest x-ray, CT head without contrast. Check urinalysis. She had a possible urinary tract infection on her last admission, nitrites positive, was treated with Rocephin. The patient states she did have a fall yesterday and complains of left hip low back pain. No tenderness appreciable on exam. Able to move all 4 extremities. We will get an x-ray of her pelvis and left hip. 17:20 Labs and imaging reviewed. There is a mild increase in her white blood count compared to previous. It is 12.5. Chest x-ray with no acute abnormalities. Urinalysis does not show evidence of infection. BMP without electrolyte abnormalities. Troponin negative. It is unlikely that the confusion is related to an infectious etiology. 17:45 Patient becoming combative. Scottiedol was given. We sent urine drug screen. She was positive for amphetamine use the previous hospitalization. 18:00 Was notified that the patient was placed in restraints to bilateral wrists. This is secondary to continued combativeness and disruption of current workup and management. Still awaiting further imaging. 16:50 Patient required IV Ativan for being padded and she still required head CT. She became much more calm and received a head CT. Results are pending at this time. X-ray of her left hip and pelvis are still pending. When results are obtained patient can be admitted for further workup and management of confusion. 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 19:00 Transfer of patient care to Dr. Granger and Dr. Baker. Awaiting drug scree results, CT head results, and left hip xray results prior to being admitted for further workup of confusion. Vital Signs Temperature 98.2 F 12/27/17 16:17 Pulse Rate 62 12/27/17 16:17 Respiratory Rate 16 12/27/17 16:17 Blood Pressure 167/91 12/27/17 16:17 O2 Sat by Pulse Oximetry 99 12/27/17 16:17 Temperature 98.2 F 12/27/17 16:17 Pulse Rate 65 12/27/17 18:19 Respiratory Rate 16 12/27/17 18:19 Blood Pressure 158/85 12/27/17 18:19 O2 Sat by Pulse Oximetry 96 12/27/17 18:19 Oxygen Delivery Oxygen Delivery Room Air Altered Mental Status - Medical Records Medical records reviewed: Yes I reviewed the patient's medical records. - Lab Data Lab results reviewed: Yes I reviewed the patient's lab results. Result diagrams: 12/27/17 16:55 12/27/17 16:55 Lab Results 12/27/17 12/27/17 12/27/17 Range/Units 16:55 16:55 17:00 WBC 12.6 H (4.3-11.1) K/mcL RBC 4.45 (3.82-4.97) M/mcL Hgb 14.0 (11.5-15.4) g/dL Hct 40.7 (35.3-44.9) % MCV 91.5 (83.0-100.0) fL MCH 31.5 (28.0-33.3) pg MCHC 34.4 (31.6-35.5) g/dL RDW 12.4 (11.5-14.5) % Plt Count 157 (140-400) K/mcL MPV 12.3 (9.4-12.4) fL Immature Gran % 0.2 (0-4) % Seg Neutrophils % 64.0 % Lymphocytes % 24.2 % Monocytes % 11.1 % Eosinophils % 0.3 % Basophils % 0.2 % Neutrophils # 8.1 (1.6-8.9) K/mcL Lymphocytes # 3.1 (0.6-4.6) K/mcL Monocytes # 1.4 H (0.0-1.3) K/mcL Eosinophils # 0.0 (0.0-0.6) K/mcL Basophils # 0.0 (0.0-0.2) K/mcL Sodium 138 (136-145) mEq/L Potassium 4.0 (3.5-5.1) mEq/L Chloride 105 (98-107) mEq/L Carbon Dioxide 26 (23-29) mEq/L BUN 11 (8-23) mg/dL Creatinine 0.87 (0.60-1.20) mg/dL Est GFR ( Amer) > 60 (> 60) Est GFR (Non-Af Amer) > 60 (> 60) BUN/Creatinine Ratio 13 (6-26) Glucose 119 H (70-105) mg/dL Calculated Osmolality 287 (280-300) Calcium 9.8 (8.6-10.3) mg/dL Troponin I < 0.03 (< 0.04) ng/mL Urine Color Yellow (Yellow) Urine Clarity Clear (Clear) Urine pH 8.0 (5.0-8.0) pH Units Ur Specific [place] 1.008 L (1.010-1.025) Urine Protein Negative (Neg-Trace) mg/dL Urine Glucose (UA) Normal (Normal) mg/dL Urine Ketones Trace H (Negative) mg/dL Urine Blood Negative (Negative) Urine Nitrite Negative (Negative) Urine Bilirubin Negative (Negative) Urine Urobilinogen Normal (Normal) mg/dL Ur Leukocyte Esterase Negative (Negative) Ur Culture Indicated? NO (NO) - Radiology Data Radiology results reviewed: Yes I reviewed the patient's radiology results. Chest X-Ray 12/27/17 16:25 IMPRESSION: No acute findings. D/ / 12/27/2017 16:56:28 Hebert Torres MD / jaron Interpreting Provider: Hebert Torres MD - EKG Data EKG attestation: Yes I reviewed and interpreted this EKG. EKG results narrative: EKG on 12/27/2017 at 16:18 was sinus rhythm with rate 65 bpm. UT interval 164 ms. QRS duration 106 ms. QTC 414 ms. There is possible left atrial enlargement. There is some ST deviation moderate T-wave abnormality in V3 to V6 which is unchanged from prior EKG on 12/15/2012. EKG is unchanged from the previous. No new changes are noted. TPA Checklist - LKW: 3-4.5 hrs Add. Warnings/Precautions Patient/family understanding: The patient/family members have been counseled and understood the risk, benefit , and alternatives of treatment. Francisco - Francisco Situation: Demographics Background: Presenting Complaint Assessment: Vital Signs, Course and respsone to treatment, Exam Concerns, Patient/Family Expectation, Pertinant Lab Results, Outstanding Labs Recommendation: Recommendation based on pending studies, treatments, or consults SBeatriz Report Given to: Dr. Granger and Dr. Olivia Singh Repor Time: 19:04
[2017-12-27 17:04] LABS: Basophils % 0.2 %; Eosinophils % 0.3 %; Hematocrit 40.7 % (35.3-44.9); Immature Granulocytes % 0.2 % (0-4); Lymphocytes # 3.1 K/mcL (0.6-4.6); Lymphocytes % 24.2 %; Mean Corpuscular HGB Conc 34.4 g/dL (31.6-35.5); Mean Corpuscular Hemoglobin 31.5 pg (28.0-33.3); Mean Corpuscular Volume 91.5 fL (83.0-100.0); Mean Platelet Volume 12.3 fL (9.4-12.4); Monocytes # 1.4 K/mcL (0.0-1.3); Monocytes % 11.1 %; Neutrophils # 8.1 K/mcL (1.6-8.9); Platelet Count 157 K/mcL (140-400); Red Blood Count 4.45 M/mcL (3.82-4.97); Red Cell Distribution Width 12.4 % (11.5-14.5)
[2017-12-27 17:17] LABS: Bilirubin,Urine Negative (Negative); Blood,Urine Negative (Negative); Clarity,Urine Clear (Clear); Color,Urine Yellow (Yellow); Glucose,Urine (UA) Normal (Normal); Ketones,Urine Trace mg/dL (Negative); Leukocyte Esterase,Urine Negative (Negative); Nitrite,Urine Negative (Negative); Protein,Urine Negative (Neg-Trace); Specific Gravity,Urine 1.008 (1.010-1.025); Urobilinogen,Urine Normal (Normal)
[2017-12-27 17:25] LABS: BUN/Creatinine Ratio 13 (6-26); Blood Urea Nitrogen 11 mg/dL (8-23); Calcium 9.8 mg/dL (8.6-10.3); Carbon Dioxide 26 mEq/L (23-29); Chloride 105 mEq/L (98-107); Glucose 119 mg/dL (70-105); Osmolality,Calculated 287 (280-300); Sodium 138 mEq/L (136-145); eGFR For Non-African Americans > 60 (> 60)
[2017-12-27 17:26] LABS: Troponin I < 0.03 ng/mL (< 0.04)
[2017-12-27] MEDS ORDERED: Haloperidol Lactate 5 MG/ML VIAL IM ONE (17:32)
--- NOTE | 2017-12-27 17:58 | Emergency Department Note ---
Disposition Clinical Impression: Altered mental status Disposition: Still a Patient Condition: Fair Referrals: Katelin Luther MD [Primary Care Provider] - Forms: ED Satisfaction Letter Altered Mental Status HPI - General Chief Complaint: ED Altered Mental Status Stated Complaint: Confusion Time Seen by Provider: 12/27/17 16:23 Source: EMS Mode of arrival: EMS Limitations: altered mental status Nursing Notes Reviewed: Yes Vital Signs Reviewed: Yes - Related Data Home Medications Medication Instructions Recorded Confirmed Adalimumab [Humira Pen] 40 mg SQ Q2W 12/09/17 12/16/17 Alendronate Sodium [Fosamax] 70 mg PO QWEEK 12/09/17 12/16/17 Ammonium Lactate 1 appl TP BID PRN 12/09/17 12/16/17 Aspirin [Lo-Dose Aspirin EC] 81 mg PO DAILY 12/09/17 12/16/17 Atorvastatin Calcium [Lipitor] 20 mg PO HS 12/09/17 12/16/17 Budesonide/Formoterol 160/4.5 2 puff IH BIDR 12/09/17 12/16/17 [Symbicort 160/4.5] Bupropion HCl [Wellbutrin Xl] 300 mg PO DAILY 12/09/17 12/16/17 Clopidogrel [Plavix] 75 mg PO DAILY 12/09/17 12/16/17 Ergocalciferol (VITAMIN D2) 50,000 units PO SA 12/09/17 12/16/17 [Vitamin D2] LevETIRAcetam [Keppra] 500 mg PO BID 12/09/17 12/16/17 Lisinopril [Zestril] 40 mg PO DAILY 12/09/17 12/16/17 Metoprolol [Lopressor] 25 mg PO BID 12/09/17 12/16/17 Multivitamin [One Daily Essential] 1 tab PO DAILY 12/09/17 12/16/17 Pantoprazole Sodium [Protonix] 40 mg PO DAILY 12/09/17 12/16/17 Suvorexant [Belsomra] 20 mg PO HS 12/09/17 12/16/17 amLODIPine [Norvasc] 5 mg PO DAILY 12/09/17 12/16/17 Previous Rx's Medication Instructions Recorded Polyethylene Glycol 3350 [MiraLAX] 17 gm PO DAILY PRN #14 powd.pack 12/10/17 Allergies Allergy/AdvReac Type Severity Reaction Status Date / Time hydrocodone [From [place]] Allergy Rash Verified 12/27/17 16:21 Influenza Virus Vaccines Allergy See Verified 12/27/17 16:21 Comments Iodinated Contrast- Oral and Allergy Anaphylaxis Verified 12/27/17 16:21 IV Dye [Iodinated Contrast Media - IV Dye] Constitutional: Denies: fever, chills Eyes: Denies: vision change ENT ED: Denies: throat pain Cardiovascular: Denies: chest pain, palpitations Respiratory: Denies: cough, dyspnea Gastrointestinal: Denies: abdominal pain, nausea, diarrhea Genitourinary: Denies: urgency, dysuria Musculoskeletal: Reports: back pain, other (Left hip pain) Integumentary: Reports: abrasion. Denies: rash Neurological: Reports: weakness, confusion. Denies: headache Hematological/Lymphatic: Reports: easy bruising Past Medical History - Past Medical History Medical history: Reports: CHF, coronary artery disease, CVA, GERD, hyperlipidemia, hypertension, myocardial infarction, pulmonary embolus, seizures , other Surgical history: Reports: appendectomy, cholecystectomy, hysterectomy, other Psychiatric history: Reports: ADHD, depression - Social History Smoking Status: Current every day smoker Smokeless Tobacco Status: No Alcohol use: Reports: unknown Drug use: Reports: unknown Physical Exam - General Limitations: altered mental status General appearance: in no apparent distress, appears intoxicated, lethargic Course Vital Signs Temperature 98.2 F 12/27/17 16:17 Pulse Rate 62 12/27/17 16:17 Respiratory Rate 16 12/27/17 16:17 Blood Pressure 167/91 12/27/17 16:17 O2 Sat by Pulse Oximetry 99 12/27/17 16:17 Temperature 98.2 F 12/27/17 16:17 Pulse Rate 62 12/27/17 16:17 Respiratory Rate 16 12/27/17 16:17 Blood Pressure 167/91 12/27/17 16:17 O2 Sat by Pulse Oximetry 99 12/27/17 16:17 Oxygen Delivery Oxygen Delivery Room Air Altered Mental Status - Lab Data Result diagrams: 12/27/17 16:55 12/27/17 16:55 Lab Results 12/27/17 12/27/17 12/27/17 Range/Units 16:55 16:55 17:00 WBC 12.6 H (4.3-11.1) K/mcL RBC 4.45 (3.82-4.97) M/mcL Hgb 14.0 (11.5-15.4) g/dL Hct 40.7 (35.3-44.9) % MCV 91.5 (83.0-100.0) fL MCH 31.5 (28.0-33.3) pg MCHC 34.4 (31.6-35.5) g/dL RDW 12.4 (11.5-14.5) % Plt Count 157 (140-400) K/mcL MPV 12.3 (9.4-12.4) fL Immature Gran % 0.2 (0-4) % Seg Neutrophils % 64.0 % Lymphocytes % 24.2 % Monocytes % 11.1 % Eosinophils % 0.3 % Basophils % 0.2 % Neutrophils # 8.1 (1.6-8.9) K/mcL Lymphocytes # 3.1 (0.6-4.6) K/mcL Monocytes # 1.4 H (0.0-1.3) K/mcL Eosinophils # 0.0 (0.0-0.6) K/mcL Basophils # 0.0 (0.0-0.2) K/mcL Sodium 138 (136-145) mEq/L Potassium 4.0 (3.5-5.1) mEq/L Chloride 105 (98-107) mEq/L Carbon Dioxide 26 (23-29) mEq/L BUN 11 (8-23) mg/dL Creatinine 0.87 (0.60-1.20) mg/dL Est GFR ( Amer) > 60 (> 60) Est GFR (Non-Af Amer) > 60 (> 60) BUN/Creatinine Ratio 13 (6-26) Glucose 119 H (70-105) mg/dL Calculated Osmolality 287 (280-300) Calcium 9.8 (8.6-10.3) mg/dL Troponin I < 0.03 (< 0.04) ng/mL Urine Color Yellow (Yellow) Urine Clarity Clear (Clear) Urine pH 8.0 (5.0-8.0) pH Units Ur Specific [place] 1.008 L (1.010-1.025) Urine Protein Negative (Neg-Trace) mg/dL Urine Glucose (UA) Normal (Normal) mg/dL Urine Ketones Trace H (Negative) mg/dL Urine Blood Negative (Negative) Urine Nitrite Negative (Negative) Urine Bilirubin Negative (Negative) Urine Urobilinogen Normal (Normal) mg/dL Ur Leukocyte Esterase Negative (Negative) Ur Culture Indicated? NO (NO) TPA Checklist - LKW: 3-4.5 hrs Add. Warnings/Precautions Patient/family understanding: The patient/family members have been counseled and understood the risk, benefit , and alternatives of treatment. Attestation Statement - Attestation Attestation: I, Soto Cooper, examined this patient and my medical decision-making was reviewed with the TANK SETTER/PA/Advanced Practice Nurse/Resident Physician. I agree with the documented findings, disposition and treatment plan as described except to the extent set forth below. 72-year-old female presents emergency Department with concerns of altered mental status. Patient had a similar presentation within the past few months and was admitted. Patient's had been given Rocephin at that time for possible urinary tract infection. Her altered mental status improved with observation at that time, her urine never grew out any organisms at that time. Patient had methamphetamines in her urine at that time as well patient denies illicit drug use in the emergency Department however she is visibly confused, unable to give a reliable history regarding her case and presentation. Patient states she fell within the past 24 hours although at times it seems like she is talking about previous falls. She does not have obvious trauma to the exterior of her body on exam. Patient became combative during observation in the emergency department. Patient attempted to rip out her IV, she was a danger to herself. Patient was given Haldol and Benadryl in the emergency department. Laboratory evaluation is largely within normal limits. She does not have a urinary tract infection on urinalysis today. CT of the head pending at this time. Patient will likely be admitted for altered mental status and for further care and evaluation.
[2017-12-27] MEDS ORDERED: *HR* LORazepam 2 MG/ML VIAL IVP ONE ×2 (18:15→18:18)
[2017-12-27 19:23] LABS: Amphetamine Screen,Urine Negative ng/mL (Cutoff=1000); Barbiturate Screen,Urine Negative ng/mL (Cutoff=200); Benzodiazepines Screen,Urine Negative ng/mL (Cutoff=200); Cannabinoid Screen,Urine Negative ng/mL (Cutoff = 50); Cocaine Screen,Urine Negative ng/mL (Cutoff= 300); Opiate Screen,Urine Negative ng/mL (Cutoff=300); Phencyclidine Screen,Urine Negative ng/mL (Cutoff=25)
--- NOTE | 2017-12-27 19:26 | Emergency Department Note ---
Disposition Clinical Impression: Altered mental status Qualifiers: Altered mental status type: unspecified Qualified Code(s): R41.82 - Altered mental status, unspecified Disposition: Still a Patient Condition: Fair General Adult HPI - General Chief complaint: ED Altered Mental Status Stated complaint: Confusion Time Seen by Provider: 12/27/17 16:23 Source: EMS Mode of arrival: EMS Limitations: altered mental status - History of Present Illness HPI Narrative: Patient seen and examined. Patient was signed out by the prior provider. Please see their documentation for complete history and physical. Pain Scale: 5 - Related Data Home Medications Medication Instructions Recorded Confirmed Alendronate Sodium [Fosamax] 70 mg PO QWEEK 12/09/17 12/28/17 Ammonium Lactate 1 appl TP BID PRN 12/09/17 12/28/17 Budesonide/Formoterol 160/4.5 2 puff IH BIDR 12/09/17 12/28/17 [Symbicort 160/4.5] Bupropion HCl [Wellbutrin Xl] 150 mg PO DAILY 12/09/17 12/28/17 Ergocalciferol (VITAMIN D2) 50,000 units PO SA 12/09/17 12/28/17 [Vitamin D2] LevETIRAcetam [Keppra] 500 mg PO BID 12/09/17 12/28/17 Lisinopril [Zestril] 40 mg PO DAILY 12/09/17 12/28/17 Multivitamin [One Daily Essential] 1 tab PO DAILY 12/09/17 12/28/17 Pantoprazole Sodium [Protonix] 40 mg PO DAILY 12/09/17 12/28/17 Suvorexant [Belsomra] 20 mg PO HS 12/09/17 12/28/17 amLODIPine [Norvasc] 5 mg PO DAILY 12/09/17 12/28/17 Albuterol Sulfate [Ventolin Hfa] 2 puff IH Q4HR PRN 12/28/17 12/28/17 Albuterol Sulfate [Ventolin Hfa] 18 gm IH 12/28/17 Gabapentin [Neurontin] 300 mg PO BID 12/28/17 12/28/17 Gabapentin [Neurontin] 600 mg PO HS 12/28/17 12/28/17 Ibuprofen [Ibu] 800 mg PO TID PRN 12/28/17 12/28/17 Magnesium 250 mg PO DAILY 12/28/17 12/28/17 Metoprolol Tartrate [Lopressor] 25 mg PO BID 12/28/17 12/28/17 Sertraline [Zoloft] 200 mg PO DAILY 12/28/17 12/28/17 Allergies Allergy/AdvReac Type Severity Reaction Status Date / Time hydrocodone [From [place]] Allergy Rash Verified 12/27/17 16:21 Influenza Virus Vaccines Allergy See Verified 12/27/17 16:21 Comments Iodinated Contrast- Oral and Allergy Anaphylaxis Verified 12/27/17 16:21 IV Dye [Iodinated Contrast Media - IV Dye] Constitutional: Denies: fever, chills Eyes: Denies: vision change ENT ED: Denies: throat pain Cardiovascular: Denies: chest pain, palpitations Respiratory: Denies: cough, dyspnea Gastrointestinal: Denies: abdominal pain, nausea, diarrhea Genitourinary: Denies: urgency, dysuria Musculoskeletal: Reports: back pain, other (Left hip pain) Integumentary: Reports: abrasion. Denies: rash Neurological: Reports: weakness, confusion. Denies: headache Hematological/Lymphatic: Reports: easy bruising Past Medical History - Past Medical History Medical history: Reports: CHF, coronary artery disease, CVA, GERD, hyperlipidemia, hypertension, myocardial infarction, pulmonary embolus, seizures , other Surgical history: Reports: appendectomy, cholecystectomy, hysterectomy, other Psychiatric history: Reports: ADHD, depression - Social History Smoking Status: Current every day smoker Smokeless Tobacco Status: No Alcohol use: Reports: unknown Drug use: Reports: unknown Physical Exam - General Limitations: altered mental status General appearance: in no apparent distress, appears intoxicated, lethargic Course Course Narrative: Patient seen and examined. Patient was worked up by the prior provider. This point the patient received several culminating agents including Benadryl, Ativan and Haldol prior to my exam. The patient appears alert but confused. Family history provided by the prior provider as it appears the patient has had these symptoms before and required admission for similar complaints. There is no family at bedside to provide any additional history. Reported the patient has had worsening falls over the past 24 hours and worsening confusion. Of note the patient was recently seen last week diagnosed with UTI and prescribed antibiotics. Vital Signs Temperature 98.2 F 12/27/17 16:17 Pulse Rate 62 12/27/17 16:17 Respiratory Rate 16 12/27/17 16:17 Blood Pressure 167/91 12/27/17 16:17 O2 Sat by Pulse Oximetry 99 12/27/17 16:17 Temperature 98.2 F 12/28/17 03:35 Pulse Rate 66 12/28/17 03:35 Respiratory Rate 16 12/28/17 03:35 Blood Pressure 167/90 12/28/17 03:35 O2 Sat by Pulse Oximetry 96 12/28/17 03:35 Oxygen Delivery Oxygen Delivery Nasal Cannula Medical Decision Making - MDM Narrative Medical decision making narrative: 72-year-old who presented today for concerns of altered mental status. There is no family at bedside to provide initial history. Much of the history was provided via chart review. Patient did have a recent admission for altered mental status which was likely secondary to polypharmacy as well as urinary tract infection. Patient received extensive evaluation in the hospital course which included a brain MRI as well as EEG. Patient's symptoms improved however the patient was continued have delusions. On my exam the patient received several sedating calming agents which skews my neurologic exam are the patient does appear to be controlling her airway. Patient's records reviewed. Patient' s labs are essentially unremarkable. ABGs also unremarkable. Etiology of the patient's symptoms is not known at this time are the patient will need admission to ensure symptom resolution likely discharge planning. Patient has no meningitis symptoms. No notable fevers. Patient will be admitted to hospital service. - Lab Data Lab results reviewed: Yes I reviewed the patient's lab results. Result diagrams: 12/28/17 03:58 12/28/17 03:58 Lab Results 12/27/17 12/27/17 12/27/17 Range/Units 16:55 16:55 17:00 WBC 12.6 H (4.3-11.1) K/mcL RBC 4.45 (3.82-4.97) M/mcL Hgb 14.0 (11.5-15.4) g/dL Hct 40.7 (35.3-44.9) % MCV 91.5 (83.0-100.0) fL MCH 31.5 (28.0-33.3) pg MCHC 34.4 (31.6-35.5) g/dL RDW 12.4 (11.5-14.5) % Plt Count 157 (140-400) K/mcL MPV 12.3 (9.4-12.4) fL Immature Gran % 0.2 (0-4) % Seg Neutrophils % 64.0 % Lymphocytes % 24.2 % Monocytes % 11.1 % Eosinophils % 0.3 % Basophils % 0.2 % Neutrophils # 8.1 (1.6-8.9) K/mcL Lymphocytes # 3.1 (0.6-4.6) K/mcL Monocytes # 1.4 H (0.0-1.3) K/mcL Eosinophils # 0.0 (0.0-0.6) K/mcL Basophils # 0.0 (0.0-0.2) K/mcL Sample Site ABG pH (7.32-7.45) pH Units ABG pCO2 (35-45) mmHg ABG pO2 (85-104) mmHg ABG HCO3 (21-27) mEq/L ABG Total CO2 (20-26) mEq/L ABG O2 Saturation (95-98) % ABG Base Excess (-2 to 3) mEq/L Emil Test O2 Delivery Device Inspired O2 (1-15=lpm [id number]=%) Sodium 138 (136-145) mEq/L Potassium 4.0 (3.5-5.1) mEq/L Chloride 105 (98-107) mEq/L Carbon Dioxide 26 (23-29) mEq/L BUN 11 (8-23) mg/dL Creatinine 0.87 (0.60-1.20) mg/dL Est GFR ( Amer) > 60 (> 60) Est GFR (Non-Af Amer) > 60 (> 60) BUN/Creatinine Ratio 13 (6-26) Glucose 119 H (70-105) mg/dL Calculated Osmolality 287 (280-300) Calcium 9.8 (8.6-10.3) mg/dL Troponin I < 0.03 (< 0.04) ng/mL Urine Color Yellow (Yellow) Urine Clarity Clear (Clear) Urine pH 8.0 (5.0-8.0) pH Units Ur Specific [place] 1.008 L (1.010-1.025) Urine Protein Negative (Neg-Trace) mg/dL Urine Glucose (UA) Normal (Normal) mg/dL Urine Ketones Trace H (Negative) mg/dL Urine Blood Negative (Negative) Urine Nitrite Negative (Negative) Urine Bilirubin Negative (Negative) Urine Urobilinogen Normal (Normal) mg/dL Ur Leukocyte Esterase Negative (Negative) Ur Culture Indicated? NO (NO) Urine Opiates Screen (Uziyrt=629) ng/mL Ur Barbiturates Screen (Bweywm=496) ng/mL Ur Phencyclidine Scrn (Cutoff=25) ng/mL Ur Amphetamines Screen (Bvlkjv=0511) ng/mL U Benzodiazepines Scrn (Adbqfe=657) ng/mL Urine Cocaine Screen (Cutoff= 300) ng/mL U Marijuana (THC) Screen (Cutoff = 50) ng/mL Ur Drug Screen Interp 12/27/17 12/27/17 Range/Units 17:00 19:35 WBC (4.3-11.1) K/mcL RBC (3.82-4.97) M/mcL Hgb (11.5-15.4) g/dL Hct (35.3-44.9) % MCV (83.0-100.0) fL MCH (28.0-33.3) pg MCHC (31.6-35.5) g/dL RDW (11.5-14.5) % Plt Count (140-400) K/mcL MPV (9.4-12.4) fL Immature Gran % (0-4) % Seg Neutrophils % % Lymphocytes % % Monocytes % % Eosinophils % % Basophils % % Neutrophils # (1.6-8.9) K/mcL Lymphocytes # (0.6-4.6) K/mcL Monocytes # (0.0-1.3) K/mcL Eosinophils # (0.0-0.6) K/mcL Basophils # (0.0-0.2) K/mcL Sample Site R Radial ABG pH 7.41 (7.32-7.45) pH Units ABG pCO2 41 (35-45) mmHg ABG pO2 91 (85-104) mmHg ABG HCO3 26 (21-27) mEq/L ABG Total CO2 27 H (20-26) mEq/L ABG O2 Saturation 97 (95-98) % ABG Base Excess 1 (-2 to 3) mEq/L Emil Test N/A O2 Delivery Device Cannula Inspired O2 28.0 (1-15=lpm [id number]=%) Sodium (136-145) mEq/L Potassium (3.5-5.1) mEq/L Chloride (98-107) mEq/L Carbon Dioxide (23-29) mEq/L BUN (8-23) mg/dL Creatinine (0.60-1.20) mg/dL Est GFR ( Amer) (> 60) Est GFR (Non-Af Amer) (> 60) BUN/Creatinine Ratio (6-26) Glucose (70-105) mg/dL Calculated Osmolality (280-300) Calcium (8.6-10.3) mg/dL Troponin I (< 0.04) ng/mL Urine Color (Yellow) Urine Clarity (Clear) Urine pH (5.0-8.0) pH Units Ur Specific [place] (1.010-1.025) Urine Protein (Neg-Trace) mg/dL Urine Glucose (UA) (Normal) mg/dL Urine Ketones (Negative) mg/dL Urine Blood (Negative) Urine Nitrite (Negative) Urine Bilirubin (Negative) Urine Urobilinogen (Normal) mg/dL Ur Leukocyte Esterase (Negative) Ur Culture Indicated? (NO) Urine Opiates Screen Negative (Gargix=656) ng/mL Ur Barbiturates Screen Negative (Iiwhyc=296) ng/mL Ur Phencyclidine Scrn Negative (Cutoff=25) ng/mL Ur Amphetamines Screen Negative (Ggjdqw=5460) ng/mL U Benzodiazepines Scrn Negative (Hwvxgc=769) ng/mL Urine Cocaine Screen Negative (Cutoff= 300) ng/mL U Marijuana (THC) Screen Negative (Cutoff = 50) ng/mL Ur Drug Screen Interp See Below - Radiology Data Radiology results reviewed: Yes I reviewed the patient's radiology results. Chest X-Ray 12/27/17 16:25 IMPRESSION: No acute findings. D/ / 12/27/2017 16:56:28 Hebert Torres MD / jaron Interpreting Provider: Hebert Torres MD Head CT 12/27/17 16:26 IMPRESSION: No acute intracranial abnormality. Diffuse atrophy and left frontal and right parietal areas of encephalomalacia, unchanged. D/ / Conor Fam MD / Conor Fam MD Interpreting Provider: Conor Fam MD Hip X-Ray 12/27/17 16:37 IMPRESSION: No acute osseous abnormality of the pelvis or left hip. D/ / Michele Polanco / Michele Polanco Interpreting Provider: Michele Polanco Attestation Statement - Attestation Attestation: I examined this patient and my medical decision-making was reviewed with the Resident Physician. I agree with the documented findings, disposition and treatment plan as described except to the extent set forth below. Findings consistent with altered mental status. Patient has a history of encephalopathy. Patient was signed out to me. Imaging is negative, no correctable or identifiable metabolic derangement at this time. Patient will need admission for clearance of mental status.
[2017-12-27 19:42] LABS: ABG Base Excess 1 mEq/L (-2 to 3); ABG HCO3 26 mEq/L (21-27); ABG Oxygen Saturation 97 % (95-98); ABG PCO2 41 mmHg (35-45); ABG PH 7.41 pH Units (7.32-7.45); ABG PO2 91 mmHg (85-104); ABG TCO2 27 mEq/L (20-26)
[2017-12-27] MEDS ORDERED: Albuterol 2.5 MG/3 ML NEBULIZER IH PRN (21:19)
[2017-12-27] MEDS ORDERED: OLANZapine 10 MG VIAL IM PRN (21:22)
[2017-12-27] MEDS ORDERED: Acetaminophen 325 MG TABLET PO PRN (21:23)
[2017-12-27] MEDS ORDERED: Naloxone 0.4 MG/ML INJ IVP PRN (21:23)
--- NOTE | 2017-12-27 21:56 | Internal Med History&Physical ---
Date of Encounter: 12/27/17 Time of Encounter: 21:46 Internal Medicine - H&P: HPI Chief complaint: Altered Mental Status, Recurrent Falls Admitted From: Emergency Dept Plans for Post Hospital Care: Transfer Inp Rehab Fac ([facility]) History of present illness: Ms. Farris is a 72 year old female with PMH of seizure disorder and CVA who presented to ED today with altered mental status and fall. Patient's family called EMS, but is not present at this time to help with history. Patient is still confused, but alert and oriented x 1 (person). I am not able to get much history from her. She answers some questions appropriately, but is also saying random, non-pertinent things. Patient was recent hospitalized here about 2 weeks ago for the same issues. At that time, she had questionable UTI and was treated with rocephin. Neurology and psychaitry were also consulted. Neurology ruled out CVA and seizure disorder as likely cause of altered mental status. Psychiatry felt the patient was showing acute delirium vs dementia. They recommended inpatient geriatric psych unit at discharge, but patient refused this and was discharged home after improvement in mentation. She was methamphetamine positive during last hospitalization, but UDS today is negative. She denies fever, chills, chest pain, SOB, nausea, vomiting, abdominal pain, changes in bladder, or changes in bowel. She does not voice any complaints at this time. In the ED, she was given haldol and benadryl for agitation, and she was also put on physical restraints. She does not seem to be agitated at the time of my examination. CXR, head CT, and hip x-ray were negative for any acute findings. Labwork and UA were unremarkable, except borderline high WBC of 12.6. Past Med Surg Social Fam HX - Past Medical History Attestation: No The following information was validated with the patient. Source: unable to obtain, old records reviewed Medical history: CHF, coronary artery disease, CVA, GERD, hyperlipidemia, hypertension, myocardial infarction, pulmonary embolus, seizures, other Additional medical history: guillian barre, legally blind Psychiatric history: ADHD, depression - Past Surgical History Surgical History: appendectomy, cholecystectomy, hysterectomy, other Additional surgical history: tumor removed from small intestine - Social History Smoking Status: Current every day smoker Smokeless Tobacco Status: No Alcohol use: unknown Drug use: unknown - Family History Father Living Status: Hx Family Cardiac Disorders: Yes Mother Living Status: Hx Family Cardiac Disorders: Yes - Additional Family History Additional family history: Unable to verify family history with patient due to patient condition of acute delirium. Internal Medicine - H&P: Meds Adalimumab [Humira Pen] 40 mg SQ Q2W 12/09/17 [History] Alendronate Sodium [Fosamax] 70 mg PO QWEEK 12/09/17 [History] Ammonium Lactate 1 appl TP BID PRN 12/09/17 [History] Aspirin [Lo-Dose Aspirin EC] 81 mg PO DAILY 12/09/17 [History] Atorvastatin Calcium [Lipitor] 20 mg PO HS 12/09/17 [History] Budesonide/Formoterol 160/4.5 [Symbicort 160/4.5] 2 puff IH BIDR 12/09/17 [ History] Bupropion HCl [Wellbutrin Xl] 300 mg PO DAILY 12/09/17 [History] Clopidogrel [Plavix] 75 mg PO DAILY 12/09/17 [History] Ergocalciferol (VITAMIN D2) [Vitamin D2] 50,000 units PO SA 12/09/17 [History] LevETIRAcetam [Keppra] 500 mg PO BID 12/09/17 [History] Lisinopril [Zestril] 40 mg PO DAILY 12/09/17 [History] Metoprolol [Lopressor] 25 mg PO BID 12/09/17 [History] Multivitamin [One Daily Essential] 1 tab PO DAILY 12/09/17 [History] Pantoprazole Sodium [Protonix] 40 mg PO DAILY 12/09/17 [History] Suvorexant [Belsomra] 20 mg PO HS 12/09/17 [History] amLODIPine [Norvasc] 5 mg PO DAILY 12/09/17 [History] Polyethylene Glycol 3350 [MiraLAX] 17 gm PO DAILY PRN #14 powd.pack 12/10/17 [Rx ] 3 Allergy/AdvReac Type Severity Reaction Status Date / Time hydrocodone [From [place]] Allergy Rash Verified 12/27/17 16:21 Influenza Virus Vaccines Allergy See Verified 12/27/17 16:21 Comments Iodinated Contrast- Oral and Allergy Anaphylaxis Verified 12/27/17 16:21 IV Dye [Iodinated Contrast Media - IV Dye] All Systems PM: A 10-system review of systems was performed and is negative for pertinent findings except as documented above in the HPI. - Constitutional Vitals: Temp Pulse Resp BP Pulse Ox 98.2 F 66 16 143/94 99 12/27/17 16:17 12/27/17 20:21 12/27/17 20:21 12/27/17 20:21 12/27/17 20:21 General appearance: Present: cooperative, A&O X 1, no acute distress. Absent: answers questions appropriately - Head Head exam: Absent: atraumatic, normocephalic - Eye Eye exam: Present: EOMI, PERRL. Absent: conjunctival injection, nystagmus, scleral icterus - ENT ENT exam: Present: mucous membranes moist, normal external ear exam, normal oropharynx - Neck Neck exam general surgery: Present: supple, trachea midline. Absent: lymphadenopathy, tenderness, thyromegaly - Respiratory Respiratory exam: Present: CTAB. Absent: accessory muscle use, rales, rhonchi, wheezes Additional comments: Normal WOB - Cardiovascular Cardiovascular exam: Present: RRR, +S1, +S2. Absent: diastolic murmur, gallop, rubs, systolic murmur Additional comments: No BLE edema - GI/Abdominal GI/Abdominal exam: Present: normal bowel sounds, soft. Absent: distended, hepatomegaly, mass, splenomegaly, tenderness - Neurological Exam Neurological exam: Present: alert, altered, CN II-XII intact, no focal deficits , strengths equal and symetr throughout. Absent: motor sensory deficit, facial droop, speech deficit - Psychiatric Psychiatric exam: Present: normal affect, normal mood. Absent: agitated, anxious, depressed - Skin Skin exam: Present: dry, intact, warm. Absent: cyanosis, rash Internal Med - H&P Results - Labs CBC & Chem 7: 12/27/17 16:55 12/27/17 16:55 - Assessment and plan (1) Acute delirium Current Visit: Yes Status: Acute Assessment and plan: Recurrent issue. She was hospitalized 2 weeks ago for same issue. She had UTI at that time and was treated with rocephin. CVA and seizure workup by neurology was negative. Psychiatry diagnosed acute delirium vs dementia and recommended inpatient geriatric psychiatry. Patient refused placement and was discharged home. We will admit for observation with telemetry and 1-on-1 sitter. Neurochecks Q4H. Obtain MRI brain in AM to rule out new CVA. I do think this is a psychiatric issue and will consult psychiatry again in AM. Zyprexa 5 mg IM once PRN agitation. Will keep NPO until she is more alert; hydrate gently with IV NS at 75 ml/hr. Repeat labwork in AM. Consult for inpatient geriatric psychiatry placement. (2) Fall Current Visit: Yes Status: Acute Assessment and plan: Imaging all negative for fractures/bleeding. Consult PT/OT in AM. Treating delirium as per above. Qualifiers: Encounter type: initial encounter Qualified Code(s): W19.XXXA - Unspecified fall, initial encounter (3) History of CVA (cerebrovascular accident) Current Visit: Yes Status: Chronic Assessment and plan: MRI brain in AM as per above. Continue home medications after verification. (4) Seizure disorder Current Visit: Yes Status: Chronic Assessment and plan: Continue home medications after verification. Consider discontinuation of bupropion. (5) COPD (chronic obstructive pulmonary disease) Current Visit: Yes Status: Chronic Assessment and plan: Start albuterol nebs and supplemental oxygen PRN. Qualifiers: COPD type: unspecified COPD Qualified Code(s): J44.9 - Chronic obstructive pulmonary disease, unspecified (6) HTN (hypertension) Current Visit: Yes Status: Chronic Assessment and plan: Continue home medications after verification. Qualifiers: Hypertension type: essential hypertension Qualified Code(s): I10 - Essential (primary) hypertension (7) Tobacco abuse Current Visit: Yes Status: Chronic Assessment and plan: Counselled on smoking cessation. (8) CAD (coronary artery disease) Current Visit: Yes Status: Chronic Assessment and plan: Continue home medications after verification. Qualifiers: Coronary Disease-Associated Artery/Lesion type: [place] artery [place] vs. transplanted heart: [place] heart Associated angina: without angina Qualified Code(s): I25.10 - Atherosclerotic heart disease of [place] coronary artery without angina pectoris (9) Depression Current Visit: Yes Status: Chronic Assessment and plan: Continue home medications after verification. Consider discontinuation of buproprion as per above due to seizure disorder. Qualifiers: Depression Type: unspecified Qualified Code(s): F32.9 - Major depressive disorder, single episode, unspecified (10) Diastolic congestive heart failure Current Visit: Yes Status: Chronic Assessment and plan: Euvolemic at this time. Continue home medications after verification. Qualifiers: Qualified Code(s): I50.32 - Chronic diastolic (congestive) heart failure (11) GERD (gastroesophageal reflux disease) Current Visit: Yes Status: Chronic Assessment and plan: Continue home medications after verification. Qualifiers: Esophagitis presence: without esophagitis Qualified Code(s): K21.9 - Gastro -esophageal reflux disease without esophagitis (12) HLD (hyperlipidemia) Current Visit: Yes Status: Chronic Assessment and plan: Continue home medications after verification. Qualifiers: Hyperlipidemia type: mixed hyperlipidemia Qualified Code(s): E78.2 - Mixed hyperlipidemia (13) DVT prophylaxis Current Visit: Yes Status: Acute Assessment and plan: Start SCDs and lovenox 40 mg SQ QD. - Time Spent With Patient Total time spent is greater than 50% in coordination of care (as documented) at patient's floor/unit and/or counseling patient: less than 15 minutes
[2017-12-27] MEDS: 0.9 % Sodium Chloride 1,000 ML IVC SCH (23:00)
[2017-12-28 04:38] LABS: Basophils % 0.3 %; Eosinophils # 0.1 K/mcL (0.0-0.6); Hematocrit 39.2 % (35.3-44.9); Hemoglobin 13.3 g/dL (11.5-15.4); Immature Granulocytes % 0.3 % (0-4); Lymphocytes # 2.9 K/mcL (0.6-4.6); Lymphocytes % 26.3 %; Mean Corpuscular HGB Conc 33.9 g/dL (31.6-35.5); Mean Corpuscular Hemoglobin 31.2 pg (28.0-33.3); Mean Platelet Volume 12.4 fL (9.4-12.4); Monocytes # 1.2 K/mcL (0.0-1.3); Monocytes % 11.1 %; Neutrophils # 6.7 K/mcL (1.6-8.9); Platelet Count 138 K/mcL (140-400); Red Blood Count 4.26 M/mcL (3.82-4.97); Red Cell Distribution Width 12.4 % (11.5-14.5)
[2017-12-28 04:56] LABS: BUN/Creatinine Ratio 12 (6-26); Blood Urea Nitrogen 8 mg/dL (8-23); Calcium 8.8 mg/dL (8.6-10.3); Carbon Dioxide 24 mEq/L (23-29); Chloride 107 mEq/L (98-107); Glucose 145 mg/dL (70-105); Osmolality,Calculated 287 (280-300); Potassium 3.6 mEq/L (3.5-5.1); Sodium 138 mEq/L (136-145); eGFR For Non-African Americans > 60 (> 60)
[2017-12-28] MEDS: *HR* Enoxaparin 40 MG/0.4 ML SYRINGE SQ SCH (06:11)
[2017-12-28] MEDS ORDERED: Ammonium Lactate 30 APPL/225 GM BOTTLE TP PRN (10:55)
[2017-12-28] MEDS ORDERED: NON-FORMULARY MEDICATION 1 EACH EACH (Alendronate Sodium [Fosamax] 70 MG) PO SCH (11:00)
--- NOTE | 2017-12-28 11:46 | Internal Med Progress Note ---
Date of Encounter: 12/28/17 Time of Encounter: 11:46 - Assessment and plan (1) Acute delirium Current Visit: Yes Status: Acute Assessment and plan: Again presents with acute delirium. She was recently hospitalized 2 weeks ago for the same issue. Was treated for UTI at that time. Urinalysis during this admission grossly normal. The patient says she lives at home alone and takes care of her medications herself. She is taking high doses of zoloft and is taking wellbutrin as well as gabapentin and Belsara. She reports that she has not slept almost 48 hours. Alterations in mental status could be related to sleep deprivation, and appropriate dosing of medications and/or side effects of Belsara, or a combination of all of these issues. Psychiatry has been consulted to help adjust medications-thank you for your consultation, appreciate recommendations. Per my assessment, the patient remains confused and combative and also has an unsteady gait. She is not safe for discharge at this time. She denies any suicidal or homicidal ideation. Continue with frequent neuro checks. Follow-up on brain MRI. Monitor labs daily (2) HTN (hypertension) Current Visit: Yes Status: Chronic Assessment and plan: History of hypertension, BP 163/91. Patient currently taking calcium channel shelton, PONCHO inhibitor and metoprolol. Increase Norvasc to 10 mg daily. Given additional 5 mg dose now for a total of 10mg today. Monitor BP closely, continue with when necessary hydralazine Qualifiers: Hypertension type: essential hypertension Qualified Code(s): I10 - Essential (primary) hypertension (3) History of CVA (cerebrovascular accident) Current Visit: Yes Status: Chronic Assessment and plan: History of CVA, CT of head negative for acute abnormality. Presents with altered mental state, confusion and agitation. Obtain MRI brain.. Continue home medications. No new neurological deficits per my exam (4) Seizure disorder Current Visit: Yes Status: Chronic Assessment and plan: Continue home meds (5) Fall Current Visit: Yes Status: Acute Qualifiers: Encounter type: initial encounter Qualified Code(s): W19.XXXA - Unspecified fall, initial encounter (6) CAD (coronary artery disease) Current Visit: Yes Status: Chronic Qualifiers: Coronary Disease-Associated Artery/Lesion type: [place] artery [place] vs. transplanted heart: [place] heart Associated angina: without angina Qualified Code(s): I25.10 - Atherosclerotic heart disease of [place] coronary artery without angina pectoris (7) GERD (gastroesophageal reflux disease) Current Visit: Yes Status: Chronic Qualifiers: Esophagitis presence: without esophagitis Qualified Code(s): K21.9 - Gastro -esophageal reflux disease without esophagitis (8) HLD (hyperlipidemia) Current Visit: Yes Status: Chronic Qualifiers: Hyperlipidemia type: mixed hyperlipidemia Qualified Code(s): E78.2 - Mixed hyperlipidemia (9) Depression Current Visit: Yes Status: Chronic Qualifiers: Depression Type: unspecified Qualified Code(s): F32.9 - Major depressive disorder, single episode, unspecified (10) Diastolic congestive heart failure Current Visit: Yes Status: Chronic Qualifiers: Qualified Code(s): I50.32 - Chronic diastolic (congestive) heart failure (11) Tobacco abuse Current Visit: Yes Status: Chronic (12) COPD (chronic obstructive pulmonary disease) Current Visit: Yes Status: Chronic Qualifiers: COPD type: unspecified COPD Qualified Code(s): J44.9 - Chronic obstructive pulmonary disease, unspecified (13) DVT prophylaxis Current Visit: Yes Status: Acute Assessment and plan: lovenox 40 mg SQ QD. - Time Spent With Patient Total time spent is greater than 50% in coordination of care (as documented) at patient's floor/unit and/or counseling patient: 25 - 35 minutes - Subjective Interval history: Patient seen and examined at bedside today. Appears to be agitated and confused but alert and oriented 1 (person). She is unable to participate in exam. No family present at this time to help with history - Constitutional Vitals: Temp Pulse Resp BP Pulse Ox 97.7 F 76 18 163/91 98 12/28/17 11:00 12/28/17 11:00 12/28/17 11:00 12/28/17 11:00 12/28/17 11:00 General appearance: Present: cooperative, A&O X 1, no acute distress, underweight. Absent: answers questions appropriately - Head Head exam: Present: atraumatic, normocephalic - Eye Eye exam: Present: PERRL, conjuntiva pink, sclera anicteric Pupils: Present: PERRL - Respiratory Respiratory exam: Present: CTAB. Absent: accessory muscle use, rales, rhonchi, wheezes - Cardiovascular Cardiovascular exam: Present: RRR, +S1, +S2. Absent: diastolic murmur, gallop, rubs, systolic murmur - GI/Abdominal GI/Abdominal exam: Present: normal bowel sounds, soft, no peritoneal signs. Absent: distended, tenderness - Extremities Exam Extremities exam: Present: warm, radial pulses palpable and symmetrical. Absent : calf tenderness, cyanotic, pedal edema - Neurological Exam Neurological exam: Present: alert, strengths equal and symetr throughout. Absent: oriented X3, pronater drift, facial droop, speech deficit - Psychiatric Psychiatric exam: Present: agitated - Skin Skin exam: Present: dry, intact Internal Medicine: Result - Labs CBC & Chem 7: 12/28/17 03:58 12/28/17 03:58 Labs: Short CBC 12/28/17 Range/Units 03:58 WBC 10.9 (4.3-11.1) K/mcL Hgb 13.3 (11.5-15.4) g/dL Hct 39.2 (35.3-44.9) % Plt Count 138 L (140-400) K/mcL Neutrophils # 6.7 (1.6-8.9) K/mcL BMP 12/28/17 03:58 Sodium 138 Potassium 3.6 Chloride 107 Carbon Dioxide 24 BUN 8 Creatinine 0.69 Glucose 145 H Calcium 8.8 - ABG Interpretation ABG results: ABG ABG pH 7.41 pH Units (7.32-7.45) 12/27/17 19:35 ABG pCO2 41 mmHg (35-45) 12/27/17 19:35 ABG pO2 91 mmHg (85-104) 12/27/17 19:35 ABG O2 Saturation 97 % (95-98) 12/27/17 19:35 Consult Discharge Plan - Plan Referrals: Katelin Luther MD [Primary Care Provider] -
[2017-12-28] MEDS ORDERED: amLODIPine 5 MG TABLET PO ONE (11:50)
--- NOTE | 2017-12-28 13:12 | Consult Note ---
Date of Encounter: 12/28/17 Time of Encounter: 13:07 Assessment & Recommendation (1) Altered mental status Current visit: No Status: Resolved Assessment & Recommendation: Suspect client has an underlying dementia with occasional episodes of delirium. Can treat any associated agitation with low Risperdal (0.5mg) or Haldol (2mg) to see if they provide any benefit. Do not see any primary mental health disorder that needs treated. If client continues to present to the hospital she likely cannot be managed in her current living environment. Would recommend she be considered for placement in a rehab facility or a alf facility. Qualifiers: Altered mental status type: unspecified Qualified Code(s): R41.82 - Altered mental status, unspecified History of Present Illness Requesting Physician: Kevin Vasquez MD Reason for consult: AMS History of present illness: Ms. Farris is a 72 year old female who was admitted secondary to mental status changes. Has had multiple admissions recently with a similar presentation. On eval today she is not oriented at all. 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 Believes she was brought back to the hospital due to stomach and hip pain. Unable to give me much mental health history. States she takes Wellbutrin for depression and has for years but denies everything else. Denies SI/HI. Based on her presentation suspect she has dementia. Past scans show diffuse atrophy and prior infarcts. May have periods of delirium on top of underlying dementia but presentation today looks like a cognitive disorder. CC: Kevin Vasquez MD Past Med Surg Social Fam HX - Past Medical History Medical history: CHF, coronary artery disease, CVA, GERD, hyperlipidemia, hypertension, myocardial infarction, pulmonary embolus, seizures, other - Past Psychiatric History Psychiatric history: Reports: depression Family psychiatric history: Unknown Family History of Suicide: Unknown - Past Surgical History Surgical History: appendectomy, cholecystectomy, hysterectomy, other - Social History Smoking Status: Current every day smoker Smokeless Tobacco Status: No Alcohol use: unknown Drug use: unknown - Family History Father Living Status: Hx Family Cardiac Disorders: Yes Mother Living Status: Hx Family Cardiac Disorders: Yes Medications & Allergies Alendronate Sodium [Fosamax] 70 mg PO QWEEK 12/09/17 [History] Ammonium Lactate 1 appl TP BID PRN 12/09/17 [History] Budesonide/Formoterol 160/4.5 [Symbicort 160/4.5] 2 puff IH BIDR 12/09/17 [ History] Bupropion HCl [Wellbutrin Xl] 150 mg PO DAILY 12/09/17 [History] Ergocalciferol (VITAMIN D2) [Vitamin D2] 50,000 units PO SA 12/09/17 [History] LevETIRAcetam [Keppra] 500 mg PO BID 12/09/17 [History] Lisinopril [Zestril] 40 mg PO DAILY 12/09/17 [History] Multivitamin [One Daily Essential] 1 tab PO DAILY 12/09/17 [History] Pantoprazole Sodium [Protonix] 40 mg PO DAILY 12/09/17 [History] Suvorexant [Belsomra] 20 mg PO HS 12/09/17 [History] amLODIPine [Norvasc] 5 mg PO DAILY 12/09/17 [History] Albuterol Sulfate [Ventolin Hfa] 2 puff IH Q4HR PRN 12/28/17 [History] Gabapentin [Neurontin] 300 mg PO BID 12/28/17 [History] Gabapentin [Neurontin] 600 mg PO HS 12/28/17 [History] Ibuprofen [Ibu] 800 mg PO TID PRN 12/28/17 [History] Magnesium 250 mg PO DAILY 12/28/17 [History] Metoprolol Tartrate [Lopressor] 25 mg PO BID 12/28/17 [History] Sertraline [Zoloft] 200 mg PO DAILY 12/28/17 [History] 3 Allergy/AdvReac Type Severity Reaction Status Date / Time hydrocodone [From [place]] Allergy Rash Verified 12/27/17 16:21 Influenza Virus Vaccines Allergy See Verified 12/27/17 16:21 Comments Iodinated Contrast- Oral and Allergy Anaphylaxis Verified 12/27/17 16:21 IV Dye [Iodinated Contrast Media - IV Dye] Review of Systems Constitutional: Denies: fever, chills, weakness, weight change Eyes: Denies: eye pain, vision change Ears, Nose, Throat: Denies: ear pain, throat pain, dental pain, hearing loss, congestion Cardiovascular: Denies: chest pain, palpitations, dyspnea on exertion Respiratory: Denies: cough, dyspnea, wheezes Gastrointestinal: Denies: abdominal pain, nausea, vomiting, diarrhea, constipation Genitourinary female: Denies: urgency, dysuria, frequency, abnormal menses, dyspareunia Musculoskeletal: Denies: joint swelling, joint pain Integumentary: Denies: rash, lesions, pruritus Neurological: Denies: headache, weakness, numbness, memory loss Endocrine: Denies: fatigue, heat or cold intolerance Hematologic/Lymphatic: Denies: easy bruising, lymphadenopathy Allergic/Immunologic: Denies: urticaria, itchy eyes Psychiatry Exam - Constitutional Vitals: Temp Pulse Resp BP Pulse Ox 97.7 F 76 18 163/91 98 12/28/17 11:00 12/28/17 11:00 12/28/17 11:00 12/28/17 11:00 12/28/17 11:00 General appearance: age & developmentally appropriate - Musculoskeletal Gait: normal Station: relaxed Strength & Tone: normal for patient - Psychiatric Patient Orientation: Yes Person, Yes Place Level of alertness: Alert Behavior: calm, cooperative Psychomotor activity: Normal Eye Contact: Maintains Eye Contact Mood Description: Euthymic/stable Affect description: blunted Speech Volume: Normal Speech pattern: normal rate, normal rhythm, normal tone, fluent, spontaneous Language & Vocabulary: consistent with education Thought Process: Linear Thought Content: No Suicidal ideation, No Homicidal ideation, No Overt delusions Perceptual Disturbances: No Auditory hallucinations, No Visual hallucinations Attention Span Ability: Capable of Focused Attention Memory Description: Immediate Intact, Recent Impaired, Remote Impaired Patient Reliability: Not Reliable Historian Fund of knowledge: Yes abstraction ability Intelligence Estimate: Average Judgment: Limited Insight: Minimal Results - Labs Labs: Laboratory Last Values WBC 10.9 K/mcL (4.3-11.1) 12/28/17 03:58 RBC 4.26 M/mcL (3.82-4.97) 12/28/17 03:58 Hgb 13.3 g/dL (11.5-15.4) 12/28/17 03:58 Hct 39.2 % (35.3-44.9) 12/28/17 03:58 MCV 92.0 fL (83.0-100.0) 12/28/17 03:58 MCH 31.2 pg (28.0-33.3) 12/28/17 03:58 MCHC 33.9 g/dL (31.6-35.5) 12/28/17 03:58 RDW 12.4 % (11.5-14.5) 12/28/17 03:58 Plt Count 138 K/mcL (140-400) L 12/28/17 03:58 MPV 12.4 fL (9.4-12.4) 12/28/17 03:58 Immature Gran % 0.3 % (0-4) 12/28/17 03:58 Seg Neutrophils % 61.0 % 12/28/17 03:58 Lymphocytes % 26.3 % 12/28/17 03:58 Monocytes % 11.1 % 12/28/17 03:58 Eosinophils % 1.0 % 12/28/17 03:58 Basophils % 0.3 % 12/28/17 03:58 Neutrophils # 6.7 K/mcL (1.6-8.9) 12/28/17 03:58 Lymphocytes # 2.9 K/mcL (0.6-4.6) 12/28/17 03:58 Monocytes # 1.2 K/mcL (0.0-1.3) 12/28/17 03:58 Eosinophils # 0.1 K/mcL (0.0-0.6) 12/28/17 03:58 Basophils # 0.0 K/mcL (0.0-0.2) 12/28/17 03:58 Sample Site R Radial 12/27/17 19:35 ABG pH 7.41 pH Units (7.32-7.45) 12/27/17 19:35 ABG pCO2 41 mmHg (35-45) 12/27/17 19:35 ABG pO2 91 mmHg (85-104) 12/27/17 19:35 ABG HCO3 26 mEq/L (21-27) 12/27/17 19:35 ABG Total CO2 27 mEq/L (20-26) H 12/27/17 19:35 ABG O2 Saturation 97 % (95-98) 12/27/17 19:35 ABG Base Excess 1 mEq/L (-2 to 3) 12/27/17 19:35 Emil Test N/A 12/27/17 19:35 O2 Delivery Device Cannula 12/27/17 19:35 Inspired O2 28.0 (1-15=lpm [id number]=%) 12/27/17 19:35 Sodium 138 mEq/L (136-145) 12/28/17 03:58 Potassium 3.6 mEq/L (3.5-5.1) 12/28/17 03:58 Chloride 107 mEq/L (98-107) 12/28/17 03:58 Carbon Dioxide 24 mEq/L (23-29) 12/28/17 03:58 BUN 8 mg/dL (8-23) 12/28/17 03:58 Creatinine 0.69 mg/dL (0.60-1.20) 12/28/17 03:58 Est GFR ( Amer) > 60 (> 60) 12/28/17 03:58 Est GFR (Non-Af Amer) > 60 (> 60) 12/28/17 03:58 BUN/Creatinine Ratio 12 (6-26) 12/28/17 03:58 Glucose 145 mg/dL (70-105) H 12/28/17 03:58 Calculated Osmolality 287 (280-300) 12/28/17 03:58 Calcium 8.8 mg/dL (8.6-10.3) 12/28/17 03:58 Magnesium 1.9 mg/dL (1.6-2.6) 12/28/17 03:58 Troponin I < 0.03 ng/mL (< 0.04) 12/27/17 16:55 B-Natriuretic Peptide 187 pg/mL (Less than 100) H 12/28/17 03:58 Urine Color Yellow (Yellow) 12/27/17 17:00 Urine Clarity Clear (Clear) 12/27/17 17:00 Urine pH 8.0 pH Units (5.0-8.0) 12/27/17 17:00 Ur Specific [place] 1.008 (1.010-1.025) L 12/27/17 17:00 Urine Protein Negative mg/dL (Neg-Trace) 12/27/17 17:00 Urine Glucose (UA) Normal mg/dL (Normal) 12/27/17 17:00 Urine Ketones Trace mg/dL (Negative) H 12/27/17 17:00 Urine Blood Negative (Negative) 12/27/17 17:00 Urine Nitrite Negative (Negative) 12/27/17 17:00 Urine Bilirubin Negative (Negative) 12/27/17 17:00 Urine Urobilinogen Normal mg/dL (Normal) 12/27/17 17:00 Ur Leukocyte Esterase Negative (Negative) 12/27/17 17:00 Ur Culture Indicated? NO (NO) 12/27/17 17:00 Urine Opiates Screen Negative ng/mL (Vsymrh=923) 12/27/17 17:00 Ur Barbiturates Screen Negative ng/mL (Kvivyt=824) 12/27/17 17:00 Ur Phencyclidine Scrn Negative ng/mL (Cutoff=25) 12/27/17 17:00 Ur Amphetamines Screen Negative ng/mL (Texrzh=1022) 12/27/17 17:00 U Benzodiazepines Scrn Negative ng/mL (Pcvzwk=191) 12/27/17 17:00 Urine Cocaine Screen Negative ng/mL (Cutoff= 300) 12/27/17 17:00 U Marijuana (THC) Screen Negative ng/mL (Cutoff = 50) 12/27/17 17:00 Ur Drug Screen Interp See Below 12/27/17 17:00 Consult Discharge Plan - Plan Referrals: Katelin Luther MD [Primary Care Provider] -
[2017-12-28] MEDS ORDERED: Gabapentin 100 MG CAPSULE PO SCH (15:00)
[2017-12-28] MEDS ORDERED: Haloperidol Lactate 5 MG/ML VIAL IVP ONE (21:10)
[2017-12-28] MEDS: Melatonin 3 MG TABLET PO SCH (21:29)
[2017-12-28] MEDS: levETIRAcetam 250 MG TABLET PO SCH (21:29)
[2017-12-28] MEDS: Budesonide/Formoterol 160/4.5 MDI IH SCH (21:30)
[2017-12-29] MEDS: *HR* Enoxaparin 40 MG/0.4 ML SYRINGE SQ SCH (06:14)
[2017-12-29 06:16] LABS: Basophils % 0.5 %; Eosinophils # 0.1 K/mcL (0.0-0.6); Eosinophils % 1.3 %; Hematocrit 41.1 % (35.3-44.9); Hemoglobin 13.7 g/dL (11.5-15.4); Immature Granulocytes % 0.2 % (0-4); Lymphocytes % 23.6 %; Mean Corpuscular HGB Conc 33.3 g/dL (31.6-35.5); Mean Corpuscular Hemoglobin 30.2 pg (28.0-33.3); Mean Corpuscular Volume 90.7 fL (83.0-100.0); Mean Platelet Volume 12.1 fL (9.4-12.4); Monocytes # 0.8 K/mcL (0.0-1.3); Monocytes % 8.8 %; Neutrophils # 5.6 K/mcL (1.6-8.9); Platelet Count 167 K/mcL (140-400); Red Blood Count 4.53 M/mcL (3.82-4.97); Red Cell Distribution Width 12.5 % (11.5-14.5); Segmented Neutrophils % 65.6 %
[2017-12-29 06:36] LABS: BUN/Creatinine Ratio 13 (6-26); Blood Urea Nitrogen 8 mg/dL (8-23); Calcium 8.9 mg/dL (8.6-10.3); Carbon Dioxide 21 mEq/L (23-29); Chloride 107 mEq/L (98-107); Glucose 138 mg/dL (70-105); Osmolality,Calculated 287 (280-300); Potassium 3.7 mEq/L (3.5-5.1); Sodium 138 mEq/L (136-145); eGFR For Non-African Americans > 60 (> 60)
[2017-12-29] MEDS: 0.9 % Sodium Chloride 1,000 ML IVC SCH (07:46)
[2017-12-29] MEDS: amLODIPine 5 MG TABLET PO SCH (07:48)
[2017-12-29] MEDS: levETIRAcetam 250 MG TABLET PO SCH ×2 (07:49→21:00)
[2017-12-29] MEDS: Magnesium Oxide 400 MG TABLET PO SCH (07:49)
[2017-12-29] MEDS: BuPROPion XL (24 HR) 150 MG TABLET PO SCH (07:49)
[2017-12-29] MEDS: Lisinopril 20 MG TABLET PO SCH (07:50)
[2017-12-29] MEDS: Multivit/Ca/Min/Fe/FA 1 TAB TABLET PO SCH (07:50)
[2017-12-29] MEDS: Budesonide/Formoterol 160/4.5 MDI IH SCH ×2 (08:53→19:29)
[2017-12-29] MEDS ORDERED: amLODIPine 5 MG TABLET PO SCH (09:00)
[2017-12-29] MEDS ORDERED: *HR* LORazepam 2 MG/ML VIAL IVP ONE (09:11)
[2017-12-29] MEDS: risperiDONE 0.25 MG TABLET PO SCH ×2 (13:48→21:01)
--- NOTE | 2017-12-29 14:24 | Internal Med Progress Note ---
Hospitalist Progress Note - Encounter Date of Encounter: 12/29/17 Time of Encounter: 14:12 - Subjective Interval History: Patient seen and examined at bedside today. Appears to be confused but alert and oriented 2, mild agitation persists. No family present at this time to help with history - Exam Vitals: Temp Pulse Resp BP Pulse Ox 98.3 F 66 16 153/81 98 12/29/17 11:37 12/29/17 11:37 12/29/17 11:37 12/29/17 11:37 12/29/17 11:37 Exam: PHYSICAL EXAMINATION: GENERAL: The patient is a well-developed, well-nourished female, in mild distress. She is alert and oriented 2 with intermittent episodes of confusion HEENT: Head is normocephalic and atraumatic. Extraocular muscles are intact. Pupils are equal, round, and reactive to light and accommodation. NECK: Supple. No carotid bruits. No lymphadenopathy or thyromegaly. LUNGS: Clear to auscultation. HEART: Regular rate and rhythm without murmur. ABDOMEN: Soft, nontender, and nondistended. Positive bowel sounds. No hepatosplenomegaly was noted. EXTREMITIES: Without any cyanosis, clubbing, rash, lesions or edema. NEUROLOGIC: No slurred speech or facial PSYCHIATRIC: Agitated, denies suicidal or homicidal ideations. Patient is no longer experiencing hallucinations. Continues to appear delirious at times SKIN: No ulceration or induration present. - Assessment and Plan (1) Acute delirium Current Visit: Yes Status: Acute Assessment and Plan: Again presents with acute delirium. She was recently hospitalized 2 weeks ago for the same issue. Was treated for UTI at that time. Urinalysis during this admission grossly normal. The patient says she lives at home alone and takes care of her medications herself. She is taking high doses of zoloft and is taking wellbutrin as well as gabapentin and Belsara. She reports that she has not slept almost 48 hours. Alterations in mental status could be related to sleep deprivation, and inappropriate dosing of medications and/or side effects of Belsara, (known to cause hallucinations) or a combination of all of these issues. Has underlying h/o dementia but normally pleasant. Family noticed she is confused above baseline. Psychiatry recommends adding 0.5 mg of risperidone twice a day. We will add this at this time, continue to monitor. 12/29-consult, patient improving, no longer having hallucinations but appears to be confused and slightly delirious. Confusion greater than baseline. Continue to monitor. Neurological workup unremarkable. No new neurological deficits. Consider discharge to [facility] team to discuss placement. Currently, patient has home health services 35 hours a week, but given her change in mental status and continued delirium I do not believe should be safe for discharge. (2) HTN (hypertension) Current Visit: Yes Status: Chronic Assessment and Plan: History of hypertension, BP 153/81. Patient currently taking calcium channel shelton, PONCHO inhibitor and metoprolol. Increase Norvasc to 10 mg daily. Given additional 5 mg dose now for a total of 10mg today. Monitor BP closely, continue with when necessary hydralazine (3) History of CVA (cerebrovascular accident) Current Visit: Yes Status: Chronic Assessment and Plan: History of CVA, CT of head negative for acute abnormality. Presents with altered mental state, confusion and agitation. Brain MRI negative for acute intracranial abnormality. No new neurological deficits per my exam. (4) Seizure disorder Current Visit: Yes Status: Chronic Assessment and Plan: Continue home meds (5) Fall Current Visit: Yes Status: Acute Assessment and Plan: s/p falls, presenting with confusion, and hallucinations likely d/t new medication, Belsomra Patient taking belsomra; hallucinations in medication side effect profile (6) CAD (coronary artery disease) Current Visit: Yes Status: Chronic Assessment and Plan: Continue home medications after verification. (7) GERD (gastroesophageal reflux disease) Current Visit: Yes Status: Chronic Assessment and Plan: Continue home medications after verification. (8) HLD (hyperlipidemia) Current Visit: Yes Status: Chronic (9) Depression Current Visit: Yes Status: Chronic Assessment and Plan: History of depression, does not appear depressed at this time. Continue antidepressant (10) Diastolic congestive heart failure Current Visit: Yes Status: Chronic Assessment and Plan: Remains euvolemic Euvolemic Continue home medications (11) Tobacco abuse Current Visit: Yes Status: Chronic Assessment and Plan: Discussed tobacco cessation (12) COPD (chronic obstructive pulmonary disease) Current Visit: Yes Status: Chronic Assessment and Plan: Not in acute exacerbation continue albuterol nebs and supplemental oxygen PRN. (13) DVT prophylaxis Current Visit: Yes Status: Acute Assessment and Plan: Continue lovenox 40 mg SQ QD. - Time Spent with Patient Total time spent is greater than 50% in coordination of care (as documented) at patient's floor/unit and/or counseling patient: less than 15 minutes Plan of Care Discussed with: nurse Internal Medicine: Result - Labs CBC & Chem 7: 12/29/17 05:52 12/29/17 05:52 Labs: Short CBC 12/29/17 Range/Units 05:52 WBC 8.5 (4.3-11.1) K/mcL Hgb 13.7 (11.5-15.4) g/dL Hct 41.1 (35.3-44.9) % Plt Count 167 (140-400) K/mcL Neutrophils # 5.6 (1.6-8.9) K/mcL BMP 12/29/17 05:52 Sodium 138 Potassium 3.7 Chloride 107 Carbon Dioxide 21 L BUN 8 Creatinine 0.60 Glucose 138 H Calcium 8.9 - ABG Interpretation ABG results: ABG ABG pH 7.41 pH Units (7.32-7.45) 12/27/17 19:35 ABG pCO2 41 mmHg (35-45) 12/27/17 19:35 ABG pO2 91 mmHg (85-104) 12/27/17 19:35 ABG O2 Saturation 97 % (95-98) 12/27/17 19:35 - Impressions Impressions Brain MRI 12/29/17 09:28 IMPRESSION: 1. Stable MRI of the brain. No acute intracranial abnormality. 2. Diffuse parenchymal volume loss and sequela of moderate chronic microvascular ischemic changes. Encephalomalacia in the bilateral frontal lobes and right parietal lobe compatible with prior infarctions or injuries. D/ / 12/29/2017 11:10:17 Ash Melara MD / Fallon Bradford Interpreting Provider: Ash Melara MD Consult Discharge Plan - Plan Referrals: Katelin Luther MD [Primary Care Provider] - (2) HTN (hypertension) Qualifiers: Hypertension type: essential hypertension Qualified Code(s): I10 - Essential (primary) hypertension (5) Fall Qualifiers: Encounter type: initial encounter Qualified Code(s): W19.XXXA - Unspecified fall, initial encounter (6) CAD (coronary artery disease) Qualifiers: Coronary Disease-Associated Artery/Lesion type: [place] artery [place] vs. transplanted heart: [place] heart Associated angina: without angina Qualified Code(s): I25.10 - Atherosclerotic heart disease of [place] coronary artery without angina pectoris (7) GERD (gastroesophageal reflux disease) Qualifiers: Esophagitis presence: without esophagitis Qualified Code(s): K21.9 - Gastro- esophageal reflux disease without esophagitis (8) HLD (hyperlipidemia) Qualifiers: Hyperlipidemia type: mixed hyperlipidemia Qualified Code(s): E78.2 - Mixed hyperlipidemia (9) Depression Qualifiers: Depression Type: unspecified Qualified Code(s): F32.9 - Major depressive disorder, single episode, unspecified (10) Diastolic congestive heart failure Qualifiers: Qualified Code(s): I50.32 - Chronic diastolic (congestive) heart failure (12) COPD (chronic obstructive pulmonary disease) Qualifiers: COPD type: unspecified COPD Qualified Code(s): J44.9 - Chronic obstructive pulmonary disease, unspecified
--- NOTE | 2017-12-29 17:00 | Discharge Summary ---
<Nba Monterroso - Last Filed: 12/29/17 17:56> - NOTES TO OUTPATIENT PROVIDER Notes to Outpatient Provider: Patient presented with delirium and hallucinations. Etiology unclear, likely multifactorial due to advancing dementia and sleep deprivation as well as a new prescription for Belsomra, which can cause hallucinations. Belsomra Was discontinued throughout stay in patient's hallucinations subsided however, she does continue to have some intermittent delirium. She appears to also be a demented state. Orders not resulted at time of discharge: Pending orders 12/30/17 04:00 Basic Metabolic Panel AM 0400 Complete Blood Count [HEME] AM 0400 12/31/17 04:00 Basic Metabolic Panel AM 0400 Complete Blood Count [HEME] AM 0400 Date of Encounter: 12/29/17 Time of Encounter: 16:57 - Discharge Diagnosis (1) HTN (hypertension) Priority: Secondary Status: Chronic Qualifiers: Hypertension type: essential hypertension Qualified Code(s): I10 - Essential (primary) hypertension (2) History of CVA (cerebrovascular accident) Priority: Secondary Status: Chronic (3) Seizure disorder Priority: Secondary Status: Chronic (4) Fall Priority: Secondary Status: Acute Qualifiers: Encounter type: initial encounter Qualified Code(s): W19.XXXA - Unspecified fall, initial encounter (5) CAD (coronary artery disease) Priority: Secondary Status: Chronic Qualifiers: Coronary Disease-Associated Artery/Lesion type: [place] artery [place] vs. transplanted heart: [place] heart Associated angina: without angina Qualified Code(s): I25.10 - Atherosclerotic heart disease of [place] coronary artery without angina pectoris (6) GERD (gastroesophageal reflux disease) Priority: Secondary Status: Chronic Qualifiers: Esophagitis presence: without esophagitis Qualified Code(s): K21.9 - Gastro -esophageal reflux disease without esophagitis (7) HLD (hyperlipidemia) Priority: Secondary Status: Chronic Qualifiers: Hyperlipidemia type: mixed hyperlipidemia Qualified Code(s): E78.2 - Mixed hyperlipidemia (8) Depression Priority: Secondary Status: Chronic Qualifiers: Depression Type: unspecified Qualified Code(s): F32.9 - Major depressive disorder, single episode, unspecified (9) Diastolic congestive heart failure Priority: Secondary Status: Chronic (10) Tobacco abuse Priority: Secondary Status: Chronic (11) COPD (chronic obstructive pulmonary disease) Priority: Secondary Status: Chronic Qualifiers: COPD type: unspecified COPD Qualified Code(s): J44.9 - Chronic obstructive pulmonary disease, unspecified (12) DVT prophylaxis Priority: Secondary Status: Acute (13) Acute delirium Priority: Primary Status: Acute Hospital course: Ms. Farris is a 72 year old female with a PMH of seizure disorder, CVA and questionable dementia. She lives at home independently in her home. She presented to [facility] ED in a confused and agitated state with hallucinations. She was recently admitted to [facility] and treated with Rocephin for a UTI. During the stay neurology and psychiatry were consult. Neurology rule out CVA and seizure disorder as likely cause of altered mental state. At that time she was diagnosed with delirium versus dementia. Upon last admission is recommended she discharged to SNF. The patient was post discharge to [facility] however, the day of discharge her mental status returned to baseline. However, she returns this time with altered mental status and new hallucinations. As noted the patient was recently started on Belsomra as she has been experiencing sleep deprivation and insomnia. The combination of sleep deprivation, insomnia and Belsomra is likely led to her hallucinations. With cessation of this medication hallucinations subsided. However, the patient does continue to have some delirium and intermittent confusion. Unclear if this is caused by dementia alone. Throughout the stay patient had CT of head and MRI which was negative for acute findings. Up until this point the patient has had complete capacity and able to make decisions regarding her healthcare. However, with alterations in mental status this time I feel she is unsafe to make her own decisions. She has a sister who is next of kin he was spoken with her psychiatric social worker supervisor who believes that the patient should discharged to an SNF for closer monitoring. Plan is to discharge to [facility]. The patient remains in a confused state but Overall, clinically continuing to improve. There are no pending labs or studies at time of discharge. --Patient will be receiving new prescriptions for risperidone 0.5 mg twice a day at discharge Discharge discussed with: patient, family, nurse - Time Spent with Patient Total time spent providing and/or coordinating discharge services: - Discharge Medications Home Medications: Alendronate Sodium [Fosamax] 70 mg PO QWEEK 12/09/17 [History] Ammonium Lactate 1 appl TP BID PRN 12/09/17 [History] Budesonide/Formoterol 160/4.5 [Symbicort 160/4.5] 2 puff IH BIDR 12/09/17 [ History] Bupropion HCl [Wellbutrin Xl] 150 mg PO DAILY 12/09/17 [History] Ergocalciferol (VITAMIN D2) [Vitamin D2] 50,000 units PO SA 12/09/17 [History] LevETIRAcetam [Keppra] 500 mg PO BID 12/09/17 [History] Lisinopril [Zestril] 40 mg PO DAILY 12/09/17 [History] Multivitamin [One Daily Essential] 1 tab PO DAILY 12/09/17 [History] Pantoprazole Sodium [Protonix] 40 mg PO DAILY 12/09/17 [History] amLODIPine [Norvasc] 5 mg PO DAILY 12/09/17 [History] Albuterol Sulfate [Ventolin Hfa] 2 puff IH Q4HR PRN 12/28/17 [History] Gabapentin [Neurontin] 300 mg PO BID 12/28/17 [History] Gabapentin [Neurontin] 600 mg PO HS 12/28/17 [History] Ibuprofen [Ibu] 800 mg PO TID PRN 12/28/17 [History] Magnesium 250 mg PO DAILY 12/28/17 [History] Metoprolol Tartrate [Lopressor] 25 mg PO BID 12/28/17 [History] Sertraline [Zoloft] 200 mg PO DAILY 12/28/17 [History] risperiDONE [RisperDAL] 0.5 mg PO BID #0 tablet 12/29/17 [Rx] Allergies/Adverse Reactions: 3 Allergy/AdvReac Type Severity Reaction Status Date / Time hydrocodone [From [place]] Allergy Rash Verified 12/27/17 16:21 Influenza Virus Vaccines Allergy See Verified 12/27/17 16:21 Comments Iodinated Contrast- Oral and Allergy Anaphylaxis Verified 12/27/17 16:21 IV Dye [Iodinated Contrast Media - IV Dye] Date of admission: 12/27/17 21:18 Primary care physician: Katelin Luther MD - Constitutional Vitals: Temp Pulse Resp BP Pulse Ox 97.4 F L 59 14 158/77 96 12/29/17 15:52 12/29/17 15:52 12/29/17 15:52 12/29/17 15:52 12/29/17 15:52 General appearance: Present: cooperative, A&O X 1, no acute distress, underweight. Absent: answers questions appropriately - Head Head exam: Present: atraumatic, normocephalic - Eye Eye exam: Present: PERRL, conjuntiva pink, sclera anicteric Pupils: Present: PERRL - Neck Neck exam general surgery: Present: supple, trachea midline. Absent: lymphadenopathy - Respiratory Respiratory exam: Present: CTAB. Absent: accessory muscle use, rales, rhonchi, wheezes - Cardiovascular Cardiovascular exam: Present: RRR, +S1, +S2. Absent: diastolic murmur, gallop, rubs, systolic murmur - GI/Abdominal GI/Abdominal exam: Present: normal bowel sounds, soft, no peritoneal signs. Absent: distended, tenderness - Extremities Exam Extremities exam: Present: warm, radial pulses palpable and symmetrical. Absent : calf tenderness, cyanotic, pedal edema - Neurological Exam Neurological exam: Present: CN II-XII intact, oriented X3, no focal deficits. Absent: pronater drift, facial droop, speech deficit - Psychiatric Psychiatric exam: Present: agitated - Skin Skin exam: Present: dry, intact - Patient Status Disposition: Transfer SNF Condition: Fair Functional capacity at discharge: independent ambulation Overall status at discharge: patient is progressing back to baseline - Discharge Instructions Instructions: Altered Mental Status (GEN) Follow Up With: Katelin Luther MD [Primary Care Provider] - Additional Instructions: Follow-up appointments: If there is not an appointment listed below, please call your physician and schedule a follow-up appointment. If you have congestive heart failure and your symptoms return, make an appointment with your physician. Medication List: Carry an up to date list of medications you are taking at all time. We have given you an updated medication list including any new medications that you have been prescribed. Please provide that list to your primary provider Symptoms: If your condition changes or you experience any of the following symptoms, notify your physician immediately: Unusual or worsening pain, fever, persistent nausea and vomiting, bleeding, increase in swelling (especially in your legs), sudden weight gain, extreme dizziness, chest pain, increased drainage or redness from a wound or incision. Go to the emergency department if you experience a problem with breathing. Weights: If you have a history of swelling or shortness of breath, weigh yourself daily and notify your physician if you have a weight gain of two or more pounds in one day or 5 or more pounds in a week. If you experience any of the warning signs for stroke: Sudden numbness or weakness of the face, arm or leg; especially on one side of the body, sudden confusion, trouble speaking or understanding, sudden trouble seeing in one or both eyes, sudden trouble walking, dizziness, loss of balance or coordination, sudden sever headache with no cause; Call 911 or go to the emergency room. Stroke is a medical emergency. Some risk factors for stroke: Age, cigarette smoking, diabetes, excessive alcohol consumption, family history , high blood pressure, overweight, physical inactivity, prior stroke, heart attack, diagnosis of carotid artery stenosis or other artery disease. If you smoke, STOP: Smoking or tobacco use significantly increases your risk of heart and lung disease. Your chance of disease greatly increases if you continue to smoke. For more information, call the [place] tobacco quit line for smoking cessation 9-470- QUIT-NOW ( ) - Diet and Activity Activity: increase activity as tolerated, resume usual activities as tolerated <Mara Price - Last Filed: 12/31/17 14:10> Date of Encounter: 12/31/17 Time of Encounter: 09:40 - Discharge Diagnosis (1) HTN (hypertension) Status: Chronic Assessment and Plan: Stable, chronic. Continue home medications. Qualifiers: Hypertension type: essential hypertension Qualified Code(s): I10 - Essential (primary) hypertension (2) History of CVA (cerebrovascular accident) Priority: Secondary Status: Chronic Assessment and Plan: Prior history. Continue to monitor for safety and falls . (3) Seizure disorder Priority: Secondary Status: Chronic Assessment and Plan: Chronic. Seizure precautions. Continue Keppra. (4) DVT prophylaxis Priority: Secondary Status: Acute Assessment and Plan: Lovenox SQ daily (5) Fall Status: Acute Assessment and Plan: Patient presented status post falls at home associated with confusion, hallucinations, likely due to start a new medication. Pt was stared on Belsomra , it has been stopped. Qualifiers: Encounter type: initial encounter Qualified Code(s): W19.XXXA - Unspecified fall, initial encounter (6) CAD (coronary artery disease) Priority: Secondary Status: Chronic Assessment and Plan: No chest pain, chronic. Continue home medications. Qualifiers: Coronary Disease-Associated Artery/Lesion type: [place] artery [place] vs. transplanted heart: [place] heart Associated angina: without angina Qualified Code(s): I25.10 - Atherosclerotic heart disease of [place] coronary artery without angina pectoris (7) GERD (gastroesophageal reflux disease) Priority: Secondary Status: Chronic Assessment and Plan: Chronic. Continue home medications. Qualifiers: Esophagitis presence: without esophagitis Qualified Code(s): K21.9 - Gastro -esophageal reflux disease without esophagitis (8) HLD (hyperlipidemia) Priority: Secondary Status: Chronic Assessment and Plan: Chronic.. Continue home medications Qualifiers: Hyperlipidemia type: mixed hyperlipidemia Qualified Code(s): E78.2 - Mixed hyperlipidemia (9) Depression Priority: Secondary Status: Chronic Assessment and Plan: Chronic. Continue home medications. Qualifiers: Depression Type: unspecified Qualified Code(s): F32.9 - Major depressive disorder, single episode, unspecified (10) Diastolic congestive heart failure Priority: Secondary Status: Chronic Assessment and Plan: No acute exacerbation. Patient is euvolemic and lungs are clear and diminished throughout. O2 as needed to maintain sats greater than 92%. Recommend continued daily weights after discharge. (11) Tobacco abuse Priority: Secondary Status: Chronic Assessment and Plan: Chronic. Patient denies need for nicotine replacement therapy. (12) COPD (chronic obstructive pulmonary disease) Priority: Secondary Status: Chronic Assessment and Plan: No acute exacerbation. Lungs are clear and diminished, patient is not requiring supplemental oxygen, patient is in no distress. Continue home medications. Qualifiers: COPD type: unspecified COPD Qualified Code(s): J44.9 - Chronic obstructive pulmonary disease, unspecified (13) Acute delirium Priority: Secondary Status: Resolved Assessment and Plan: Resolved. Patient is at baseline mentation. She is alert, oriented, conversive , answers questions appropriately. Hospital course: Ms. Farris is a 72 year old female with past medical history of CVA, GBS, hypertension, seizure disorder, COPD, lumbar compression fracture, CAD, GERD, hyperlipidemia, depression, and tobacco abuse. Pt is being discharged in stable condition to [facility] for closer monitoring than she is getting at home. Patient was admitted for mental status changes and hallucinations. Prior admission for similar condition and at that time his recommend that she be discharged to SNF. She returned to baseline and went home. Again, with this admission, she has returned to her baseline mentation will be discharged to [facility] for monitoring. CT head and MRI brain negative, labs and vitals are stable. Patient is alert, conversive, answers questions appropriately. She is agreeable to being discharged to [facility] today. Discharge discussed with: case management - Time Spent with Patient Total time spent providing and/or coordinating discharge services: Less than 30 minutes Date of admission: 12/30/17 16:37 Primary care physician: Katelin Luther MD Discharging clinician: Mara Price Anticipated date of discharge: 12/31/17 - Constitutional Vitals: Temp Pulse Resp BP Pulse Ox 97.4 F L 56 15 148/88 98 12/31/17 10:31 12/31/17 10:31 12/31/17 10:31 12/31/17 10:31 12/31/17 10:31 General appearance: Present: cooperative, A&O X 2, pleasant, no acute distress, underweight, answers questions appropriately - Head Head exam: Present: atraumatic, normal inspection, normocephalic - Eye Eye exam: Present: normal appearance, conjuntiva pink, sclera anicteric - Neck Neck exam general surgery: Present: normal inspection, supple, trachea midline. Absent: lymphadenopathy, tenderness - Respiratory Respiratory exam: Present: decreased breath sounds, CTAB. Absent: accessory muscle use, chest wall tenderness, rales, respiratory distress, rhonchi, wheezes - Cardiovascular Cardiovascular exam: Present: RRR, +S1, +S2. Absent: diastolic murmur, gallop, rubs, systolic murmur - GI/Abdominal GI/Abdominal exam: Present: normal bowel sounds, soft. Absent: distended, hepatomegaly, tenderness - Extremities Exam Extremities exam: Present: normal capillary refill, normal inspection, warm, radial pulses palpable and symmetrical. Absent: calf tenderness, cyanotic, pedal edema, tenderness - Neurological Exam Neurological exam: Present: alert, oriented X3, no focal deficits, pronater drift. Absent: facial droop, speech deficit - Skin Skin exam: Present: dry, intact, normal color, warm. Absent: rash - Patient Status Functional capacity at discharge: uses cane/walker Overall status at discharge: patient is progressing back to baseline - Diet and Activity Activity: as per physical therapy, resume usual activities as tolerated Diet: advance to your usual diet
--- NOTE | 2017-12-29 17:35 | Electrocardiograph Report ---
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
[2017-12-29] MEDS: Melatonin 3 MG TABLET PO SCH (21:01)
[2017-12-30 05:15] LABS: Basophils % 0.5 %; Eosinophils # 0.1 K/mcL (0.0-0.6); Eosinophils % 1.7 %; Hematocrit 38.1 % (35.3-44.9); Hemoglobin 12.7 g/dL (11.5-15.4); Immature Granulocytes % 0.2 % (0-4); Lymphocytes # 2.8 K/mcL (0.6-4.6); Mean Corpuscular HGB Conc 33.3 g/dL (31.6-35.5); Mean Corpuscular Hemoglobin 30.6 pg (28.0-33.3); Mean Corpuscular Volume 91.8 fL (83.0-100.0); Mean Platelet Volume 12.1 fL (9.4-12.4); Monocytes # 0.8 K/mcL (0.0-1.3); Monocytes % 9.4 %; Neutrophils # 4.3 K/mcL (1.6-8.9); Platelet Count 152 K/mcL (140-400); Red Blood Count 4.15 M/mcL (3.82-4.97); Red Cell Distribution Width 12.7 % (11.5-14.5); Segmented Neutrophils % 53.2 %
[2017-12-30 05:31] LABS: BUN/Creatinine Ratio 17 (6-26); Blood Urea Nitrogen 12 mg/dL (8-23); Carbon Dioxide 20 mEq/L (23-29); Chloride 112 mEq/L (98-107); Glucose 113 mg/dL (70-105); Osmolality,Calculated 289 (280-300); Potassium 3.6 mEq/L (3.5-5.1); Sodium 139 mEq/L (136-145); eGFR For Non-African Americans > 60 (> 60)
[2017-12-30] MEDS: *HR* Enoxaparin 40 MG/0.4 ML SYRINGE SQ SCH (05:51)
[2017-12-30] MEDS: risperiDONE 0.25 MG TABLET PO SCH ×2 (07:55→20:35)
[2017-12-30] MEDS: Lisinopril 20 MG TABLET PO SCH (07:55)
[2017-12-30] MEDS: Budesonide/Formoterol 160/4.5 MDI IH SCH ×2 (07:56→20:00)
[2017-12-30] MEDS: levETIRAcetam 250 MG TABLET PO SCH ×2 (07:56→20:35)
[2017-12-30] MEDS: amLODIPine 5 MG TABLET PO SCH (07:56)
[2017-12-30] MEDS: Magnesium Oxide 400 MG TABLET PO SCH (07:56)
[2017-12-30] MEDS: Multivit/Ca/Min/Fe/FA 1 TAB TABLET PO SCH (07:56)
[2017-12-30] MEDS: BuPROPion XL (24 HR) 150 MG TABLET PO SCH (07:57)
[2017-12-30] MEDS: 0.9 % Sodium Chloride 1,000 ML IVC SCH (08:01)
--- NOTE | 2017-12-30 15:55 | Internal Med Progress Note ---
Hospitalist Progress Note - Encounter Date of Encounter: 12/30/17 Time of Encounter: 09:15 - Subjective Interval History: Patient was seen and assessed at bedside at 9:15 AM. She is alert, oriented, answers questions appropriately. She reports chronic left hip pain from old healing lumbar compression fracture, denies need for more pain medication. Patient is aware that she is waiting on ECF placement at this time, denies any questions or concerns. - Exam Vitals: Temp Pulse Resp BP Pulse Ox 98.9 F 85 16 156/79 99 12/30/17 15:11 12/30/17 15:11 12/30/17 15:11 12/30/17 15:11 12/30/17 15:11 Exam: Patient is alert, awake, oriented 3, speech is clear. She has no focal neurological deficits, no nystagmus, no slurred speech, no facial droop or pronator drift. 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 He has no anterior-posterior cervical lymphadenopathy, her trachea is midline, no thyromegaly noted. S1 and S2 without bradycardia or tachycardia , no gallops, clicks, murmurs. Lungs are clear and anterior posterior lung briones without wheezing, rhonchi, or rales. Abdomen is soft, slightly rounded, nontender to palpation with bowel sounds present. She denies any urinary symptoms. She has no peripheral edema and radial and pedal pulses are +1 to +2 bilaterally. - Assessment and Plan (1) HTN (hypertension) Current Visit: Yes Status: Chronic Assessment and Plan: chronic. Continue home medication (2) History of CVA (cerebrovascular accident) Current Visit: Yes Status: Chronic Assessment and Plan: History of CVA, CT of head negative for acute abnormality. Presented with altered mental state, confusion and agitation, patient appears to have returned to baseline. Brain MRI negative for acute intracranial abnormality. No new neurological deficits. Continue to monitor for safety and falls. (3) Seizure disorder Current Visit: Yes Status: Chronic Assessment and Plan: Continue Keppra. SEizure precautions in place. (4) DVT prophylaxis Current Visit: Yes Status: Acute Assessment and Plan: Lovenox SQ daily (5) Fall Current Visit: Yes Status: Acute Assessment and Plan: Pt with falls and confusion on admission. Pt has returned to her baseline mentation. Likely secondary to new medication, Belsomra, which has been stopped, as well as high doses of Zoloft, Wellbutrin, and Gabapentin. Pt takes care of her own medications, question appropriate dosing at home. Monitor for safety and falls Pt is going to be discharged to [facility] for PT/OT. NO bed available today, pt will stay overnight until bed available. (6) CAD (coronary artery disease) Current Visit: Yes Status: Chronic Assessment and Plan: Chronic. Pt denies chest pain. Continue home medications. (7) GERD (gastroesophageal reflux disease) Current Visit: Yes Status: Chronic Assessment and Plan: Chronic. Continue home dose of Priosec. (8) HLD (hyperlipidemia) Current Visit: Yes Status: Chronic Assessment and Plan: Chronic.No home medication verified. (9) Depression Current Visit: Yes Status: Chronic Assessment and Plan: History of depression, stable. Question appropriate dosing of medication at home. Patient takes 150 mg of Wellbutrin XL daily, as well as 200 mg of Zoloft daily. Continue home medications. (10) Diastolic congestive heart failure Current Visit: Yes Status: Chronic Assessment and Plan: No acute exacerbation. Continue to monitor intake and output, daily weights, telemetry. (11) Tobacco abuse Current Visit: Yes Status: Chronic Assessment and Plan: Discussed tobacco cessation, patient denies need for tobacco replacement therapy. (12) COPD (chronic obstructive pulmonary disease) Current Visit: Yes Status: Chronic Assessment and Plan: No acute exacerbation. Lungs are diminished and clear throughout. Continue O2 as needed to maintain sats greater than 92%. Continue inhalers. (13) Acute delirium Current Visit: Yes Status: Resolved Assessment and Plan: Resolved. Patient is alert, oriented 3, answers questions appropriately, is calm and coherent. Continue to monitor overnight. Patient not able to be discharged due to bed availability at [facility]. She will stay here until bed is available. - Time Spent with Patient Total time spent is greater than 50% in coordination of care (as documented) at patient's floor/unit and/or counseling patient: less than 15 minutes Plan of Care Discussed with: patient Internal Medicine: Result - Labs CBC & Chem 7: 12/30/17 04:49 12/30/17 04:49 Labs: Short CBC 12/30/17 Range/Units 04:49 WBC 8.1 (4.3-11.1) K/mcL Hgb 12.7 (11.5-15.4) g/dL Hct 38.1 (35.3-44.9) % Plt Count 152 (140-400) K/mcL Neutrophils # 4.3 (1.6-8.9) K/mcL BMP 12/30/17 04:49 Sodium 139 Potassium 3.6 Chloride 112 H Carbon Dioxide 20 L BUN 12 Creatinine 0.69 Glucose 113 H Calcium 9.0 - ABG Interpretation ABG results: ABG ABG pH 7.41 pH Units (7.32-7.45) 12/27/17 19:35 ABG pCO2 41 mmHg (35-45) 12/27/17 19:35 ABG pO2 91 mmHg (85-104) 12/27/17 19:35 ABG O2 Saturation 97 % (95-98) 12/27/17 19:35 - Impressions Impressions Brain MRI 12/29/17 09:28 IMPRESSION: 1. Stable MRI of the brain. No acute intracranial abnormality. 2. Diffuse parenchymal volume loss and sequela of moderate chronic microvascular ischemic changes. Encephalomalacia in the bilateral frontal lobes and right parietal lobe compatible with prior infarctions or injuries. D/ / 12/29/2017 11:10:17 Ash Melara MD / Fallon Bradford Interpreting Provider: Ash Melara MD Consult Discharge Plan - Plan Instructions: Altered Mental Status (GEN) Additional Instructions: Follow-up appointments: If there is not an appointment listed below, please call your physician and schedule a follow-up appointment. If you have congestive heart failure and your symptoms return, make an appointment with your physician. Medication List: Carry an up to date list of medications you are taking at all time. We have given you an updated medication list including any new medications that you have been prescribed. Please provide that list to your primary provider Symptoms: If your condition changes or you experience any of the following symptoms, notify your physician immediately: Unusual or worsening pain, fever, persistent nausea and vomiting, bleeding, increase in swelling (especially in your legs), sudden weight gain, extreme dizziness, chest pain, increased drainage or redness from a wound or incision. Go to the emergency department if you experience a problem with breathing. Weights: If you have a history of swelling or shortness of breath, weigh yourself daily and notify your physician if you have a weight gain of two or more pounds in one day or 5 or more pounds in a week. If you experience any of the warning signs for stroke: Sudden numbness or weakness of the face, arm or leg; especially on one side of the body, sudden confusion, trouble speaking or understanding, sudden trouble seeing in one or both eyes, sudden trouble walking, dizziness, loss of balance or coordination, sudden sever headache with no cause; Call 911 or go to the emergency room. Stroke is a medical emergency. Some risk factors for stroke: Age, cigarette smoking, diabetes, excessive alcohol consumption, family history , high blood pressure, overweight, physical inactivity, prior stroke, heart attack, diagnosis of carotid artery stenosis or other artery disease. If you smoke, STOP: Smoking or tobacco use significantly increases your risk of heart and lung disease. Your chance of disease greatly increases if you continue to smoke. For more information, call the [place] tobacco quit line for smoking cessation -NOW ( ) Referrals: Katelin Luther MD [Primary Care Provider] - (1) HTN (hypertension) Qualifiers: Hypertension type: essential hypertension Qualified Code(s): I10 - Essential (primary) hypertension (5) Fall Qualifiers: Encounter type: initial encounter Qualified Code(s): W19.XXXA - Unspecified fall, initial encounter (6) CAD (coronary artery disease) Qualifiers: Coronary Disease-Associated Artery/Lesion type: [place] artery [place] vs. transplanted heart: [place] heart Associated angina: without angina Qualified Code(s): I25.10 - Atherosclerotic heart disease of [place] coronary artery without angina pectoris (7) GERD (gastroesophageal reflux disease) Qualifiers: Esophagitis presence: without esophagitis Qualified Code(s): K21.9 - Gastro- esophageal reflux disease without esophagitis (8) HLD (hyperlipidemia) Qualifiers: Hyperlipidemia type: mixed hyperlipidemia Qualified Code(s): E78.2 - Mixed hyperlipidemia (9) Depression Qualifiers: Depression Type: unspecified Qualified Code(s): F32.9 - Major depressive disorder, single episode, unspecified (12) COPD (chronic obstructive pulmonary disease) Qualifiers: COPD type: unspecified COPD Qualified Code(s): J44.9 - Chronic obstructive pulmonary disease, unspecified
[2017-12-30] MEDS: Melatonin 3 MG TABLET PO SCH (20:35)
[2017-12-31 04:59] LABS: Basophils % 0.5 %; Eosinophils # 0.2 K/mcL (0.0-0.6); Eosinophils % 2.5 %; Hematocrit 43.1 % (35.3-44.9); Immature Granulocytes % 0.1 % (0-4); Lymphocytes # 3.2 K/mcL (0.6-4.6); Lymphocytes % 38.1 %; Mean Corpuscular HGB Conc 33.2 g/dL (31.6-35.5); Mean Corpuscular Volume 93.5 fL (83.0-100.0); Mean Platelet Volume 11.9 fL (9.4-12.4); Monocytes # 0.8 K/mcL (0.0-1.3); Monocytes % 9.8 %; Neutrophils # 4.1 K/mcL (1.6-8.9); Platelet Count 135 K/mcL (140-400); Red Blood Count 4.61 M/mcL (3.82-4.97); Red Cell Distribution Width 12.6 % (11.5-14.5)
[2017-12-31 05:01] LABS: Hemoglobin 14.3 g/dL (11.5-15.4)
[2017-12-31] MEDS: *HR* Enoxaparin 40 MG/0.4 ML SYRINGE SQ SCH (05:38)
[2017-12-31] MEDS: 0.9 % Sodium Chloride 1,000 ML IVC SCH (05:39)
[2017-12-31 05:47] LABS: BUN/Creatinine Ratio 20 (6-26); Blood Urea Nitrogen 13 mg/dL (8-23); Calcium 9.3 mg/dL (8.6-10.3); Carbon Dioxide 17 mEq/L (23-29); Chloride 110 mEq/L (98-107); Glucose 118 mg/dL (70-105); Osmolality,Calculated 283 (280-300); Potassium 3.6 mEq/L (3.5-5.1); Sodium 136 mEq/L (136-145); eGFR For Non-African Americans > 60 (> 60)
[2017-12-31] MEDS: levETIRAcetam 250 MG TABLET PO SCH (07:33)
[2017-12-31] MEDS: risperiDONE 0.25 MG TABLET PO SCH (07:33)
[2017-12-31] MEDS: BuPROPion XL (24 HR) 150 MG TABLET PO SCH (07:33)
[2017-12-31] MEDS: Magnesium Oxide 400 MG TABLET PO SCH (07:33)
[2017-12-31] MEDS: Lisinopril 20 MG TABLET PO SCH (07:34)
[2017-12-31] MEDS: Multivit/Ca/Min/Fe/FA 1 TAB TABLET PO SCH (07:35)
[2017-12-31] MEDS: amLODIPine 5 MG TABLET PO SCH (07:35)
[2017-12-31] MEDS: Budesonide/Formoterol 160/4.5 MDI IH SCH (10:00)
[2017-12-31 10:34] VITALS: BP 148/88
--- NOTE | 2017-12-31 14:58 | Physician Discharge Referral ---
ExtendedCare Referral Info Transfer To: [facility] Provider in Charge after Transfer: PCP Institutional Level of Care: Intermediate - Diagnosis (1) HTN (hypertension) Priority: Secondary Status: Chronic (2) History of CVA (cerebrovascular accident) Priority: Secondary Status: Chronic (3) Seizure disorder Priority: Secondary Status: Chronic (4) DVT prophylaxis Priority: Secondary Status: Acute (5) Fall Priority: Secondary Status: Acute (6) CAD (coronary artery disease) Priority: Secondary Status: Chronic (7) GERD (gastroesophageal reflux disease) Priority: Secondary Status: Chronic (8) HLD (hyperlipidemia) Priority: Secondary Status: Chronic (9) Depression Priority: Secondary Status: Chronic (10) Diastolic congestive heart failure Priority: Secondary Status: Chronic (11) Tobacco abuse Priority: Secondary Status: Chronic (12) COPD (chronic obstructive pulmonary disease) Priority: Secondary Status: Chronic (13) Acute delirium Priority: Primary Status: Resolved Prognosis: Fair - Transfer Medications Home Medications: Alendronate Sodium [Fosamax] 70 mg PO QWEEK 12/09/17 [History] Ammonium Lactate 1 appl TP BID PRN 12/09/17 [History] Budesonide/Formoterol 160/4.5 [Symbicort 160/4.5] 2 puff IH BIDR 12/09/17 [ History] Bupropion HCl [Wellbutrin Xl] 150 mg PO DAILY 12/09/17 [History] Ergocalciferol (VITAMIN D2) [Vitamin D2] 50,000 units PO SA 12/09/17 [History] LevETIRAcetam [Keppra] 500 mg PO BID 12/09/17 [History] Lisinopril [Zestril] 40 mg PO DAILY 12/09/17 [History] Multivitamin [One Daily Essential] 1 tab PO DAILY 12/09/17 [History] Pantoprazole Sodium [Protonix] 40 mg PO DAILY 12/09/17 [History] amLODIPine [Norvasc] 5 mg PO DAILY 12/09/17 [History] Albuterol Sulfate [Ventolin Hfa] 2 puff IH Q4HR PRN 12/28/17 [History] Gabapentin [Neurontin] 300 mg PO BID 12/28/17 [History] Gabapentin [Neurontin] 600 mg PO HS 12/28/17 [History] Ibuprofen [Ibu] 800 mg PO TID PRN 12/28/17 [History] Magnesium 250 mg PO DAILY 12/28/17 [History] Metoprolol Tartrate [Lopressor] 25 mg PO BID 12/28/17 [History] Sertraline [Zoloft] 200 mg PO DAILY 12/28/17 [History] risperiDONE [RisperDAL] 0.5 mg PO BID #0 tablet 12/29/17 [Rx] Allergies/Adverse Reactions: 3 Allergy/AdvReac Type Severity Reaction Status Date / Time hydrocodone [From [place]] Allergy Rash Verified 12/27/17 16:21 Influenza Virus Vaccines Allergy See Verified 12/27/17 16:21 Comments Iodinated Contrast- Oral and Allergy Anaphylaxis Verified 12/27/17 16:21 IV Dye [Iodinated Contrast Media - IV Dye] - Respiratory Orders Smoking Cessation: Smoking cessation has been advised. For more information, call the [place] Tobacco Quit Line at 0-896-PTLC-NOW. - Lab Orders Lab Orders: 2 Step Mantoux Test per State regulation, CBC, U/A, Fili 17, CXR yearly - Ancillary Orders May use pressure relief devices daily prn, May consult with Dentist, Body Team Member, Etl Database Developer PRN - Advance Directives Code Status: Full Code - Mobility Orders Chair, Ambulate - Rehabiliation Orders Rehab Potential: Fair Rehab Orders: Sternal Precautions, ROM Exercises, Evaluation for Physical Therapy, Evaluation for Occupational Therapy - Treatments Skin tear care topically daily PRN per policy, May check for fecal impaction rectally daily PRN, Fleet enema rectally every other day PRN cleansing purposes - Diet Orders Regular CERTIFICATION: I certify that the transfer of the above named patient to an Extended Care Facility is necessary for the continuing treatment of the diagnosis listed. The above information is true and accurate reflection of patient's current condition. Confidential - Redisclosure prohibited without a patient's written consent.
== END 2017-12-31 15:15 | DRG 880 ==
LOC: 3BNU 16:09 → EMEROO 16:09 → 3BNU 22:40
PROVIDERS: ADMIT Family Medicine; ATTEND Family Medicine

== ENCOUNTER 2018-10-27 06:12 | Inpatient (IN) ==
[2018-10-27] MEDS ORDERED: CeFAZolin Syr 2,000MG/20 ML 2,000 MG/20 ML SYRINGE IVPB ONE (06:41)
[2018-10-27] MEDS ORDERED: Albuterol 2.5 MG/3 ML NEBULIZER IH ONE (06:57)
[2018-10-27] MEDS ORDERED: Lidocaine -MPF 4% 5 ML AMPUL ONE (07:00)
[2018-10-27] MEDS ORDERED: *HR* Succinylcholine 200 MG/10 ML VIAL IVP ONE (07:00)
[2018-10-27] MEDS ORDERED: Dexamethasone 4 MG/ML VIAL ONE (07:00)
[2018-10-27] MEDS ORDERED: Lidocaine -MPF 2% 2 ML VIAL ONE ×2 (07:00→11:00)
[2018-10-27] MEDS ORDERED: Ondansetron 4 MG/2 ML VIAL ONE (07:00)
[2018-10-27] MEDS ORDERED: *HR* FentaNYL (PF) 100 MCG/2 ML VIAL ONE (07:01)
[2018-10-27] MEDS ORDERED: *HR* Propofol 200 MG/20 ML VIAL IVP ONE ×2 (07:01→09:01)
[2018-10-27] MEDS ORDERED: *HR* Remifentanil 1 MG VIAL IVP ONE (07:12)
[2018-10-27] MEDS ORDERED: *HR* Phenylephrine 10 MG/ML VIAL ONE (07:18)
--- NOTE | 2018-10-27 07:26 | Anesthesia Evaluation PreOp ---
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 (10 years ago), CVA (CVA 3 years ago, no residual deficit), Other (H/O [place], legally blind) Other Medical History: GERD Anesthesia History: No Prior Anesthetic Complications, Past Anesthesia Alcohol Use: none Drug use: none Medications and Allergies Alendronate Sodium [Fosamax] 70 mg PO QWEEK 12/09/17 [History] Ammonium Lactate 1 appl TP BID PRN 12/09/17 [History] Budesonide/Formoterol 160/4.5 [Symbicort 160/4.5] 2 puff IH BIDR 12/09/17 [History] Bupropion HCl [Wellbutrin Xl] 150 mg PO DAILY 12/09/17 [History] Ergocalciferol (VITAMIN D2) [Vitamin D2] 50,000 units PO SA 12/09/17 [History] LevETIRAcetam [Keppra] 500 mg PO BID 12/09/17 [History] Lisinopril [Zestril] 40 mg PO DAILY 12/09/17 [History] Multivitamin [One Daily Essential] 1 tab PO DAILY 12/09/17 [History] Pantoprazole Sodium [Protonix] 40 mg PO DAILY 12/09/17 [History] amLODIPine [Norvasc] 5 mg PO DAILY 12/09/17 [History] Albuterol Sulfate [Ventolin Hfa] 2 puff IH Q4HR PRN 12/28/17 [History] Gabapentin [Neurontin] 300 mg PO BID 12/28/17 [History] Gabapentin [Neurontin] 600 mg PO HS 12/28/17 [History] Ibuprofen [Ibu] 800 mg PO TID PRN 12/28/17 [History] Magnesium 250 mg PO DAILY 12/28/17 [History] Metoprolol Tartrate [Lopressor] 25 mg PO BID 12/28/17 [History] Sertraline [Zoloft] 200 mg PO DAILY 12/28/17 [History] risperiDONE [RisperDAL] 0.5 mg PO BID #0 tablet 12/29/17 [Rx] Allergy/AdvReac Type Severity Reaction Status Date / Time hydrocodone [From [place]] Allergy Rash Verified 12/27/17 16:21 Influenza Virus Vaccines Allergy See Verified 12/27/17 16:21 Comments Iodinated Contrast- Oral and Allergy Anaphylaxis Verified 12/27/17 16:21 IV Dye [Iodinated Contrast Media - IV Dye] - Meds/Allergy Pre-op Review Medications Reviewed: Yes Allergies Reviewed: Yes Beta Blockers on Current Med List: Yes If Beta Blockers taken, Date/Time (Last Dose taken): 10/27/2018 at 0500 Anesthesia Results - Labs Laboratory Tests 10/23/18 10/23/18 10/23/18 10:54 10:54 10:54 WBC 10.3 Hgb 15.0 Hct 44.7 Plt Count 171 PT 11.2 INR 1.0 APTT 34.0 Sodium 137 Potassium 4.7 BUN 24 H Creatinine 0.75 - Imaging EKG: report reviewed (12/27/2017 SINUS RHYTHM POSSIBLE LEFT ATRIAL ENLARGEMENT [- 0.1mV P WAVE IN V1/V2] ST DEVIATION AND MODERATE T-WAVE ABNORMALITY, CONSIDER ANTEROLATERAL ISCHEMIA [- 0.1+ mV T WAVE IN V3-V6]) Additional studies: 02/05/2017 Echo Impressions: LVEF 55%. Normal LV chamber size and function. Mild concentric left ventricular hypertrophy. Mild left ventricular diastolic dysfunction. Normal right ventricular structure and function. No evidence of pulmonary hypertension. No significant valvular dysfunction. Anesthesia Exam O2 Sat Height 1.63 m Height 1.63 m Weight 48.081 kg Weight 48.081 kg O2 Sat by Pulse Oximetry 99 Vital Signs Temp Pulse Resp BP Pulse Ox 97.6 F 63 18 140/81 99 10/27/18 06:56 10/27/18 06:56 10/27/18 06:56 10/27/18 06:56 10/27/18 06:56 Height: 5'4'' Weight: 106 lbs NPO (# of Hours): 8 Pain Scale: 7 (hips and legs) Pain Scale Used: Numeric (1 - 10) - HEENT Pupil (Motor): EOMI Mallampati: II Teeth: Edentulous Denture Type: Upper: Complete, Lower: Complete Oral Opening: Greater than 3 - DAIRY SCIENTIST LOC: Oriented DAIRY SCIENTIST Motor: Normal RUE, Normal Face, Deficit LUE, Deficit RLE, Deficit LLE DAIRY SCIENTIST Sensory: Normal: RUE, LUE, RLE, LLE, Face (legally blind) - Cardiac Rhythm: Regular Murmur: None - Pulmonary Breath Sounds: bilateral Clear Respiratory Effort: Symmetrical Anesthesia Assess/Plan ASA Score: 3 Level of consciousness: Cooperative, Oriented, Tranquil Anesthetic Plan: General Monitoring Plan: Standard Monitors Recovery Plan: PACU
[2018-10-27] MEDS ORDERED: KETAMINE HCL 50 MG/ML SYRINGE ONE (07:34)
--- NOTE | 2018-10-27 07:39 | History & Physical Report ---
Date of Encounter: 10/27/18 Time of Encounter: 07:38 24 Hour HP Update - Instructions Instructions: If the History and Physical is less than 30 days old and was completed prior to A.M. admission and or procedure and has NOT been updated on calendar day of procedure please complete this update prior to performing procedure. - Update Patient reports changes in Medical Condition: No Changes in examination, assessment, or condition: No Changes in Medication: No Preop tests/diagnostics Reviewed: Yes Pre-Op MRSA Screen: Negative Surgery Remains Indicated: Yes Consent for Planned Operative Procedure(s) Verified: Yes - Pre-Operative Checklist Preoperative Checklist Indicated: No Prophylactic Antibiotic Ordered: Yes Home Medications Include Beta Stcaey: Yes Beta Stacey Taken Today (Day of Surgery): No Beta Stacey Taken Yesterday (Day Prior to Surgery): Yes Is VTE Prophylaxis Indicated?: Yes
[2018-10-27] MEDS: Ringers Solution, Lactated 1,000 ML IVC SCH ×3 (07:52→14:59)
[2018-10-27] MEDS ORDERED: *HR* OxyCODONE Immed Rel 5 MG TABLET PO PRN (08:02)
[2018-10-27] MEDS ORDERED: Ondansetron 4 MG/2 ML VIAL IVP ONE (08:02)
[2018-10-27] MEDS ORDERED: *HR* HYDROmorphone (PF) 1 MG/ML SYRINGE IVP PRN (08:02)
[2018-10-27] MEDS ORDERED: Acetaminophen IV 1,000 MG/100 ML INFUS..BTL ONE (08:10)
[2018-10-27] MEDS ORDERED: Bacitracin 50,000 UNIT, Polymyxin B Sulfate 500,000 UNIT, Sodium Chloride IRRigation 1,... IR ONE (08:15)
[2018-10-27] MEDS ORDERED: EPHEDrine 50 MG/ML VIAL ONE (08:26)
[2018-10-27] MEDS ORDERED: *HR* HYDROMORPHONE 2 MG/ML VIAL ONE (11:00)
--- NOTE | 2018-10-27 11:35 | Orthopedic Operative Note ---
Date of procedure: 10/27/18 Pre-op diagnosis: Retrolisthesis, lumbar stenosis, lumbar radiculopathy Post-op diagnosis: same Operation/Findings: Posterior lumbar interbody fusion L3-L5: The patient successfully underwent general endotracheal anesthesia. The patient was given antibiotics prior to the start of the procedure. Compression boots and stockings were used for deep vein thrombosis prophylaxis. A Lacey catheter was placed. Leads for neuro monitoring were placed on the upper and lower extremities. This included the cranium. The neuro monitoring personnel confirmed there were satisfactory readings prior to the start of the procedure. The patient was turned prone on the [place] table. The back was prepped and draped in the usual sterile fashion. An incision was was marked and centered over the involved L3-L5 levels in the mid line. The incision was deepened through the lumbar fascia. Bovie cautery and Levy elevators were used to reflect the paraspinal musculature at the lateral extent of the transverse processes of the involved L3-L5 levels. Aurora clamps were placed over the L4 and L5 spinous processes. An intraoperative lateral fluoroscopy graft was obtained. A conversation was held between the surgeon and radiologist and both confirmed we had the correct operative levels. We then placed pedicle screws in standard fashion with the aid of fluoroscopy and anatomic landmarks. Briefly a starter awl was used. A gearshift was subsequently used to enter the stove polisher hole via a transpedicular route into the vertebral body. The stove polisher hole was tapped with an undersized instrument, and subsequently six 6.5 x 40 mm pedicle screws were placed bilaterally at the indicated L3, L4, and L5 levels. The screws were tested with the aid of the neurologic monitoring staff via pedicle screw stimulation and a ball-tipped probe was used prior to insertion of the screws to ensure there was no significant cortical wall breech. The screws were also evaluated fluoro- graphically and appeared to be in satisfactory position. We then turned our attention to the decompression portion of the procedure. We removed the supraspinous and interspinous ligaments and subsequently the insertion of the ligamentum flavum on the undersurface of the proximal L4 lamina was dislodged with a curette. We then removed the ligamentum flavum as well as undercut the L4-L5 facets at this level to decompress the lateral recesses. We also performed a L4 laminectomy. We then moved proximally to the L3-4 level and again removed spinous process, hypertrophied ligamentum flavum, undercut the L3- 4 facets to decompress the lateral recesses, and performed a partial L3 laminectomy. After the decompression, which was over and above that which was required to place the interbody graft, the foramen and traversing roots at the L3-4 and L4-5 levels were found to be free and patent. We also took part of the L3-4 and L4-5 medial facets in order to aid in the decompression. We then protected the neural elements including the thecal sac and traversing nerve root on the right at L4-5 with a dural retractor. We made an annulotomy into the L4- L5 disc space and then removed entire disc material using Pituitary instruments. We trialed various size grafts after the endplates were prepared for graft insertion. A 10 x 26 enter body graft fit well within the L4-L5 disc space. We obtained some bone from the right posterior superior iliac spine through us a separate incision and combined with this with the bone which we had saved from the laminectomy portion of the procedure. This autograft bone was first placed in the anterior portion of the L4-L5 disc space and additional bone was placed within the interbody graft spacer. We then placed the interbody graft spacer obliquely across the L4-L5 disc space towards the midline while protecting the neural elements with a root retractor. When the graft was found to be in satisfactory position the lead consultant was removed. We then turned our attention to the L3-4 disc space. Again the neural elements were protected. We made an annulotomy into the L3-L4 disc space and removed entire disc material. We trialed a graft and a 10 x 26 mm graft fit well within the L3-4 disc space. After preparing the endplates and placing autograft bone in the anterior portion of the L3-4 disc space we placed and interbody graft spacer packed with bone obliquely across the L3-4 disc space. When found to be in appropriate position the lead consultant was removed. This left 2 interbody grafts 1 at L3-4 and 1 at L4-5. We then copiously irrigated the wound. We then decorticated the transverse processes as well as the facet joints of the involved L3-4 and L4-5 levels to aid in the posterolateral fusion. We placed autograft bone in the lateral gutters over these L3, L4, and L5 regions. We then placed rods within the screw heads of the involved L3-L5 levels and first locked the proximal screws and then subsequently locked the distal screws so as to improve and reduce the retrolisthesis previously seen. We then closed the wound in layers with 1 Vicryl for the fascia, 2-0 Vicryl. Subcutaneous tissue, and Dermabond was used for skin closure. Sterile dressings were placed over the wound. The patient was turned supine on a hospital bed and extubated. All sponge instruments and needle counts were correct at the end of the procedure. The patient tolerated the procedure well without complications. Anesthesia: GETA Surgeon: Conor Barros Jr Was there an cook's assistant present: No Estimated blood loss (cc): 100 Specimen: None Condition: stable Disposition: PACU
--- NOTE | 2018-10-27 12:33 | Anesthesia Evaluation Post Op ---
Date of Encounter: 10/27/18 Time of Encounter: 12:40 - Vital Signs Vital Signs: Vital Signs/O2 Sat/Glucose, Most Current Temp Pulse Resp BP Pulse Ox 10/27/18 12:24 68 16 100/59 95 10/27/18 12:14 98.6 F 69 14 86/53 95 10/27/18 12:04 73 16 89/51 94 10/27/18 11:54 79 20 89/48 95 10/27/18 11:44 98.2 F 78 20 92/66 100 - Lungs Lungs: Clear Ascult./Percussion - Airway Airway: Non-obstructed - Cardiovascular Regular Rate - Mental Status Mental Status: Alert & Oriented, Answers Appropriately - Pain Pain Scale: 1 - Nausea Vomiting Nausea Vomiting: Not Present - Hydration Hydration: Ice chips - Discharge PostOp Status: Transfer Patient to floor
[2018-10-27] MEDS ORDERED: (Adalimumab [Humira] 40 MG) SQ SCH (12:47)
[2018-10-27] MEDS ORDERED: Acetaminophen 325 MG TABLET PO PRN (12:47)
[2018-10-27] MEDS ORDERED: Naloxone 0.4 MG/ML INJ IVP PRN (12:47)
[2018-10-27] MEDS ORDERED: Sennosides/Docusate Sodium TABLET PO PRN (12:47)
[2018-10-27] MEDS ORDERED: traMADol 50 MG TABLET PO PRN (12:47)
[2018-10-27] MEDS: *HR* OxyCODONE Immed Rel 5 MG TABLET PO PRN ×2 (16:08→20:48)
[2018-10-27] MEDS: traZODone 50 MG TABLET PO SCH (20:33)
[2018-10-27] MEDS: risperiDONE 1 MG TABLET PO SCH (20:33)
[2018-10-27] MEDS: Budesonide/Formoterol 160/4.5 1 PUFF INH IH SCH (20:37)
[2018-10-28] MEDS: *HR* OxyCODONE Immed Rel 5 MG TABLET PO PRN ×4 (02:21→21:07)
[2018-10-28] MEDS: amLODIPine 5 MG TABLET PO SCH (08:37)
[2018-10-28] MEDS: Lisinopril 20 MG TABLET PO SCH (08:37)
--- NOTE | 2018-10-28 08:41 | Orthopedics Progress Note ---
Date of Encounter: 10/28/18 Time of Encounter: 08:20 - Assessment and Plan (1) Retrolisthesis Current Visit: Yes Status: Chronic (2) Lumbar stenosis Current Visit: Yes Status: Chronic Qualifiers: Neurogenic claudication status: unspecified Qualified Code(s): M48.061 - Spinal stenosis, lumbar region without neurogenic claudication (3) Lumbar radiculopathy Current Visit: Yes Status: Chronic (4) Status post lumbar spinal fusion Current Visit: Yes Status: Acute (5) Hypotension Current Visit: Yes Status: Acute Qualifiers: Hypotension type: unspecified hypotension type Qualified Code(s): I95.9 - Hypotension, unspecified Subjective Principal diagnosis: s/p PLIF Interval history: Date of procedure: 10/27/18 Pre-op diagnosis: Retrolisthesis, lumbar stenosis, lumbar radiculopathy Post-op diagnosis: same Operation/Findings: Posterior lumbar interbody fusion L3-L5 POD#1 Patient seen at bedside. She was noted to have profound hypotension while working with therapy and was ordered to bed rest. Patient is tearful - encouraged that we will encourage her to rest and check some labwork to evaluate for abnormality that might be contributing to hypotension. Alert and oriented - no acute distress. Laying supine in bed. Neurovascularly intact to b/l LE Vitals reviewed BMP/CBC ordered to eval hypotension Bed rest for the morning Patient has yet to pass gas - c/o history of constipation - will add Miralax which patient states she takes at home. Clear liquid diet until passing gas. Therapy on hold secondary to hypotension Encourage IS and PO fluids Patient's status reviewed with Dr. Barros Continue with postoperative care Objective Vital signs: Vital Signs Temp Pulse Resp BP Pulse Ox 10/28/18 06:14 97.8 F 67 18 104/64 99 10/28/18 03:54 98.2 F 69 17 96/59 97 10/27/18 23:05 97.9 F 57 17 103/65 97 10/27/18 20:40 15 98 10/27/18 18:55 97.5 F L 60 17 99/61 100 10/27/18 15:36 98.3 F 58 16 105/64 100 10/27/18 13:45 97.7 F 60 16 101/64 97 10/27/18 13:25 97.8 F 60 16 105/62 98 10/27/18 12:53 97.4 F L 68 16 97/66 100 10/27/18 12:34 98.3 F 67 16 93/57 95 10/27/18 12:24 68 16 100/59 95 10/27/18 12:14 98.6 F 69 14 86/53 95 10/27/18 12:04 73 16 89/51 94 10/27/18 11:54 79 20 89/48 95 10/27/18 11:44 98.2 F 78 20 92/66 100 Intake and Output 10/27/18 10/28/18 10/28/18 23:59 07:59 15:59 Intake Total 100 / 1220 Output Total 500 / 750 300 / 300 Balance -400 / 470 -300 / -300 Intake: IV Fluids 100 / 1220 Ancef 2,000 MG In 0.9 % Sodium 100 / 100 Chloride 100 ML @ 200 mls/hr IVPB Q8HR JELLY Rx#:[id number] Output: Catheter 500 / 500 300 / 300 Other: Weight 48.1 kg Patient Weight 10/28/18 23:59 Weight 48.1 kg - Labs CBC & BMP: 10/28/18 12:21 Consult Discharge Plan - Plan Additional Instructions: Per Dr. Barros, please make a followup appointment with PCP for low blood pressure. Referrals: NONE,PCP [Primary Care Provider] -
[2018-10-28] MEDS ORDERED: NON-FORMULARY MEDICATION 1 EACH EACH (Pantoprazole Sodium [Protonix] 40 MG) PO SCH (09:00)
[2018-10-28] MEDS: (Magnesium 250 MG) PO SCH (09:02)
[2018-10-28] MEDS: Ringers Solution, Lactated 1,000 ML IVC SCH ×2 (09:09→19:26)
[2018-10-28] MEDS: Multivit/Ca/Min/Fe/FA 1 TAB TABLET PO SCH (09:09)
[2018-10-28] MEDS: Budesonide/Formoterol 160/4.5 1 PUFF INH IH SCH ×2 (11:04→22:32)
[2018-10-28 12:57] LABS: BUN/Creatinine Ratio 11 (6-26); Blood Urea Nitrogen 7 mg/dL (8-23); Calcium 8.9 mg/dL (8.6-10.3); Carbon Dioxide 26 mEq/L (23-29); Chloride 104 mEq/L (98-107); Glucose 180 mg/dL (70-105); Osmolality,Calculated 281 (280-300); Potassium 4.1 mEq/L (3.5-5.1); Sodium 134 mEq/L (136-145); eGFR For Non-African Americans > 60 (> 60)
[2018-10-28 15:01] LABS: Basophils % 0.2 %; Eosinophils # 0.2 K/mcL (0.0-0.6); Eosinophils % 1.5 %; Hematocrit 33.2 % (35.3-44.9); Hemoglobin 11.2 g/dL (11.5-15.4); Immature Granulocytes % 0.5 % (0-4); Lymphocytes # 1.1 K/mcL (0.6-4.6); Lymphocytes % 7.8 %; Mean Corpuscular HGB Conc 33.7 g/dL (31.6-35.5); Mean Corpuscular Hemoglobin 32.4 pg (28.0-33.3); Mean Platelet Volume 11.8 fL (9.4-12.4); Monocytes # 1.8 K/mcL (0.0-1.3); Monocytes % 13.6 %; Neutrophils # 10.3 K/mcL (1.6-8.9); Platelet Count 128 K/mcL (140-400); Red Blood Count 3.46 M/mcL (3.82-4.97); Red Cell Distribution Width 12.8 % (11.5-14.5); Segmented Neutrophils % 76.4 %
[2018-10-28] MEDS: traZODone 50 MG TABLET PO SCH (21:00)
[2018-10-28] MEDS: risperiDONE 1 MG TABLET PO SCH (21:01)
[2018-10-29] MEDS: *HR* OxyCODONE Immed Rel 5 MG TABLET PO PRN ×3 (04:41→18:00)
[2018-10-29] MEDS: Ringers Solution, Lactated 1,000 ML IVC SCH ×2 (04:45→17:56)
[2018-10-29] MEDS: (Magnesium 250 MG) PO SCH (09:35)
[2018-10-29] MEDS: Multivit/Ca/Min/Fe/FA 1 TAB TABLET PO SCH (09:37)
[2018-10-29] MEDS: amLODIPine 5 MG TABLET PO SCH (09:38)
[2018-10-29] MEDS: Lisinopril 20 MG TABLET PO SCH (09:38)
[2018-10-29] MEDS: Budesonide/Formoterol 160/4.5 1 PUFF INH IH SCH ×2 (10:45→20:19)
--- NOTE | 2018-10-29 14:22 | Orthopedics Progress Note ---
Date of Encounter: 10/29/18 Time of Encounter: 08:35 - Assessment and Plan (1) Retrolisthesis Current Visit: Yes Status: Chronic (2) Lumbar stenosis Current Visit: Yes Status: Chronic Qualifiers: Neurogenic claudication status: unspecified Qualified Code(s): M48.061 - Spinal stenosis, lumbar region without neurogenic claudication (3) Lumbar radiculopathy Current Visit: Yes Status: Chronic (4) Status post lumbar spinal fusion Current Visit: Yes Status: Acute (5) Hypotension Current Visit: Yes Status: Acute Qualifiers: Hypotension type: unspecified hypotension type Qualified Code(s): I95.9 - Hypotension, unspecified Subjective Principal diagnosis: s/p PLIF Interval history: Date of procedure: 10/27/18 Pre-op diagnosis: Retrolisthesis, lumbar stenosis, lumbar radiculopathy Post-op diagnosis: same Operation/Findings: Posterior lumbar interbody fusion L3-L5 POD#2 Patient seen at bedside. She was noted to have profound hypotension POD#1 which has since resolved with medication regimen changes. Patient working with OT at present. Alert and oriented - no acute distress. Sitting in bedside chair Neurovascularly intact to b/l LE Vitals reviewed BMP/CBC ordered to eval hypotension - no gross abnormalities noted Miralax added for bowels on POD#1 which patient states she takes at home. Clear liquid diet until passing gas. Therapy on hold secondary to hypotension Encourage IS and PO fluids Continue to progress with therapy - inpt rehab recommended - consult to social work professor placed. Patient's status reviewed with Dr. Barros Continue with postoperative care Objective Vital signs: Vital Signs Temp Pulse Resp BP Pulse Ox 10/29/18 11:00 98.1 F 76 16 125/64 95 10/29/18 10:47 16 98 10/29/18 07:15 97.9 F 85 16 127/80 98 10/29/18 03:25 98.9 F 79 16 108/66 96 10/28/18 23:40 98.6 F 79 17 110/72 99 10/28/18 22:35 14 97 10/28/18 19:24 98.3 F 95 16 109/65 98 10/28/18 14:51 98.7 F 97 16 104/64 96 Intake and Output 10/28/18 10/29/18 10/29/18 23:59 07:59 15:59 Intake Total 999 / 2099 1000 / 1000 Balance 1000 / 1800 1000 / 1000 Intake: IV Fluids 999 / 1999 1000 / 1000 Lactated Ringers 1,000 ML @ 100 999 / 1999 1000 / 1000 mls/hr IVC .Q10H JELLY Rx#: [id number] Other: # Voids 1 1 Weight 48.2 kg Patient Weight 10/29/18 23:59 Weight 48.2 kg - Labs CBC & BMP: 10/28/18 14:41 10/28/18 12:21 Labs: Abnormal lab results WBC 13.5 K/mcL (4.3-11.1) H 10/28/18 14:41 RBC 3.46 M/mcL (3.82-4.97) L 10/28/18 14:41 Hgb 11.2 g/dL (11.5-15.4) L D 10/28/18 14:41 Hct 33.2 % (35.3-44.9) L 10/28/18 14:41 Plt Count 128 K/mcL (140-400) L 10/28/18 14:41 10.3 K/mcL (1.6-8.9) H 10/28/18 14:41 1.8 K/mcL (0.0-1.3) H 10/28/18 14:41 Sodium 134 mEq/L (136-145) L 10/28/18 12:21 BUN 7 mg/dL (8-23) L 10/28/18 12:21 Glucose 180 mg/dL (70-105) H 10/28/18 12:21 Consult Discharge Plan - Plan Additional Instructions: Per Dr. Barros, please make a followup appointment with PCP for low blood pressure. Referrals: NONE,PCP [Primary Care Provider] - Prescriptions: Docusate Sodium [Colace] 100 mg PO BID 5 Days #10 capsule OxyCODONE Immed Rel [Roxicodone 5 MG] 5 mg PO Q6HR PRN 5 Days #20 tablet PRN Reason: Severe Pain
[2018-10-29] MEDS: traZODone 50 MG TABLET PO SCH (22:20)
[2018-10-29] MEDS: risperiDONE 1 MG TABLET PO SCH (22:21)
[2018-10-30] MEDS: Budesonide/Formoterol 160/4.5 1 PUFF INH IH SCH (07:42)
[2018-10-30] MEDS: amLODIPine 5 MG TABLET PO SCH (07:58)
[2018-10-30] MEDS: Lisinopril 20 MG TABLET PO SCH (07:58)
[2018-10-30] MEDS: (Magnesium 250 MG) PO SCH (08:00)
[2018-10-30] MEDS: Multivit/Ca/Min/Fe/FA 1 TAB TABLET PO SCH (08:24)
[2018-10-30] MEDS: *HR* OxyCODONE Immed Rel 5 MG TABLET PO PRN ×2 (08:24→13:31)
[2018-10-30 11:21] VITALS: BP 110/68
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
[2018-11-01] MEDS ORDERED: NON-FORMULARY MEDICATION 1 EACH EACH (Alendronate Sodium [Fosamax] 70 MG) PO SCH (11:37)
[2018-11-01] MEDS ORDERED: Cholecalciferol (D-3) 1,000 UNIT TABLET PO SCH (11:37)
== END 2018-10-30 13:45 | disposition home health service (06) | DRG 460 ==
LOC: SAMDAY 06:12 → 3NENU 12:49
PROVIDERS: ADMIT Orthopaedic Surgery Orthopaedic Surgery of the Spine; ATTEND Orthopaedic Surgery Orthopaedic Surgery of the Spine

== ENCOUNTER 2021-06-20 09:54 | Inpatient (IN) ==
[2021-06-20 11:00] LABS: Basophils % 0.3 %; Eosinophils % 0.1 %; Hematocrit 46.5 % (35.3-44.9); Hemoglobin 16.3 g/dL (11.5-15.4); Immature Granulocytes % 0.8 % (0-4); Lymphocytes # 1.9 K/mcL (0.6-4.6); Lymphocytes % 21.7 %; Mean Corpuscular HGB Conc 35.1 g/dL (31.6-35.5); Mean Corpuscular Hemoglobin 32.4 pg (28.0-33.3); Mean Corpuscular Volume 92.4 fL (83.0-100.0); Mean Platelet Volume 11.2 fL (9.4-12.4); Monocytes % 11.9 %; Neutrophils # 5.6 K/mcL (1.6-8.9); Platelet Count 163 K/mcL (140-400); Red Blood Count 5.03 M/mcL (3.82-4.97); Red Cell Distribution Width 13.1 % (11.5-14.5); Segmented Neutrophils % 65.2 %; White Blood Count 8.6 K/mcL (4.3-11.1)
[2021-06-20 11:20] LABS: Influenza A PCR Negative (Negative); Influenza B PCR Negative (Negative); Resp. Syncytial Virus PCR Negative (Negative)
[2021-06-20] MEDS ORDERED: cefTRIAXone 1,000 MG in 0.9 % Sodium Chloride Mini Bag 100 ML IVPB STA (12:26)
[2021-06-20] MEDS ORDERED: Azithromycin 500 MG in D5% in Water 250 ML IVPB ONE (12:26)
[2021-06-20 12:27] LABS: SARS-CoV-2 by PCR (In House) Positive (Negative)
[2021-06-20 13:47] LABS: BUN/Creatinine Ratio 35 (6-26); Blood Urea Nitrogen 28 mg/dL (8-23); Carbon Dioxide 17 mEq/L (23-29); Chloride 99 mEq/L (98-107); Glucose 144 mg/dL (70-105); Osmolality,Calculated 278 (280-300); Potassium 3.2 mEq/L (3.5-5.1); Sodium 130 mEq/L (136-145); Troponin I 0.05 ng/mL (< 0.04); eGFR For African Americans > 60 (> 60); eGFR For Non-African Americans > 60 (> 60)
[2021-06-20] MEDS ORDERED: Sennosides/Docusate Sodium TABLET PO PRN (15:13)
[2021-06-20] MEDS ORDERED: Naloxone 0.4 MG/ML INJ IVP PRN (15:15)
[2021-06-20 18:08] LABS: Alanine Aminotransferase 196 Units/L (7-52); Albumin 3.6 g/dL (3.5-5.7); Albumin/Globulin Ratio 1.2 (1.1-2.2); Alkaline Phosphatase 102 Units/L (34-104); Aspartate Amino Transferase 148 Units/L (13-39); Bilirubin,Direct 0.1 mg/dL (0.0-0.2); Bilirubin,Indirect 0.5 mg/dL (0.0-1.0); Bilirubin,Total 0.6 mg/dL (0.3-1.0); C-Reactive Protein 24 mg/L (Less than 10); Globulin 3.1 g/dL (2.4-3.5); Total Protein 6.7 g/dL (6.4-8.9)
[2021-06-20] MEDS: Gabapentin 100 MG CAPSULE PO SCH (22:07)
[2021-06-20] MEDS: risperiDONE 1 MG TABLET PO SCH (22:07)
[2021-06-20] MEDS: traZODone 50 MG TABLET PO SCH (22:07)
[2021-06-21] MEDS: risperiDONE 1 MG TABLET PO SCH ×2 (00:28→20:25)
[2021-06-21] MEDS: traZODone 50 MG TABLET PO SCH ×2 (00:28→20:24)
[2021-06-21 03:35] LABS: Hematocrit 44.2 % (35.3-44.9); Hemoglobin 14.9 g/dL (11.5-15.4); Mean Corpuscular HGB Conc 33.7 g/dL (31.6-35.5); Mean Corpuscular Hemoglobin 31.5 pg (28.0-33.3); Mean Corpuscular Volume 93.4 fL (83.0-100.0); Platelet Count 170 K/mcL (140-400); Red Blood Count 4.73 M/mcL (3.82-4.97); Red Cell Distribution Width 12.8 % (11.5-14.5); Segmented Neutrophils % 80.9 %; White Blood Count 12.7 K/mcL (4.3-11.1)
[2021-06-21 03:36] LABS: Basophils % 0.3 %; Eosinophils % 0.2 %; Lymphocytes % 7.9 %; Monocytes # 1.2 K/mcL (0.0-1.3); Monocytes % 9.7 %; Neutrophils # 10.2 K/mcL (1.6-8.9)
[2021-06-21 03:54] LABS: BUN/Creatinine Ratio 40 (6-26); Blood Urea Nitrogen 27 mg/dL (8-23); Calcium 8.6 mg/dL (8.6-10.3); Carbon Dioxide 25 mEq/L (23-29); Chloride 99 mEq/L (98-107); Glucose 165 mg/dL (70-105); Osmolality,Calculated 281 (280-300); Potassium 2.9 mEq/L (3.5-5.1); Sodium 131 mEq/L (136-145); eGFR For African Americans > 60 (> 60); eGFR For Non-African Americans > 60 (> 60)
[2021-06-21] MEDS: *HR* Enoxaparin 40 MG/0.4 ML SYRINGE SQ SCH (06:14)
[2021-06-21] MEDS: hydroCHLOROthiazide 25 MG TABLET PO SCH (08:08)
[2021-06-21] MEDS: Gabapentin 100 MG CAPSULE PO SCH ×2 (08:08→20:25)
[2021-06-21] MEDS: Pantoprazole 40 MG VIAL IVP SCH (08:16)
[2021-06-21] MEDS ORDERED: cefTRIAXone 2,000 MG in 0.9 % Sodium Chloride Mini Bag 100 ML IVPB SCH (09:00)
[2021-06-21] MEDS: Azithromycin 500 MG in 0.9 % Sodium Chloride 250 ML IVPB SCH (09:38)
[2021-06-21] MEDS ORDERED: Ipratropium 1 PUFF INHALER IH PRN (12:42)
[2021-06-21] MEDS: Budesonide/Formoterol 160/4.5 1 PUFF INH IH SCH ×2 (16:02→19:49)
[2021-06-22 02:17] LABS: Basophils % 0.2 %; Hemoglobin 14.4 g/dL (11.5-15.4); Immature Granulocytes % 0.6 % (0-4); Lymphocytes # 1.9 K/mcL (0.6-4.6); Lymphocytes % 13.2 %; Mean Corpuscular HGB Conc 35.1 g/dL (31.6-35.5); Mean Corpuscular Hemoglobin 32.8 pg (28.0-33.3); Mean Corpuscular Volume 93.4 fL (83.0-100.0); Mean Platelet Volume 11.6 fL (9.4-12.4); Monocytes # 1.2 K/mcL (0.0-1.3); Monocytes % 8.6 %; Platelet Count 203 K/mcL (140-400); Red Blood Count 4.39 M/mcL (3.82-4.97); Red Cell Distribution Width 13.2 % (11.5-14.5); Segmented Neutrophils % 77.4 %; White Blood Count 14.2 K/mcL (4.3-11.1)
[2021-06-22 02:39] LABS: BUN/Creatinine Ratio 42 (6-26); Blood Urea Nitrogen 27 mg/dL (8-23); Calcium 8.6 mg/dL (8.6-10.3); Carbon Dioxide 26 mEq/L (23-29); Chloride 103 mEq/L (98-107); Glucose 127 mg/dL (70-105); Osmolality,Calculated 289 (280-300); Sodium 136 mEq/L (136-145); eGFR For African Americans > 60 (> 60); eGFR For Non-African Americans > 60 (> 60)
[2021-06-22] MEDS: *HR* Enoxaparin 40 MG/0.4 ML SYRINGE SQ SCH (05:21)
[2021-06-22] MEDS: Budesonide/Formoterol 160/4.5 1 PUFF INH IH SCH ×2 (07:59→19:19)
[2021-06-22] MEDS: hydroCHLOROthiazide 25 MG TABLET PO SCH (08:21)
[2021-06-22] MEDS: Gabapentin 100 MG CAPSULE PO SCH ×2 (08:21→21:17)
[2021-06-22] MEDS: Azithromycin 500 MG in 0.9 % Sodium Chloride 250 ML IVPB SCH (08:22)
[2021-06-22] MEDS: Pantoprazole 40 MG VIAL IVP SCH (08:22)
[2021-06-22] MEDS: traZODone 50 MG TABLET PO SCH (21:16)
[2021-06-22] MEDS: risperiDONE 1 MG TABLET PO SCH (21:16)
[2021-06-23 02:42] LABS: Basophils % 0.3 %; Eosinophils % 0.2 %; Hematocrit 40.3 % (35.3-44.9); Hemoglobin 13.9 g/dL (11.5-15.4); Immature Granulocytes % 0.7 % (0-4); Lymphocytes # 1.7 K/mcL (0.6-4.6); Lymphocytes % 12.9 %; Mean Corpuscular HGB Conc 34.5 g/dL (31.6-35.5); Mean Corpuscular Hemoglobin 32.3 pg (28.0-33.3); Mean Corpuscular Volume 93.7 fL (83.0-100.0); Monocytes # 1.1 K/mcL (0.0-1.3); Neutrophils # 10.2 K/mcL (1.6-8.9); Platelet Count 211 K/mcL (140-400); Red Cell Distribution Width 13.2 % (11.5-14.5); Segmented Neutrophils % 77.9 %; White Blood Count 13.1 K/mcL (4.3-11.1)
[2021-06-23 03:05] LABS: BUN/Creatinine Ratio 52 (6-26); Blood Urea Nitrogen 28 mg/dL (8-23); Calcium 8.7 mg/dL (8.6-10.3); Carbon Dioxide 25 mEq/L (23-29); Chloride 100 mEq/L (98-107); Glucose 144 mg/dL (70-105); Osmolality,Calculated 286 (280-300); Potassium 3.6 mEq/L (3.5-5.1); Sodium 134 mEq/L (136-145); eGFR For African Americans > 60 (> 60); eGFR For Non-African Americans > 60 (> 60)
[2021-06-23] MEDS: *HR* Enoxaparin 40 MG/0.4 ML SYRINGE SQ SCH (05:30)
[2021-06-23] MEDS: Pantoprazole 40 MG VIAL IVP SCH (10:08)
[2021-06-23] MEDS: Gabapentin 100 MG CAPSULE PO SCH ×2 (10:08→20:12)
[2021-06-23] MEDS: Azithromycin 500 MG in 0.9 % Sodium Chloride 250 ML IVPB SCH (10:09)
[2021-06-23] MEDS: Budesonide/Formoterol 160/4.5 1 PUFF INH IH SCH ×2 (11:49→19:36)
[2021-06-23] MEDS: hydroCHLOROthiazide 25 MG TABLET PO SCH (12:09)
[2021-06-23] MEDS: traZODone 50 MG TABLET PO SCH (20:11)
[2021-06-23] MEDS: risperiDONE 1 MG TABLET PO SCH (20:13)
[2021-06-24] MEDS: *HR* Enoxaparin 40 MG/0.4 ML SYRINGE SQ SCH (05:48)
[2021-06-24 06:08] LABS: Basophils # 0.1 K/mcL (0.0-0.2); Basophils % 0.6 %; Eosinophils % 0.2 %; Hematocrit 43.5 % (35.3-44.9); Hemoglobin 14.3 g/dL (11.5-15.4); Immature Granulocytes % 0.7 % (0-4); Lymphocytes # 1.5 K/mcL (0.6-4.6); Lymphocytes % 13.1 %; Mean Corpuscular HGB Conc 32.9 g/dL (31.6-35.5); Mean Corpuscular Hemoglobin 31.7 pg (28.0-33.3); Mean Corpuscular Volume 96.5 fL (83.0-100.0); Mean Platelet Volume 10.7 fL (9.4-12.4); Monocytes # 1.3 K/mcL (0.0-1.3); Monocytes % 11.4 %; Neutrophils # 8.3 K/mcL (1.6-8.9); Platelet Count 232 K/mcL (140-400); Red Blood Count 4.51 M/mcL (3.82-4.97); Red Cell Distribution Width 13.4 % (11.5-14.5); White Blood Count 11.2 K/mcL (4.3-11.1)
[2021-06-24 06:33] LABS: Platelet Estimate Normal (Normal)
[2021-06-24 06:34] LABS: BUN/Creatinine Ratio 41 (6-26); Blood Urea Nitrogen 26 mg/dL (8-23); Carbon Dioxide 26 mEq/L (23-29); Chloride 99 mEq/L (98-107); Glucose 193 mg/dL (70-105); Osmolality,Calculated 290 (280-300); Potassium 3.4 mEq/L (3.5-5.1); Sodium 135 mEq/L (136-145); eGFR For African Americans > 60 (> 60); eGFR For Non-African Americans > 60 (> 60)
[2021-06-24] MEDS: Budesonide/Formoterol 160/4.5 1 PUFF INH IH SCH ×2 (08:08→23:01)
[2021-06-24] MEDS: Pantoprazole 40 MG VIAL IVP SCH (09:33)
[2021-06-24] MEDS: Gabapentin 100 MG CAPSULE PO SCH ×2 (09:34→20:19)
[2021-06-24] MEDS: Azithromycin 500 MG in 0.9 % Sodium Chloride 250 ML IVPB SCH (09:35)
[2021-06-24] MEDS: hydroCHLOROthiazide 25 MG TABLET PO SCH (09:36)
[2021-06-24] MEDS ORDERED: NON-FORMULARY MEDICATION 1 EACH EACH (Alendronate Sodium [Fosamax] 70 MG Tablet) PO SCH (15:13)
[2021-06-24] MEDS: traZODone 50 MG TABLET PO SCH (20:20)
[2021-06-24] MEDS: risperiDONE 1 MG TABLET PO SCH (20:22)
[2021-06-25] MEDS: *HR* Enoxaparin 40 MG/0.4 ML SYRINGE SQ SCH (04:55)
[2021-06-25] MEDS: Budesonide/Formoterol 160/4.5 1 PUFF INH IH SCH ×2 (08:08→19:28)
[2021-06-25] MEDS: Azithromycin 500 MG in 0.9 % Sodium Chloride 250 ML IVPB SCH (09:42)
[2021-06-25] MEDS: Pantoprazole 40 MG VIAL IVP SCH (09:43)
[2021-06-25] MEDS: hydroCHLOROthiazide 25 MG TABLET PO SCH (09:44)
[2021-06-25] MEDS: Gabapentin 100 MG CAPSULE PO SCH ×2 (09:44→20:07)
[2021-06-25] MEDS: Nicotine 14 MG PATCH.TD24 TD SCH (09:44)
[2021-06-25 10:13] LABS: Basophils % 0.4 %; Eosinophils # 0.1 K/mcL (0.0-0.6); Eosinophils % 0.5 %; Hematocrit 40.7 % (35.3-44.9); Hemoglobin 13.9 g/dL (11.5-15.4); Lymphocytes # 1.8 K/mcL (0.6-4.6); Mean Corpuscular HGB Conc 34.2 g/dL (31.6-35.5); Mean Corpuscular Volume 93.6 fL (83.0-100.0); Mean Platelet Volume 11.5 fL (9.4-12.4); Monocytes # 1.3 K/mcL (0.0-1.3); Monocytes % 12.7 %; Neutrophils # 6.7 K/mcL (1.6-8.9); Platelet Count 223 K/mcL (140-400); Red Blood Count 4.35 M/mcL (3.82-4.97); Segmented Neutrophils % 67.4 %
[2021-06-25 10:29] LABS: BUN/Creatinine Ratio 48 (6-26); Blood Urea Nitrogen 27 mg/dL (8-23); Calcium 8.9 mg/dL (8.6-10.3); Carbon Dioxide 27 mEq/L (23-29); Chloride 99 mEq/L (98-107); Glucose 221 mg/dL (70-105); Osmolality,Calculated 294 (280-300); Potassium 3.2 mEq/L (3.5-5.1); Sodium 136 mEq/L (136-145); eGFR For African Americans > 60 (> 60); eGFR For Non-African Americans > 60 (> 60)
[2021-06-25] MEDS: traZODone 50 MG TABLET PO SCH (20:08)
[2021-06-25] MEDS: risperiDONE 1 MG TABLET PO SCH (20:08)
[2021-06-26 02:50] LABS: Basophils % 0.2 %; Eosinophils % 0.3 %; Hematocrit 40.9 % (35.3-44.9); Hemoglobin 14.3 g/dL (11.5-15.4); Immature Granulocytes % 0.6 % (0-4); Lymphocytes # 1.9 K/mcL (0.6-4.6); Lymphocytes % 15.4 %; Mean Corpuscular Hemoglobin 32.5 pg (28.0-33.3); Mean Platelet Volume 11.3 fL (9.4-12.4); Monocytes # 1.6 K/mcL (0.0-1.3); Monocytes % 12.6 %; Neutrophils # 8.8 K/mcL (1.6-8.9); Platelet Count 244 K/mcL (140-400); Red Cell Distribution Width 12.9 % (11.5-14.5); Segmented Neutrophils % 70.9 %; White Blood Count 12.4 K/mcL (4.3-11.1)
[2021-06-26 03:08] LABS: BUN/Creatinine Ratio 43 (6-26); Blood Urea Nitrogen 22 mg/dL (8-23); Carbon Dioxide 27 mEq/L (23-29); Chloride 102 mEq/L (98-107); Glucose 169 mg/dL (70-105); Osmolality,Calculated 285 (280-300); Potassium 3.6 mEq/L (3.5-5.1); Sodium 134 mEq/L (136-145); eGFR For African Americans > 60 (> 60); eGFR For Non-African Americans > 60 (> 60)
[2021-06-26] MEDS: *HR* Enoxaparin 30 MG/0.3 ML SYRINGE SQ SCH (05:20)
[2021-06-26] MEDS: Budesonide/Formoterol 160/4.5 1 PUFF INH IH SCH ×2 (08:16→20:37)
[2021-06-26] MEDS: Gabapentin 100 MG CAPSULE PO SCH ×2 (08:35→20:16)
[2021-06-26] MEDS: hydroCHLOROthiazide 25 MG TABLET PO SCH (08:36)
[2021-06-26] MEDS: Nicotine 14 MG PATCH.TD24 TD SCH (08:37)
[2021-06-26] MEDS: Pantoprazole 40 MG VIAL IVP SCH (08:56)
[2021-06-26] MEDS: Azithromycin 500 MG in 0.9 % Sodium Chloride 250 ML IVPB SCH (08:56)
[2021-06-26] MEDS: risperiDONE 1 MG TABLET PO SCH (20:16)
[2021-06-26] MEDS: traZODone 50 MG TABLET PO SCH (20:17)
[2021-06-27] MEDS ORDERED: Ketorolac 30 MG/ML VIAL IVP ONE (00:10)
[2021-06-27] MEDS: *HR* Enoxaparin 30 MG/0.3 ML SYRINGE SQ SCH (05:12)
[2021-06-27] MEDS: Acetaminophen 325 MG TABLET PO PRN (05:12)
[2021-06-27 05:38] LABS: Basophils % 0.2 %; Eosinophils % 0.2 %; Hematocrit 39.6 % (35.3-44.9); Hemoglobin 13.8 g/dL (11.5-15.4); Immature Granulocytes % 0.6 % (0-4); Lymphocytes # 1.8 K/mcL (0.6-4.6); Lymphocytes % 13.9 %; Mean Corpuscular HGB Conc 34.8 g/dL (31.6-35.5); Mean Corpuscular Hemoglobin 32.5 pg (28.0-33.3); Mean Corpuscular Volume 93.4 fL (83.0-100.0); Monocytes # 1.5 K/mcL (0.0-1.3); Monocytes % 11.1 %; Neutrophils # 9.8 K/mcL (1.6-8.9); Platelet Count 214 K/mcL (140-400); Red Blood Count 4.24 M/mcL (3.82-4.97); Red Cell Distribution Width 12.8 % (11.5-14.5); White Blood Count 13.3 K/mcL (4.3-11.1)
[2021-06-27 05:59] LABS: BUN/Creatinine Ratio 38 (6-26); Blood Urea Nitrogen 21 mg/dL (8-23); Carbon Dioxide 29 mEq/L (23-29); Chloride 99 mEq/L (98-107); Glucose 202 mg/dL (70-105); Osmolality,Calculated 287 (280-300); Potassium 3.9 mEq/L (3.5-5.1); Sodium 134 mEq/L (136-145); eGFR For African Americans > 60 (> 60); eGFR For Non-African Americans > 60 (> 60)
[2021-06-27] MEDS: Budesonide/Formoterol 160/4.5 1 PUFF INH IH SCH ×2 (07:52→21:27)
[2021-06-27] MEDS: Azithromycin 250 MG TABLET PO SCH (08:08)
[2021-06-27] MEDS: Gabapentin 100 MG CAPSULE PO SCH ×2 (08:08→20:16)
[2021-06-27] MEDS: Nicotine 14 MG PATCH.TD24 TD SCH (08:08)
[2021-06-27] MEDS: hydroCHLOROthiazide 25 MG TABLET PO SCH (08:08)
[2021-06-27] MEDS: traZODone 50 MG TABLET PO SCH (20:16)
[2021-06-27] MEDS: risperiDONE 1 MG TABLET PO SCH (20:17)
[2021-06-28] MEDS: Acetaminophen 325 MG TABLET PO PRN (02:29)
[2021-06-28] MEDS: *HR* Enoxaparin 30 MG/0.3 ML SYRINGE SQ SCH (05:32)
[2021-06-28] MEDS: Budesonide/Formoterol 160/4.5 1 PUFF INH IH SCH ×2 (07:53→21:01)
[2021-06-28 08:01] LABS: Basophils % 0.3 %; Eosinophils % 0.1 %; Immature Granulocytes % 0.7 % (0-4); Lymphocytes # 1.9 K/mcL (0.6-4.6); Lymphocytes % 13.5 %; Mean Corpuscular HGB Conc 34.1 g/dL (31.6-35.5); Mean Corpuscular Hemoglobin 32.1 pg (28.0-33.3); Mean Platelet Volume 11.8 fL (9.4-12.4); Monocytes # 1.5 K/mcL (0.0-1.3); Monocytes % 10.8 %; Neutrophils # 10.5 K/mcL (1.6-8.9); Platelet Count 207 K/mcL (140-400); Red Blood Count 4.36 M/mcL (3.82-4.97); Red Cell Distribution Width 12.6 % (11.5-14.5); Segmented Neutrophils % 74.6 %; White Blood Count 14.1 K/mcL (4.3-11.1)
[2021-06-28 08:15] LABS: BUN/Creatinine Ratio 38 (6-26); Blood Urea Nitrogen 18 mg/dL (8-23); Carbon Dioxide 26 mEq/L (23-29); Chloride 95 mEq/L (98-107); Glucose 195 mg/dL (70-105); Osmolality,Calculated 279 (280-300); Potassium 3.6 mEq/L (3.5-5.1); Sodium 131 mEq/L (136-145); eGFR For African Americans > 60 (> 60); eGFR For Non-African Americans > 60 (> 60)
[2021-06-28] MEDS: hydroCHLOROthiazide 25 MG TABLET PO SCH (10:16)
[2021-06-28] MEDS: Azithromycin 250 MG TABLET PO SCH (10:16)
[2021-06-28] MEDS: Gabapentin 100 MG CAPSULE PO SCH ×2 (10:16→20:06)
[2021-06-28] MEDS: Nicotine 14 MG PATCH.TD24 TD SCH (10:17)
[2021-06-28] MEDS: traZODone 50 MG TABLET PO SCH (20:05)
[2021-06-28] MEDS: risperiDONE 1 MG TABLET PO SCH (20:06)
[2021-06-29] MEDS: *HR* Enoxaparin 30 MG/0.3 ML SYRINGE SQ SCH (05:35)
[2021-06-29] MEDS: Budesonide/Formoterol 160/4.5 1 PUFF INH IH SCH ×2 (08:15→20:25)
[2021-06-29] MEDS: hydroCHLOROthiazide 25 MG TABLET PO SCH (09:48)
[2021-06-29] MEDS: Nicotine 14 MG PATCH.TD24 TD SCH (09:49)
[2021-06-29] MEDS: Gabapentin 100 MG CAPSULE PO SCH ×2 (09:49→21:15)
[2021-06-29] MEDS: *HR* Metformin 500 MG TABLET PO SCH (21:11)
[2021-06-29] MEDS: traZODone 50 MG TABLET PO SCH (21:15)
[2021-06-29] MEDS: risperiDONE 1 MG TABLET PO SCH (21:16)
[2021-06-30] MEDS: *HR* Enoxaparin 30 MG/0.3 ML SYRINGE SQ SCH (06:31)
[2021-06-30] MEDS: Budesonide/Formoterol 160/4.5 1 PUFF INH IH SCH ×2 (07:36→20:11)
[2021-06-30] MEDS: *HR* Metformin 500 MG TABLET PO SCH (08:29)
[2021-06-30] MEDS: hydroCHLOROthiazide 25 MG TABLET PO SCH (08:29)
[2021-06-30] MEDS: Gabapentin 100 MG CAPSULE PO SCH ×2 (08:29→20:14)
[2021-06-30] MEDS: Nicotine 14 MG PATCH.TD24 TD SCH (08:31)
[2021-06-30] MEDS ORDERED: lisinopriL 20 MG TABLET PO SCH (09:00)
[2021-06-30 11:10] LABS: Hematocrit 40.9 % (35.3-44.9); Hemoglobin 14.4 g/dL (11.5-15.4); Mean Corpuscular HGB Conc 35.2 g/dL (31.6-35.5); Mean Corpuscular Hemoglobin 32.1 pg (28.0-33.3); Mean Corpuscular Volume 91.1 fL (83.0-100.0); Mean Platelet Volume 11.4 fL (9.4-12.4); Platelet Count 199 K/mcL (140-400); Red Blood Count 4.49 M/mcL (3.82-4.97); Red Cell Distribution Width 12.5 % (11.5-14.5); White Blood Count 20.2 K/mcL (4.3-11.1)
[2021-06-30 11:31] LABS: BUN/Creatinine Ratio 33 (6-26); Blood Urea Nitrogen 24 mg/dL (8-23); Calcium 9.3 mg/dL (8.6-10.3); Carbon Dioxide 25 mEq/L (23-29); Chloride 91 mEq/L (98-107); Glucose 234 mg/dL (70-105); Osmolality,Calculated 280 (280-300); Potassium 3.5 mEq/L (3.5-5.1); Sodium 129 mEq/L (136-145); eGFR For African Americans > 60 (> 60); eGFR For Non-African Americans > 60 (> 60)
[2021-06-30] MEDS ORDERED: Albuterol 2.5 MG/3 ML NEBULIZER IH PRN (13:19)
[2021-06-30] MEDS ORDERED: *HR* FentaNYL (PF) 100 MCG/2 ML VIAL IVP PRN (13:19)
[2021-06-30] MEDS ORDERED: Lidocaine -MPF 2% 5 ML VIAL ONE (13:38)
[2021-06-30] MEDS ORDERED: Ondansetron 4 MG/2 ML VIAL ONE (13:38)
[2021-06-30] MEDS ORDERED: Lidocaine HCL 4 ML Topical Solution (Laryng-O-Jet Kit Sterile Pak) TP ONE (13:38)
[2021-06-30] MEDS ORDERED: *HR* Succinylcholine 200 MG/10 ML VIAL IVP ONE (13:40)
[2021-06-30] MEDS ORDERED: *HR* Rocuronium Bromide 50 MG/5 ML VIAL ONE (14:06)
[2021-06-30 18:16] LABS: Appearance of Body Fluid Cloudy (Clear); Volume of Body Fluid 16 mL
[2021-06-30] MEDS: traZODone 50 MG TABLET PO SCH (20:12)
[2021-06-30] MEDS: risperiDONE 1 MG TABLET PO SCH (20:12)
[2021-07-01] MEDS: Piperacillin/Tazobactam 3.375 GM in 0.9 % Sodium Chloride Mini Bag 100 ML IVPB SCH ×4 (00:23→23:45)
[2021-07-01] MEDS: *HR* Enoxaparin 30 MG/0.3 ML SYRINGE SQ SCH (05:34)
[2021-07-01] MEDS: hydroCHLOROthiazide 25 MG TABLET PO SCH (07:33)
[2021-07-01] MEDS: Budesonide/Formoterol 160/4.5 1 PUFF INH IH SCH ×2 (07:36→20:01)
[2021-07-01] MEDS: Nicotine 14 MG PATCH.TD24 TD SCH (08:06)
[2021-07-01] MEDS: Gabapentin 100 MG CAPSULE PO SCH ×2 (08:06→19:37)
[2021-07-01] MEDS: traZODone 50 MG TABLET PO SCH (19:37)
[2021-07-01] MEDS: risperiDONE 1 MG TABLET PO SCH (19:37)
[2021-07-02] MEDS: *HR* Enoxaparin 30 MG/0.3 ML SYRINGE SQ SCH (05:09)
[2021-07-02] MEDS: Budesonide/Formoterol 160/4.5 1 PUFF INH IH SCH ×2 (07:56→20:10)
[2021-07-02] MEDS: Gabapentin 100 MG CAPSULE PO SCH ×2 (09:24→19:33)
[2021-07-02] MEDS: Nicotine 14 MG PATCH.TD24 TD SCH (09:24)
[2021-07-02] MEDS: Piperacillin/Tazobactam 3.375 GM in 0.9 % Sodium Chloride Mini Bag 100 ML IVPB SCH ×3 (09:25→23:41)
[2021-07-02 10:41] LABS: Hematocrit 37.7 % (35.3-44.9); Mean Corpuscular HGB Conc 33.7 g/dL (31.6-35.5); Mean Corpuscular Hemoglobin 31.5 pg (28.0-33.3); Mean Corpuscular Volume 93.5 fL (83.0-100.0); Mean Platelet Volume 11.9 fL (9.4-12.4); Platelet Count 176 K/mcL (140-400); Red Blood Count 4.03 M/mcL (3.82-4.97); Red Cell Distribution Width 12.6 % (11.5-14.5); White Blood Count 15.5 K/mcL (4.3-11.1)
[2021-07-02 10:44] LABS: Hemoglobin 12.7 g/dL (11.5-15.4)
[2021-07-02 10:45] LABS: BUN/Creatinine Ratio 46 (6-26); Blood Urea Nitrogen 27 mg/dL (8-23); Calcium 8.9 mg/dL (8.6-10.3); Carbon Dioxide 28 mEq/L (23-29); Chloride 96 mEq/L (98-107); Glucose 209 mg/dL (70-105); Osmolality,Calculated 285 (280-300); Potassium 3.2 mEq/L (3.5-5.1); Sodium 132 mEq/L (136-145); eGFR For African Americans > 60 (> 60); eGFR For Non-African Americans > 60 (> 60)
[2021-07-02] MEDS ORDERED: Vancomycin 500 MG in 0.9 % Sodium Chloride Mini Bag 100 ML IVPB SCH ×2 (11:00→17:30)
[2021-07-02] MEDS: risperiDONE 1 MG TABLET PO SCH (19:31)
[2021-07-02] MEDS: traZODone 50 MG TABLET PO SCH (19:31)
[2021-07-03] MEDS: *HR* Enoxaparin 30 MG/0.3 ML SYRINGE SQ SCH (04:48)
[2021-07-03] MEDS: Saline Nasal Spray 44 ML BOTTLE NS SCH ×7 (08:02→23:59)
[2021-07-03] MEDS: Piperacillin/Tazobactam 3.375 GM in 0.9 % Sodium Chloride Mini Bag 100 ML IVPB SCH (08:05)
[2021-07-03] MEDS: Budesonide/Formoterol 160/4.5 1 PUFF INH IH SCH ×2 (08:08→20:54)
[2021-07-03] MEDS: Gabapentin 100 MG CAPSULE PO SCH ×2 (08:09→19:49)
[2021-07-03] MEDS: Nicotine 14 MG PATCH.TD24 TD SCH (08:11)
[2021-07-03 11:31] LABS: Basophils % 0.2 %; Eosinophils # 0.1 K/mcL (0.0-0.6); Eosinophils % 0.4 %; Hematocrit 38.2 % (35.3-44.9); Hemoglobin 12.6 g/dL (11.5-15.4); Immature Granulocytes % 0.4 % (0-4); Lymphocytes # 0.6 K/mcL (0.6-4.6); Lymphocytes % 4.7 %; Mean Corpuscular Hemoglobin 31.7 pg (28.0-33.3); Mean Corpuscular Volume 96.2 fL (83.0-100.0); Mean Platelet Volume 11.6 fL (9.4-12.4); Monocytes # 0.7 K/mcL (0.0-1.3); Monocytes % 5.5 %; Neutrophils # 11.8 K/mcL (1.6-8.9); Platelet Count 169 K/mcL (140-400); Red Blood Count 3.97 M/mcL (3.82-4.97); Red Cell Distribution Width 12.5 % (11.5-14.5); Segmented Neutrophils % 88.8 %; White Blood Count 13.4 K/mcL (4.3-11.1)
[2021-07-03 11:42] LABS: BUN/Creatinine Ratio 37 (6-26); Blood Urea Nitrogen 20 mg/dL (8-23); Calcium 8.3 mg/dL (8.6-10.3); Carbon Dioxide 24 mEq/L (23-29); Chloride 98 mEq/L (98-107); Glucose 319 mg/dL (70-105); Osmolality,Calculated 285 (280-300); Sodium 130 mEq/L (136-145); eGFR For African Americans > 60 (> 60); eGFR For Non-African Americans > 60 (> 60)
[2021-07-03] MEDS ORDERED: Vancomycin 500 MG in 0.9 % Sodium Chloride Mini Bag 100 ML IVPB SCH (12:00)
[2021-07-03] MEDS: risperiDONE 1 MG TABLET PO SCH (19:48)
[2021-07-03] MEDS: traZODone 50 MG TABLET PO SCH (19:49)
[2021-07-04] MEDS: Saline Nasal Spray 44 ML BOTTLE NS SCH ×6 (04:08→23:54)
[2021-07-04] MEDS: *HR* Enoxaparin 30 MG/0.3 ML SYRINGE SQ SCH (05:33)
[2021-07-04] MEDS: Budesonide/Formoterol 160/4.5 1 PUFF INH IH SCH ×2 (08:25→20:21)
[2021-07-04] MEDS: Gabapentin 100 MG CAPSULE PO SCH ×2 (09:13→21:34)
[2021-07-04] MEDS: Nicotine 14 MG PATCH.TD24 TD SCH (09:15)
[2021-07-04] MEDS ORDERED: *HR* Dextrose 50 % in Water (Syg) 50 ML SYRINGE IVP PRN (14:47)
[2021-07-04] MEDS ORDERED: Dextrose Gel 15 GM/37.5 ML TUBE PO PRN ×2 (14:47)
[2021-07-04] MEDS ORDERED: D5% in Water 1,000 ML IVC PRN (14:47)
[2021-07-04] MEDS: lisinopriL 20 MG TABLET PO SCH (17:10)
[2021-07-04] MEDS: Insulin LISPRO 300 UNITS/3 ML VIAL SUBQ SCH ×2 (17:44→21:38)
[2021-07-04] MEDS: traZODone 50 MG TABLET PO SCH (21:33)
[2021-07-04] MEDS: risperiDONE 1 MG TABLET PO SCH (21:34)
[2021-07-05 01:29] LABS: Basophils # 0.1 K/mcL (0.0-0.2); Basophils % 0.4 %; Eosinophils # 0.2 K/mcL (0.0-0.6); Eosinophils % 1.7 %; Hematocrit 36.9 % (35.3-44.9); Hemoglobin 12.9 g/dL (11.5-15.4); Immature Granulocytes % 0.6 % (0-4); Lymphocytes % 14.2 %; Mean Corpuscular Hemoglobin 32.7 pg (28.0-33.3); Mean Corpuscular Volume 93.7 fL (83.0-100.0); Mean Platelet Volume 11.1 fL (9.4-12.4); Monocytes # 1.6 K/mcL (0.0-1.3); Monocytes % 11.3 %; Neutrophils # 10.2 K/mcL (1.6-8.9); Platelet Count 189 K/mcL (140-400); Red Blood Count 3.94 M/mcL (3.82-4.97); Red Cell Distribution Width 12.1 % (11.5-14.5); Segmented Neutrophils % 71.8 %; White Blood Count 14.2 K/mcL (4.3-11.1)
[2021-07-05 01:47] LABS: BUN/Creatinine Ratio 29 (6-26); Blood Urea Nitrogen 14 mg/dL (8-23); Carbon Dioxide 28 mEq/L (23-29); Chloride 99 mEq/L (98-107); Glucose 101 mg/dL (70-105); Osmolality,Calculated 277 (280-300); Potassium 3.5 mEq/L (3.5-5.1); Sodium 133 mEq/L (136-145); eGFR For African Americans > 60 (> 60); eGFR For Non-African Americans > 60 (> 60)
[2021-07-05] MEDS: Saline Nasal Spray 44 ML BOTTLE NS SCH ×5 (04:02→19:31)
[2021-07-05] MEDS: *HR* Enoxaparin 30 MG/0.3 ML SYRINGE SQ SCH (06:37)
[2021-07-05] MEDS: Budesonide/Formoterol 160/4.5 1 PUFF INH IH SCH ×2 (08:16→19:35)
[2021-07-05] MEDS: lisinopriL 20 MG TABLET PO SCH (08:59)
[2021-07-05] MEDS: Gabapentin 100 MG CAPSULE PO SCH ×2 (08:59→19:46)
[2021-07-05] MEDS: Nicotine 14 MG PATCH.TD24 TD SCH (08:59)
[2021-07-05] MEDS: Insulin LISPRO 300 UNITS/3 ML VIAL SUBQ SCH ×4 (09:13→19:31)
[2021-07-05] MEDS ORDERED: Vancomycin 1,250 MG/262.5 ML IV.SOLN IVPB SCH (12:00)
[2021-07-05] MEDS: traZODone 50 MG TABLET PO SCH (19:46)
[2021-07-05] MEDS: risperiDONE 1 MG TABLET PO SCH (19:46)
[2021-07-06 01:56] LABS: Basophils # 0.1 K/mcL (0.0-0.2); Basophils % 0.4 %; Eosinophils # 0.3 K/mcL (0.0-0.6); Hemoglobin 12.1 g/dL (11.5-15.4); Immature Granulocytes % 0.5 % (0-4); Lymphocytes # 2.2 K/mcL (0.6-4.6); Lymphocytes % 15.9 %; Mean Corpuscular HGB Conc 34.6 g/dL (31.6-35.5); Mean Corpuscular Hemoglobin 32.6 pg (28.0-33.3); Mean Corpuscular Volume 94.3 fL (83.0-100.0); Mean Platelet Volume 11.4 fL (9.4-12.4); Monocytes # 1.4 K/mcL (0.0-1.3); Monocytes % 9.8 %; Platelet Count 175 K/mcL (140-400); Red Blood Count 3.71 M/mcL (3.82-4.97); Red Cell Distribution Width 12.3 % (11.5-14.5); Segmented Neutrophils % 71.4 %; White Blood Count 13.9 K/mcL (4.3-11.1)
[2021-07-06 02:12] LABS: BUN/Creatinine Ratio 30 (6-26); Blood Urea Nitrogen 14 mg/dL (8-23); Carbon Dioxide 26 mEq/L (23-29); Chloride 99 mEq/L (98-107); Glucose 172 mg/dL (70-105); Osmolality,Calculated 279 (280-300); Potassium 3.7 mEq/L (3.5-5.1); Sodium 132 mEq/L (136-145); eGFR For African Americans > 60 (> 60); eGFR For Non-African Americans > 60 (> 60)
[2021-07-06] MEDS: Saline Nasal Spray 44 ML BOTTLE NS SCH ×6 (03:02→21:48)
[2021-07-06] MEDS: *HR* Enoxaparin 30 MG/0.3 ML SYRINGE SQ SCH (06:11)
[2021-07-06] MEDS: Budesonide/Formoterol 160/4.5 1 PUFF INH IH SCH ×2 (07:50→20:03)
[2021-07-06] MEDS: lisinopriL 20 MG TABLET PO SCH (09:48)
[2021-07-06] MEDS: Gabapentin 100 MG CAPSULE PO SCH ×2 (09:48→21:48)
[2021-07-06] MEDS: Nicotine 14 MG PATCH.TD24 TD SCH (09:48)
[2021-07-06] MEDS: Insulin DETEMIR 100 UNIT/ML X5UNITS SUBQ SCH (09:51)
[2021-07-06] MEDS: Insulin LISPRO 300 UNITS/3 ML VIAL SUBQ SCH ×4 (09:52→21:40)
[2021-07-06] MEDS: traZODone 50 MG TABLET PO SCH (21:48)
[2021-07-06] MEDS: risperiDONE 1 MG TABLET PO SCH (21:48)
[2021-07-07] MEDS: Saline Nasal Spray 44 ML BOTTLE NS SCH ×6 (01:23→20:13)
[2021-07-07] MEDS ORDERED: 0.9 % Sodium Chloride 250 ML ONE (03:01)
[2021-07-07] MEDS: *HR* Enoxaparin 30 MG/0.3 ML SYRINGE SQ SCH (05:12)
[2021-07-07 05:32] LABS: Basophils % 0.3 %; Eosinophils # 0.1 K/mcL (0.0-0.6); Hematocrit 34.8 % (35.3-44.9); Hemoglobin 11.9 g/dL (11.5-15.4); Immature Granulocytes % 0.6 % (0-4); Lymphocytes # 1.6 K/mcL (0.6-4.6); Lymphocytes % 11.1 %; Mean Corpuscular HGB Conc 34.2 g/dL (31.6-35.5); Mean Corpuscular Hemoglobin 32.6 pg (28.0-33.3); Mean Corpuscular Volume 95.3 fL (83.0-100.0); Mean Platelet Volume 11.7 fL (9.4-12.4); Monocytes # 1.3 K/mcL (0.0-1.3); Monocytes % 9.4 %; Neutrophils # 11.1 K/mcL (1.6-8.9); Platelet Count 172 K/mcL (140-400); Red Blood Count 3.65 M/mcL (3.82-4.97); Red Cell Distribution Width 12.3 % (11.5-14.5); Segmented Neutrophils % 77.6 %; White Blood Count 14.2 K/mcL (4.3-11.1)
[2021-07-07 05:51] LABS: BUN/Creatinine Ratio 21 (6-26); Blood Urea Nitrogen 11 mg/dL (8-23); Calcium 8.1 mg/dL (8.6-10.3); Carbon Dioxide 26 mEq/L (23-29); Chloride 103 mEq/L (98-107); Glucose 76 mg/dL (70-105); Osmolality,Calculated 274 (280-300); Potassium 3.4 mEq/L (3.5-5.1); Sodium 133 mEq/L (136-145); eGFR For African Americans > 60 (> 60); eGFR For Non-African Americans > 60 (> 60)
[2021-07-07] MEDS: Budesonide/Formoterol 160/4.5 1 PUFF INH IH SCH ×2 (08:51→19:51)
[2021-07-07] MEDS: Nicotine 14 MG PATCH.TD24 TD SCH (09:07)
[2021-07-07] MEDS: Gabapentin 100 MG CAPSULE PO SCH ×2 (09:07→20:12)
[2021-07-07] MEDS: lisinopriL 20 MG TABLET PO SCH (09:07)
[2021-07-07] MEDS: Insulin DETEMIR 100 UNIT/ML X5UNITS SUBQ SCH (09:08)
[2021-07-07] MEDS: Insulin LISPRO 300 UNITS/3 ML VIAL SUBQ SCH ×4 (09:12→20:42)
[2021-07-07] MEDS: traZODone 50 MG TABLET PO SCH (20:12)
[2021-07-07] MEDS: risperiDONE 1 MG TABLET PO SCH (20:12)
[2021-07-08] MEDS: Saline Nasal Spray 44 ML BOTTLE NS SCH ×6 (00:44→21:22)
[2021-07-08] MEDS: *HR* Enoxaparin 30 MG/0.3 ML SYRINGE SQ SCH (05:02)
[2021-07-08] MEDS: Budesonide/Formoterol 160/4.5 1 PUFF INH IH SCH ×2 (07:53→20:28)
[2021-07-08] MEDS: Gabapentin 100 MG CAPSULE PO SCH ×2 (10:01→21:22)
[2021-07-08] MEDS: lisinopriL 20 MG TABLET PO SCH (10:01)
[2021-07-08] MEDS: Nicotine 14 MG PATCH.TD24 TD SCH (10:03)
[2021-07-08 10:04] LABS: BUN/Creatinine Ratio 26 (6-26); Blood Urea Nitrogen 13 mg/dL (8-23); Calcium 8.3 mg/dL (8.6-10.3); Carbon Dioxide 23 mEq/L (23-29); Chloride 99 mEq/L (98-107); Glucose 118 mg/dL (70-105); Osmolality,Calculated 273 (280-300); Potassium 3.8 mEq/L (3.5-5.1); Sodium 131 mEq/L (136-145); eGFR For African Americans > 60 (> 60); eGFR For Non-African Americans > 60 (> 60)
[2021-07-08] MEDS: Insulin LISPRO 300 UNITS/3 ML VIAL SUBQ SCH ×4 (10:06→21:25)
[2021-07-08] MEDS: traZODone 50 MG TABLET PO SCH (21:22)
[2021-07-08] MEDS: risperiDONE 1 MG TABLET PO SCH (22:14)
[2021-07-09] MEDS: Saline Nasal Spray 44 ML BOTTLE NS SCH ×3 (01:09→09:09)
[2021-07-09 04:20] LABS: Basophils # 0.1 K/mcL (0.0-0.2); Basophils % 0.4 %; Eosinophils # 0.2 K/mcL (0.0-0.6); Eosinophils % 1.7 %; Hematocrit 35.5 % (35.3-44.9); Hemoglobin 11.7 g/dL (11.5-15.4); Immature Granulocytes % 0.5 % (0-4); Lymphocytes # 2.1 K/mcL (0.6-4.6); Lymphocytes % 16.7 %; Mean Corpuscular Hemoglobin 31.6 pg (28.0-33.3); Mean Corpuscular Volume 95.9 fL (83.0-100.0); Monocytes # 1.5 K/mcL (0.0-1.3); Monocytes % 11.6 %; Neutrophils # 8.8 K/mcL (1.6-8.9); Platelet Count 163 K/mcL (140-400); Red Cell Distribution Width 12.4 % (11.5-14.5); Segmented Neutrophils % 69.1 %; White Blood Count 12.8 K/mcL (4.3-11.1)
[2021-07-09] MEDS: *HR* Enoxaparin 30 MG/0.3 ML SYRINGE SQ SCH (04:26)
[2021-07-09 04:41] LABS: BUN/Creatinine Ratio 23 (6-26); Blood Urea Nitrogen 12 mg/dL (8-23); Calcium 8.2 mg/dL (8.6-10.3); Carbon Dioxide 23 mEq/L (23-29); Chloride 99 mEq/L (98-107); Glucose 147 mg/dL (70-105); Osmolality,Calculated 272 (280-300); Potassium 4.7 mEq/L (3.5-5.1); Sodium 130 mEq/L (136-145); eGFR For African Americans > 60 (> 60); eGFR For Non-African Americans > 60 (> 60)
[2021-07-09] MEDS: Budesonide/Formoterol 160/4.5 1 PUFF INH IH SCH (07:53)
[2021-07-09] MEDS: lisinopriL 20 MG TABLET PO SCH (09:09)
[2021-07-09] MEDS: Gabapentin 100 MG CAPSULE PO SCH (09:09)
[2021-07-09] MEDS: Insulin LISPRO 300 UNITS/3 ML VIAL SUBQ SCH (09:10)
[2021-07-09] MEDS: Nicotine 14 MG PATCH.TD24 TD SCH (09:11)
[2021-07-09 12:15] VITALS: BP 110/66; PULSE 66; TEMP 97.4; O2SAT 97
== END 2021-07-09 12:33 | DRG 177 ==
LOC: 3NENU 09:54 → EMEROOARM 09:54 → SUATTDRO 15:15 → 3NENU 16:17
PROVIDERS: ADMIT Internal Medicine; ATTEND Internal Medicine